=== PATIENT | male | born 1930 | race Caucasian/White ===

== ENCOUNTER 2017-10-12 20:49 | Observation (INO) | payer OTHER ==
[2017-10-12 20:59] VITALS: BMI 28.2
--- NOTE | 2017-10-12 23:24 | PDOC ---
History of Present Illness - General Chief Complaint: Nausea/Vomiting Stated Complaint: WEAKNESS Time Seen by Provider: 10/12/17 23:23 History Source: Patient Exam Limitations: Dementia - History of Present Illness Initial Comments: 10/13/17 01:49 Patient is an 86-year-old male with past medical history of hypertension, diabetes, dementia, overactive bladder, A. fib, presents to the emergency department today complaining of nausea and vomiting starting today. Patient has overall unsure as to why he is in the emergency department. He states that he was sent here for evaluation by his assisted living facility. He states that right now he feels nauseous. Denies fevers, chills, shortness of breath, chest pain, diarrhea and constipation. Past History - Travel Traveled outside of the country in the last 30 days: No Close contact w/someone who was outside of country & ill: No - Past Medical History Allergies/Adverse Reactions: Allergies Allergy/AdvReac Type Severity Reaction Status Date / Time No Known Allergies Allergy Verified 10/13/17 00:11 Home Medications: Ambulatory Orders Acetaminophen 325 mg PO PRN 10/12/17 Albuterol Sulfate Inhaler - [Ventolin Hfa Inhaler -] 2 inh PO Q6H 10/12/17 Atorvastatin Ca [Lipitor] 40 mg PO HS 10/12/17 Docusate Sodium 200 mg PO DAILY 10/12/17 Mag Hydrox/Aluminum Hyd/Simeth [Antacid Suspension] 355 ml PO DAILY 10/12/17 Metformin HCl 500 mg PO DAILY 10/12/17 Nitroglycerin [Nitrostat] 0.4 mg SL PRN 10/12/17 Polyethylene Glycol 3350 [Glycolax] 119 gm PO DAILY 10/12/17 Potassium Chloride [Klor-Con 10] 10 meq PO DAILY 10/12/17 Quetiapine Fumarate [Seroquel -] 25 mg PO HS 10/12/17 Aspirin 81 mg PO DAILY 10/13/17 Carvedilol [Coreg] 12.5 mg PO DAILY 10/13/17 Cholecalciferol (Vitamin D3) [Vitamin D3] 50,000 unit PO DAILY 10/13/17 Dabigatran Etexilate Mesylate [Pradaxa -] 150 mg PO BID 10/13/17 Isosorbide Dinitrate [Isordil -] 20 mg PO DAILY 10/13/17 Lisinopril 5 mg PO DAILY 10/13/17 Mirabegron [Myrbetriq] 50 mg PO DAILY 10/13/17 - Suicide/Smoking/Psychosocial Hx Smoking History: Unknown if ever smoked Have you smoked in the past 12 months: No Information on smoking cessation initiated: No Hx Alcohol Use: No Drug/Substance Use Hx: No Review of Systems - Review of Systems Able to Perform ROS?: Yes (limited d/t dementia) Comments:: 10/13/17 01:53 CONSTITUTIONAL: Absent: fever, chills, diaphoresis, generalized weakness, malaise, loss of appetite HEENT: Absent: rhinorrhea, nasal congestion, throat pain, throat swelling, difficulty swallowing, mouth swelling, ear pain, eye pain, visual Changes CARDIOVASCULAR: Absent: chest pain, loss of consciousness, palpitations, irregular heart rate, peripheral edema RESPIRATORY: Present: cough Absent: shortness of breath, dyspnea with exertion, orthopnea, wheezing, stridor, hemoptysis GASTROINTESTINAL: Present: abdominal pain, vomiting Absent: abdominal pain, abdominal distension, nausea, vomiting, diarrhea, constipation, melena, hematochezia GENITOURINARY: Absent: dysuria, frequency, urgency, hesitancy, hematuria, flank pain, genital pain MUSCULOSKELETAL: Absent: myalgia, arthralgia, joint swelling SKIN: Absent: rash, itching, pallor HEMATOLOGIC/IMMUNOLOGIC: Absent: easy bleeding, easy bruising, lymphadenopathy, frequent infections ENDOCRINE: Absent: unexplained weight gain, unexplained weight loss, heat intolerance, cold intolerance NEUROLOGIC: Absent: headache, focal weakness or paresthesias, dizziness, unsteady gait, seizure, mental status changes, bladder or bowel incontinence PSYCHIATRIC: Absent: anxiety, depression, suicidal or homicidal ideation, hallucinations. Is the patient limited Kinyarwanda proficient: No *Physical Exam - Vital Signs Last Vital Signs Temp Pulse Resp BP Pulse Ox 98.6 F 69 20 159/86 97 10/12/17 20:56 10/12/17 20:56 10/12/17 20:56 10/12/17 20:56 10/12/17 20:56 - Physical Exam Comments: 10/13/17 01:54 GENERAL: Well developed, well nourished. Awake and alert x2 unsure of date. No acute distress, mildly confused. HEENT: Normocephalic, atraumatic. PERRLA, EOMI. No conjunctival pallor. Sclera are non- icteric. Moist mucous membranes. Oropharynx is clear. NECK: Supple. Full ROM. No JVD. Carotid pulses 2+ and symmetric, without bruits. No thyromegaly. No lymphadenopathy. CARDIOVASCULAR: Regular rate and rhythm. No murmurs, rubs, or gallops. Distal pulses are 2+ and symmetric. PULMONARY: No evidence of respiratory distress. Lungs clear to auscultation bilaterally. No wheezing, rales or rhonchi. ABDOMINAL: Soft. Non-tender. Non-distended. No rebound or guarding. No organomegaly. Normoactive bowel sounds. MUSCULOSKELETAL Normal range of motion at all joints. No bony deformities or tenderness. No CVA tenderness. EXTREMITIES: No cyanosis. No clubbing. No edema. No calf tenderness. SKIN: Warm and dry. Normal capillary refill. No rashes. No jaundice. NEUROLOGICAL: Alert, awake, appropriate. Cranial nerves 2-12 intact. No deficits to light touch and temperature in face, upper extremities and lower extremities. No motor deficits in the in face, upper extremities and lower extremities. Normoreflexic in the upper and lower extremities. Normal speech. Toes are down- going bilaterally. Gait is normal without ataxia. PSYCHIATRIC: Cooperative. Good eye contact. Appropriate mood and affect. ED Treatment Course - LABORATORY CBC & Chemistry Diagram: 10/13/17 00:32 10/13/17 00:32 Medical Decision Making - Medical Decision Making 10/13/17 01:52 Patient is an 86-year-old male with past medical history of hypertension, diabetes, dementia, overactive bladder, A. fib, presents to the emergency department today complaining of nausea and vomiting starting today.Upon further investigation patient also has an ICD, and cardiac surgery at some point. Given the patient is uncertain as to why he is in the emergency department Will initiate a broad workup at this time. We'll rule out ACS, pneumonia, gastroenteritis, flu 1.CBC, CMP, PT/INR, lipase, troponin, UA 2.EKG, chest x-ray, influenza swab 3.Zofran, fluids 4.reevaluate 10/13/17 02:55 EKG shows NSR with a rate of 68 bpm QTC 455, left bundle branch block, left axis deviation no acute ST-T wave changes. No old EKGs available for comparison at this time. [facility] to see if they have an old EKG to compare to. First troponin is negative lab work is relatively unremarkable. 10/13/17 05:[address] [facility] They state that the patient was sent to the emergency department today for complaints of generalized weakness and burning sensation in his chest in addition to vomiting. They do not have an old EKG on file for the patient. At this time will place the patient in telemetry observation for rule out atypical chest pain /ACS. Spoke with Dr. Bruce who accepts the patient to telemetry obs. *DC/Admit/Observation/Transfer Diagnosis at time of Disposition: Atypical chest pain, LBBB (left bundle branch block) Vomiting Qualifiers: Vomiting type: unspecified Vomiting Intractability: non-intractable Nausea presence: with nausea Qualified Code(s): R11.2 - Nausea with vomiting, unspecified - Discharge Dispostion Condition at time of disposition: Stable Admit: Yes - Referrals - Patient Instructions - Post Discharge Activity
[2017-10-13] MEDS ORDERED: SODIUM CHLORIDE 1,000 ML IV STA (00:04)
[2017-10-13] MEDS ORDERED: ONDANSETRON 4 MG/2 ML VIAL IVPUSH ONE (00:04)
[2017-10-13] MEDS ORDERED: ONDANSETRON 4 MG/2 ML VIAL ONE (00:41)
[2017-10-13 00:42] LABS: BASO % 0.5 % (0-2.0); EOS % 5.2 % (0-4.5); HEMATOCRIT 38.2 % (35.4-49); LYMPH % 20.1 % (8-40); MCH 29.2 pg (25.7-33.7); MCHC 33.9 g/dl (32.0-35.9); MEAN CELL VOLUME 86.1 fl (80-96); MEAN PLT VOLUME 7.6 fl (7.5-11.1); MONO % 12.6 % (3.8-10.2); NEUT % 61.6 % (42.8-82.8); PLATELET COUNT 157 K/MM3 (134-434); RBC 4.44 M/mm3 (4.00-5.60); RDW 14.6 % (11.9-15.9); WHITE BLOOD COUNT 4.9 K/mm3 (4.0-10.0)
[2017-10-13 00:59] LABS: INR 1.25 (0.82-1.09); PROTHROMBIN TIME (PATIENT) 14.1 SEC (9.98-11.88)
[2017-10-13 01:17] LABS: ALBUMIN 3.6 g/dl (3.4-5.0); ALK PHOS 117 U/L (45-117); ANION GAP 10 (8-16); BILIRUBIN,TOTAL 0.5 mg/dL (0.2-1.0); BLOOD UREA NITROGEN 15 mg/dL (7-18); CALCIUM 9.1 mg/dL (8.5-10.1); CHLORIDE 101 mmol/L (98-107); CO2 26 mmol/L (21-32); CREATININE 0.8 mg/dL (0.7-1.3); GLUCOSE,RANDOM 161 mg/dL (74-106); SGOT/AST 20 U/L (15-37); SGPT/ALT 29 U/L (12-78); SODIUM 137 mmol/L (136-145); TOT PROT 7.2 g/dl (6.4-8.2)
--- NOTE | 2017-10-13 04:59 | PN ---
Teaching Attending Note Name of Resident: Aren Arguello ATTENDING PHYSICIAN STATEMENT I saw and evaluated the patient. I reviewed the resident's note and discussed the case with the resident. I agree with the resident's findings and plan as documented. SUBJECTIVE: 86 M With DM, HTN HLD, ? CABG who presents with nausea, vomiting and burning chest pain. Pt. unwilling to offer rmore history OBJECTIVE: Physical: VS: Vital Signs Period Temp Pulse Resp BP Sys/Higgins Pulse Ox Last 24 Hr 98.6 F 69 20 159/86 97 REFUSED Phyical Exam CBCD WBC 4.9 K/mm3 (4.0-10.0) 10/13/17 00:32 RBC 4.44 M/mm3 (4.00-5.60) 10/13/17 00:32 Hgb 13.0 GM/dL (11.7-16.9) 10/13/17 00:32 Hct 38.2 % (35.4-49) 10/13/17 00:32 MCV 86.1 fl (80-96) 10/13/17 00:32 MCHC 33.9 g/dl (32.0-35.9) 10/13/17 00:32 RDW 14.6 % (11.9-15.9) 10/13/17 00:32 Plt Count 157 K/MM3 (134-434) 10/13/17 00:32 MPV 7.6 fl (7.5-11.1) 10/13/17 00:32 CMP Sodium 137 mmol/L (136-145) 10/13/17 00:32 Potassium 4.0 mmol/L (3.5-5.1) 10/13/17 00:32 Chloride 101 mmol/L (98-107) 10/13/17 00:32 Carbon Dioxide 26 mmol/L (21-32) 10/13/17 00:32 Anion Gap 10 (8-16) 10/13/17 00:32 BUN 15 mg/dL (7-18) 10/13/17 00:32 Creatinine 0.8 mg/dL (0.7-1.3) 10/13/17 00:32 Creat Clearance w eGFR > 60 (>60) 10/13/17 00:32 Random Glucose 161 mg/dL (74-106) H 10/13/17 00:32 Calcium 9.1 mg/dL (8.5-10.1) 10/13/17 00:32 Total Bilirubin 0.5 mg/dL (0.2-1.0) 10/13/17 00:32 AST 20 U/L (15-37) 10/13/17 00:32 ALT 29 U/L (12-78) 10/13/17 00:32 Alkaline Phosphatase 117 U/L (45-117) 10/13/17 00:32 Total Protein 7.2 g/dl (6.4-8.2) 10/13/17 00:32 Albumin 3.6 g/dl (3.4-5.0) 10/13/17 00:32 CARDIAC ENZYMES Creatine Kinase 53 IU/L (39-308) 10/13/17 00:32 Troponin I < 0.02 ng/ml (0.00-0.05) 10/13/17 00:32 EKG- LBBB HEART6 ASSESSMENT AND PLAN: 86 M With DM, HTN HLD, ? CABG who presents with nausea, vomiting and burning chest pain 1.) Atypical Chest Pain - Trend Trop/EKG - C/W ASA, Statin and BB - Nitro/Morphine prn if chest pain reoccurs 2.) HTN - C?W Home meds 3.) HLD - C/W Statin 4.) ? Hx. oF Afib - C/W Pradexa - BB 5.) Dementia - Monitor QtC - C/W Seroquel 5.) Dvt Ppx - On Pradexa Place in Med- Tele
--- NOTE | 2017-10-13 05:50 | PN ---
Teaching Attending Note Name of Resident: Aren Arguello ATTENDING PHYSICIAN STATEMENT I saw and evaluated the patient. I reviewed the resident's note and discussed the case with the resident. I agree with the resident's findings and plan as documented. SUBJECTIVE: OBJECTIVE: ASSESSMENT AND PLAN:
--- NOTE | 2017-10-13 05:58 | HP ---
CHIEF COMPLAINT: nausea/vomiting PCP: unknown HISTORY OF PRESENT ILLNESS: Pt is an 86 y/o M with PMH HTN, DM, dementia, overactive bladder, A. fib who came to ED with complaint of nausea and vomiting. Pt uncooperative and unable/ unwilling to give history. History from record. Pt awake, alert, and in no distress. Unclear if oriented as pt is not cooperative. ER course was notable for: (1) labs unremarkable (2) CXR unremarkable (pending official read). EKG with wide complex, discordant T in precordium, with Q throughout precordium (likely due to PPM) (3) Recent Travel: denies PAST MEDICAL HISTORY: as above PAST SURGICAL HISTORY: Social History: Smoking: unknown Alcohol: unknown Drugs: unknown Family History: unknown Allergies No Known Allergies Allergy (Verified 10/13/17 00:11) HOME MEDICATIONS: Home Medications Medication Instructions Recorded Acetaminophen 325 mg PO PRN 10/12/17 Albuterol Sulfate Inhaler - 2 inh PO Q6H 10/12/17 [Ventolin Hfa Inhaler -] Atorvastatin Ca [Lipitor] 40 mg PO HS 10/12/17 Docusate Sodium 200 mg PO DAILY 10/12/17 Mag Hydrox/Aluminum Hyd/Simeth 355 ml PO DAILY 10/12/17 [Antacid Suspension] Metformin HCl 500 mg PO DAILY 10/12/17 Nitroglycerin [Nitrostat] 0.4 mg SL PRN 10/12/17 Polyethylene Glycol 3350 [Glycolax] 119 gm PO DAILY 10/12/17 Potassium Chloride [Klor-Con 10] 10 meq PO DAILY 10/12/17 Quetiapine Fumarate [Seroquel -] 25 mg PO HS 10/12/17 Aspirin 81 mg PO DAILY 10/13/17 Carvedilol [Coreg] 12.5 mg PO DAILY 10/13/17 Cholecalciferol (Vitamin D3) 50,000 unit PO DAILY 10/13/17 [Vitamin D3] Dabigatran Etexilate Mesylate 150 mg PO BID 10/13/17 [Pradaxa -] Isosorbide Dinitrate [Isordil -] 20 mg PO DAILY 10/13/17 Lisinopril 5 mg PO DAILY 10/13/17 Mirabegron [Myrbetriq] 50 mg PO DAILY 10/13/17 REVIEW OF SYSTEMS Unable to obtain PHYSICAL EXAMINATION Vital Signs - 24 hr 10/12/17 20:56 Temperature 98.6 F Pulse Rate 69 Respiratory 20 Rate Blood Pressure 159/86 O2 Sat by Pulse 97 Oximetry (%) Pt refusing exam. Laboratory Results - last 24 hr 10/13/17 10/13/17 10/13/17 00:32 00:32 00:32 WBC 4.9 RBC 4.44 Hgb 13.0 Hct 38.2 MCV 86.1 MCH 29.2 MCHC 33.9 RDW 14.6 Plt Count 157 MPV 7.6 Neutrophils % 61.6 Lymphocytes % 20.1 Monocytes % 12.6 H Eosinophils % 5.2 H Basophils % 0.5 PT with INR INR Sodium 137 Potassium 4.0 Chloride 101 Carbon Dioxide 26 Anion Gap 10 BUN 15 Creatinine 0.8 Creat Clearance w eGFR > 60 Random Glucose 161 H Calcium 9.1 Total Bilirubin 0.5 AST 20 ALT 29 Alkaline Phosphatase 117 Creatine Kinase Troponin I Total Protein 7.2 Albumin 3.6 Lipase 172 10/13/17 10/13/17 00:32 00:32 WBC RBC Hgb Hct MCV MCH MCHC RDW Plt Count MPV Neutrophils % Lymphocytes % Monocytes % Eosinophils % Basophils % PT with INR 14.10 H INR 1.25 H Sodium Potassium Chloride Carbon Dioxide Anion Gap BUN Creatinine Creat Clearance w eGFR Random Glucose Calcium Total Bilirubin AST ALT Alkaline Phosphatase Creatine Kinase 53 Troponin I < 0.02 Total Protein Albumin Lipase ASSESSMENT/PLAN: Pt is an 86 y/o M with PMH DM, HTN, overactive bladder, Afib with sternotomy scar and apical single lead pacemaker visible on CXR who presented with nausea and vomiting. Per record, pt felt ok during interview in EM. Was uncooperative for my H&P. Pt is being observed because of EKG revealing possible new LBBB. #r/o ACS -possible new LBBB on EKG. likely due to PPM. Repeat EKG in am -Trop neg. f/u repeat. -Pt did not complain of CP but had nausea/vomiting which could be anginal equivalent -Cardio consult (Dr. Edward) #DM -BGM -ISS #Dementia -1:1 obs as pt found dressing in street clothes wanting to leave ED -fall precautions #PPx -Hep Sub Q #Dispo -obs Aren Arguello MD PGY-1 IM Visit type - Emergency Visit Emergency Visit: Yes ED Registration Date: 10/13/17 Care time: The patient presented to the Emergency Department on the above date and was hospitalized for further evaluation of their emergent condition. - New Patient This patient is new to me today: Yes Date on this admission: 10/17/17 - Critical Care Critical Care patient: No
[2017-10-13] MEDS ORDERED: HEPARIN NA (PORCINE) 5,000 UNITS/ML 1ML VIAL SQ SCH (06:00)
[2017-10-13] MEDS ORDERED: MAG HYDROX/AL HYDROX/SIMETH 30 ML UNIT-DOSE CUP PO PRN (06:50)
[2017-10-13] MEDS ORDERED: INSULIN SLIDING SCALE (NOVOLOG) 1 VIAL SQ SCH (07:00)
[2017-10-13] MEDS ORDERED: metFORMIN HCL 500 MG TABLET (FP) PO SCH (07:00)
[2017-10-13] MEDS ORDERED: ISOSORBIDE MONONITRATE 30 MG TAB.SR.24H (FP) PO SCH (10:00)
[2017-10-13] MEDS ORDERED: ISOSORBIDE DINITRATE 20 MG TABLET (FP) PO SCH (10:00)
[2017-10-13] MEDS ORDERED: ASPIRIN 81 MG CHEWABLE TABLETS PO SCH (10:00)
[2017-10-13] MEDS ORDERED: DOCUSATE SODIUM 100 MG CAPSULE (FP) PO SCH (10:00)
[2017-10-13] MEDS ORDERED: CARVEDILOL 12.5 MG TABLET (FP) PO SCH (10:00)
[2017-10-13] MEDS ORDERED: LISINOPRIL 5 MG TABLET (FP) PO SCH (10:00)
[2017-10-13] MEDS ORDERED: PATIENT'S OWN MEDICATION (NON-FORMULARY) (Mirabegron [Myrbetriq] 50 MG) PO SCH (10:00)
[2017-10-13 10:32] LABS: BASO % 0.4 % (0-2.0); EOS % 3.7 % (0-4.5); HEMATOCRIT 37.5 % (35.4-49); HEMOGLOBIN 12.6 GM/dL (11.7-16.9); LYMPH % 13.4 % (8-40); MCH 28.9 pg (25.7-33.7); MCHC 33.7 g/dl (32.0-35.9); MEAN CELL VOLUME 85.8 fl (80-96); MEAN PLT VOLUME 7.2 fl (7.5-11.1); MONO % 9.7 % (3.8-10.2); NEUT % 72.8 % (42.8-82.8); PLATELET COUNT 140 K/MM3 (134-434); RBC 4.37 M/mm3 (4.00-5.60); RDW 14.6 % (11.9-15.9); WHITE BLOOD COUNT 4.9 K/mm3 (4.0-10.0)
--- NOTE | 2017-10-13 10:59 | EKG ---
Test Reason : Blood Pressure : / mmHG Vent. Rate : 068 BPM Atrial Rate : 068 BPM P-R Int : 210 ms QRS Dur : 140 ms QT Int : 428 ms P-R-T Axes : 000 -32 072 degrees QTc Int : 455 ms SINUS RHYTHM WITH 1ST DEGREE A-V BLOCK LEFT AXIS DEVIATION LEFT BUNDLE BRANCH BLOCK ABNORMAL ECG NO PREVIOUS ECGS AVAILABLE Confirmed by QASIM MACIAS MD ([id number]) on 10/13/2017 10:59:08 AM Referred By: Confirmed By:QASIM MACIAS MD
[2017-10-13 11:20] LABS: ALBUMIN 3.5 g/dl (3.4-5.0); ANION GAP 6 (8-16); BLOOD UREA NITROGEN 14 mg/dL (7-18); CALCIUM 8.4 mg/dL (8.5-10.1); CHLORIDE 103 mmol/L (98-107); CO2 28 mmol/L (21-32); CREATININE 0.9 mg/dL (0.7-1.3); GLUCOSE,RANDOM 163 mg/dL (74-106); POTASSIUM 4.6 mmol/L (3.5-5.1); SGOT/AST 16 U/L (15-37); SGPT/ALT 26 U/L (12-78); SODIUM 137 mmol/L (136-145)
[2017-10-13 11:25] LABS: ALK PHOS 113 U/L (45-117); BILIRUBIN,TOTAL 0.7 mg/dL (0.2-1.0); TOT PROT 6.5 g/dl (6.4-8.2)
--- NOTE | 2017-10-13 12:11 | PN ---
Physical Exam: SUBJECTIVE: 86 M With DM, HTN HLD, S/p CABG who presents with nausea, vomiting and burning chest pain. Pt. unwilling to offer rmore history Pt seen and examined at bed side. denies any chest pain, N/V/D/C. denies any abdominal pain. OBJECTIVE: Vital Signs Period Temp Pulse Resp BP Sys/Higgins Pulse Ox Last 24 Hr 98 F-98.6 F 69-90 18-24 135-159/75-86 97-98 GENERAL: The patient is awake, alert, and fully oriented, in no acute distress. HEAD: Normal with no signs of trauma. EYES: sclera anicteric, conjunctiva clear. ENT: moist mucous membranes. NECK: supple. LUNGS: Breath sounds equal, clear to auscultation bilaterally, no wheezes, no crackles, no accessory muscle use. HEART: Regular rate and rhythm, S1, S2 without murmur, rub or gallop. ABDOMEN: Soft, nontender, nondistended, normoactive bowel sounds, no guarding, no rebound, no hepatosplenomegaly, no masses. EXTREMITIES: 2+ pulses, warm, well-perfused, no edema. NEUROLOGICAL: no focal deficit. Normal speech, gait not observed. PSYCH: Normal mood, normal affect. SKIN: Warm, dry, Laboratory Results - last 24 hr 10/13/17 10/13/17 10/13/17 00:32 00:32 00:32 WBC 4.9 RBC 4.44 Hgb 13.0 Hct 38.2 MCV 86.1 MCH 29.2 MCHC 33.9 RDW 14.6 Plt Count 157 MPV 7.6 Neutrophils % 61.6 Lymphocytes % 20.1 Monocytes % 12.6 H Eosinophils % 5.2 H Basophils % 0.5 PT with INR INR Sodium 137 Potassium 4.0 Chloride 101 Carbon Dioxide 26 Anion Gap 10 BUN 15 Creatinine 0.8 Creat Clearance w eGFR > 60 Random Glucose 161 H Calcium 9.1 Total Bilirubin 0.5 AST 20 ALT 29 Alkaline Phosphatase 117 Creatine Kinase Troponin I Total Protein 7.2 Albumin 3.6 Lipase 172 10/13/17 10/13/17 10/13/17 00:32 00:32 10:00 WBC 4.9 RBC 4.37 Hgb 12.6 Hct 37.5 MCV 85.8 MCH 28.9 MCHC 33.7 RDW 14.6 Plt Count 140 MPV 7.2 L Neutrophils % 72.8 Lymphocytes % 13.4 D Monocytes % 9.7 Eosinophils % 3.7 Basophils % 0.4 PT with INR 14.10 H INR 1.25 H Sodium Potassium Chloride Carbon Dioxide Anion Gap BUN Creatinine Creat Clearance w eGFR Random Glucose Calcium Total Bilirubin AST ALT Alkaline Phosphatase Creatine Kinase 53 Troponin I < 0.02 Total Protein Albumin Lipase 10/13/17 10:00 WBC RBC Hgb Hct MCV MCH MCHC RDW Plt Count MPV Neutrophils % Lymphocytes % Monocytes % Eosinophils % Basophils % PT with INR INR Sodium 137 Potassium 4.6 Chloride 103 Carbon Dioxide 28 Anion Gap 6 L BUN 14 Creatinine 0.9 Creat Clearance w eGFR > 60 Random Glucose 163 H Calcium 8.4 L Total Bilirubin 0.7 D AST 16 ALT 26 Alkaline Phosphatase 113 Creatine Kinase Troponin I < 0.02 Total Protein 6.5 Albumin 3.5 Lipase Active Medications Generic Name Dose Route Start Last Admin Trade Name Freq PRN Reason Stop Dose Admin Al Hydroxide/Mg Hydroxide 30 ml 10/13/17 06:50 Mylanta Oral Suspension - PO DAILY PRN INDIGESTION Aspirin 81 mg 10/13/17 10:00 10/13/17 09:36 Asa - PO 81 mg DAILY FRANCINE Administration Atorvastatin Calcium 40 mg 10/13/17 22:00 Lipitor - PO HS [facility] Carvedilol 12.5 mg 10/13/17 10:00 10/13/17 09:36 Coreg - PO 12.5 mg DAILY FRANCINE Administration Docusate Sodium 200 mg 10/13/17 10:00 10/13/17 09:36 Colace - PO 200 mg DAILY FRANCINE Administration Ergocalciferol 50,000 unit 10/18/17 10:00 Drisdol - PO Q30D FRANCINE Insulin Aspart 1 vial 10/13/17 07:00 10/13/17 12:10 Novolog Vial Sliding Scale - SQ Not Given ACHS [facility] Protocol Isosorbide Mononitrate 30 mg 10/13/17 10:00 10/13/17 09:36 Imdur - PO 30 mg DAILY FRANCINE Administration Lisinopril 5 mg 10/13/17 10:00 10/13/17 09:36 Prinivil PO 5 mg DAILY FRANCINE Administration Metformin HCl 500 mg 10/13/17 07:00 10/13/17 09:35 Glucophage - PO 500 mg DAILY@0700 FRANCINE Administration Non-Formulary Medication 50 mg 10/13/17 10:00 Mirabegron [Myrbetriq] PO DAILY FRANCINE Quetiapine Fumarate 25 mg 10/13/17 22:00 Seroquel - PO HS FRANCINE CBC, BMP 10/13/17 10:00 10/13/17 10:00 ASSESSMENT/PLAN: 86 M With DM, HTN HLD, ? CABG who presents with nausea, vomiting and burning chest pain 1.) Atypical Chest Pain - Trend Trop/EKG - C/W ASA, Statin and BB - Nitro/Morphine prn if chest pain reoccurs 2.) HTN - C/W Home meds 3.) HLD - C/W Statin 4.) Hx. oF Afib - C/W Pradexa - BB 5.) Dementia - Monitor QtC - C/W Seroquel 5.) Dvt Ppx - On Pradexa Place in Med- Tele Visit type - Emergency Visit Emergency Visit: Yes ED Registration Date: 10/13/17 Care time: The patient presented to the Emergency Department on the above date and was hospitalized for further evaluation of their emergent condition. - New Patient This patient is new to me today: Yes Date on this admission: 10/16/17 - Critical Care Critical Care patient: No - Discharge Referral Referred to [facility] Med P.C.: No
--- NOTE | 2017-10-13 12:30 | CON.CARD ---
Consult Consult Specialty:: cardiology - History of Present Illness Chief Complaint: Afib. Abnormal ECG History of Present Illness: 86 yo M with known Afib, single lead PPM, DM, HTN. He is admitted with nausea and vomiting. ECG showing Afib with LBBB. Labs are unremarkable. He has a prior history of heart operation. There is no dyspnea, denies chest pain and he seems comfortable. - History Source History Provided By: Patient, Medical Record Limitations to Obtaining History: Dementia - Past Medical History Cardio/Vascular: Yes: AFIB - Past Surgical History Past Surgical History: Yes: Bypass - Alcohol/Substance Use Hx Alcohol Use: No - Smoking History Smoking history: Unknown if ever smoked Have you smoked in the past 12 months: No Home Medications - Allergies Allergies/Adverse Reactions: Allergies Allergy/AdvReac Type Severity Reaction Status Date / Time No Known Allergies Allergy Verified 10/13/17 00:11 - Home Medications Home Medications: Ambulatory Orders Acetaminophen 325 mg PO PRN 10/12/17 Albuterol Sulfate Inhaler - [Ventolin HFA Inhaler -] 2 inh PO Q6H 10/12/17 Atorvastatin Ca [Lipitor] 40 mg PO HS 10/12/17 Docusate Sodium 200 mg PO DAILY 10/12/17 Mag Hydrox/Aluminum Hyd/Simeth [Antacid Suspension] 355 ml PO DAILY 10/12/17 Metformin HCl 500 mg PO DAILY 10/12/17 Nitroglycerin [Nitrostat] 0.4 mg SL PRN 10/12/17 Polyethylene Glycol 3350 [Glycolax] 119 gm PO DAILY 10/12/17 Potassium Chloride [Klor-Con 10] 10 meq PO DAILY 10/12/17 Quetiapine Fumarate [Seroquel -] 25 mg PO HS 10/12/17 Aspirin 81 mg PO DAILY 10/13/17 Carvedilol [Coreg] 12.5 mg PO DAILY 10/13/17 Cholecalciferol (Vitamin D3) [Vitamin D3] 50,000 unit PO DAILY 10/13/17 Dabigatran Etexilate Mesylate [Pradaxa -] 150 mg PO BID 10/13/17 Isosorbide Dinitrate [Isordil -] 20 mg PO DAILY 10/13/17 Lisinopril 5 mg PO DAILY 10/13/17 Mirabegron [Myrbetriq] 50 mg PO DAILY 10/13/17 Review of Systems Unable to obtain ROS, reason: Dementia Vital Signs: Vital Signs Temperature 98 F 10/13/17 10:00 Pulse Rate 83 10/13/17 10:00 Respiratory Rate 24 10/13/17 10:00 Blood Pressure 135/76 10/13/17 10:00 O2 Sat by Pulse Oximetry (%) 98 10/13/17 05:49 Constitutional: Yes: Well Nourished, No Distress, Calm Eyes: Yes: Conjunctiva Clear, EOM Intact HENT: Yes: Atraumatic, Normocephalic Neck: Yes: Supple, Trachea Midline Respiratory: Yes: Regular, CTA Bilaterally Gastrointestinal: Yes: Normal Bowel Sounds, Soft Cardiovascular: Yes: Regular Rate and Rhythm JVD: No Carotid Bruit: No Heart Sounds: Yes: S1, S2 Murmur: No: Systolic Murmur, Diastolic Murmur Extremities: Yes: WNL Edema: No - Other Data Labs, Other Data: CBC, BMP 10/13/17 10:00 10/13/17 10:00 INR, PTT INR 1.25 (0.82-1.09) H 10/13/17 00:32 Troponin, BNP 10/13/17 10/13/17 00:32 10:00 Troponin I < 0.02 < 0.02 Troponin, BNP 10/13/17 10/13/17 00:32 10:00 Troponin I < 0.02 < 0.02 Afib LBBB Imaging - Results Chest X-ray: Report Reviewed Problem List - Problems (1) LBBB (left bundle branch block) Code(s): I44.7 - LEFT BUNDLE-BRANCH BLOCK, UNSPECIFIED Assessment/Plan History of heart disease with single lead PPM and Afib admitted with vomiting. ECG with LBBB telemetry shows intermittent demand pacing. No signs of heart failure or ischemia No further in-patient testing is required. Will see as needed
--- NOTE | 2017-10-13 14:17 | DS ---
Physical Exam: SUBJECTIVE: Patient seen and examined at bedside. chest pain and nausea has resolved. denies any fever, chills,abdominal pain or urinary symptoms brandt nd cleared by timekeeper supervisor to DC to SNF he came from. OBJECTIVE: Vital Signs Period Temp Pulse Resp BP Sys/Higgins Pulse Ox Last 24 Hr 98 F-98.6 F 69-90 18-24 135-159/75-86 97-98 PHYSICAL EXAM GENERAL: The patient is awake, alert, oriented, in no acute distress. HEAD: Normal with no signs of trauma. EYES: sclera anicteric, conjunctiva clear. ENT: moist mucous membranes. NECK: supple. LUNGS: Breath sounds equal, clear to auscultation bilaterally, no wheezes, no crackles, no accessory muscle use. HEART: Regular rate and rhythm, S1, S2 without murmur, rub or gallop.med sternal scar ABDOMEN: Soft, nontender, nondistended, normoactive bowel sounds, no guarding, no rebound, no hepatosplenomegaly, no masses. EXTREMITIES: 2+ pulses, warm, well-perfused, no edema. left leg scar NEUROLOGICAL: Cranial nerves II through XII grossly intact. Normal speech, gait not observed. PSYCH: Normal mood, normal affect. SKIN: Warm, dry, normal turgor, Home meds Acetaminophen 325 mg PO PRN 10/12/17 Albuterol Sulfate Inhaler - [Ventolin HFA Inhaler -] 2 inh PO Q6H 10/12/17 Atorvastatin Ca [Lipitor] 40 mg PO HS 10/12/17 Docusate Sodium 200 mg PO DAILY 10/12/17 Mag Hydrox/Aluminum Hyd/Simeth [Antacid Suspension] 355 ml PO DAILY 10/12/17 Metformin HCl 500 mg PO DAILY 10/12/17 Nitroglycerin [Nitrostat] 0.4 mg SL PRN 10/12/17 Polyethylene Glycol 3350 [Glycolax] 119 gm PO DAILY 10/12/17 Potassium Chloride [Klor-Con 10] 10 meq PO DAILY 10/12/17 Quetiapine Fumarate [Seroquel -] 25 mg PO HS 10/12/17 Aspirin 81 mg PO DAILY 10/13/17 Carvedilol [Coreg] 12.5 mg PO DAILY 10/13/17 Cholecalciferol (Vitamin D3) [Vitamin D3] 50,000 unit PO DAILY 10/13/17 Dabigatran Etexilate Mesylate [Pradaxa -] 150 mg PO BID 10/13/17 Isosorbide Dinitrate [Isordil -] 20 mg PO DAILY 10/13/17 Lisinopril 5 mg PO DAILY 10/13/17 Mirabegron [Myrbetriq] 50 mg PO DAILY 10/13/17 LABS Laboratory Results - last 24 hr 10/13/17 10/13/17 10/13/17 00:32 00:32 00:32 WBC 4.9 RBC 4.44 Hgb 13.0 Hct 38.2 MCV 86.1 MCH 29.2 MCHC 33.9 RDW 14.6 Plt Count 157 MPV 7.6 Neutrophils % 61.6 Lymphocytes % 20.1 Monocytes % 12.6 H Eosinophils % 5.2 H Basophils % 0.5 PT with INR INR Sodium 137 Potassium 4.0 Chloride 101 Carbon Dioxide 26 Anion Gap 10 BUN 15 Creatinine 0.8 Creat Clearance w eGFR > 60 POC Glucometer Random Glucose 161 H Calcium 9.1 Total Bilirubin 0.5 AST 20 ALT 29 Alkaline Phosphatase 117 Creatine Kinase Troponin I Total Protein 7.2 Albumin 3.6 Lipase 172 10/13/17 10/13/17 10/13/17 00:32 00:32 10:00 WBC 4.9 RBC 4.37 Hgb 12.6 Hct 37.5 MCV 85.8 MCH 28.9 MCHC 33.7 RDW 14.6 Plt Count 140 MPV 7.2 L Neutrophils % 72.8 Lymphocytes % 13.4 D Monocytes % 9.7 Eosinophils % 3.7 Basophils % 0.4 PT with INR 14.10 H INR 1.25 H Sodium Potassium Chloride Carbon Dioxide Anion Gap BUN Creatinine Creat Clearance w eGFR POC Glucometer Random Glucose Calcium Total Bilirubin AST ALT Alkaline Phosphatase Creatine Kinase 53 Troponin I < 0.02 Total Protein Albumin Lipase 10/13/17 10/13/17 10:00 12:08 WBC RBC Hgb Hct MCV MCH MCHC RDW Plt Count MPV Neutrophils % Lymphocytes % Monocytes % Eosinophils % Basophils % PT with INR INR Sodium 137 Potassium 4.6 Chloride 103 Carbon Dioxide 28 Anion Gap 6 L BUN 14 Creatinine 0.9 Creat Clearance w eGFR > 60 POC Glucometer 133 Random Glucose 163 H Calcium 8.4 L Total Bilirubin 0.7 D AST 16 ALT 26 Alkaline Phosphatase 113 Creatine Kinase Troponin I < 0.02 Total Protein 6.5 Albumin 3.5 Lipase CBC, BMP 10/13/17 10:00 10/13/17 10:00 CXR 10/13/2017 Lung clear, pacemaker in place EKG: Sinus rhythm with 1 st degree AV block.left axis deviation HOSPITAL COURSE: Date of Admission:10/13/17 Date of Discharge: 10/13/17 is an 86 M With DM, HTN HLD, CABG who presents with nausea, vomiting and burning chest pain was admitted to [facility] for atypical chest pain, trop was negative x3 , EKG with LBBB , sinus rhythm and left axis deviation, with intermittent demand pacing..continue ASA, BB, statin. for HTN we resume his home meds , for HLD continue home statin, he has a h.o AFIB will continue on pradexa. he is on Seroquel for dementia resume home dose. pt was seen by cardiology who recommend no further workup as inpatient and cleared him to go to SNF he came from [facility]. Minutes to complete discharge: 40 Discharge Summary Reason For Visit: ATYPICAL CHEST PAIN/LEFT BUNDLE BRANCH Current Active Problems DM (diabetes mellitus) (Chronic) Dementia (Chronic) LBBB (left bundle branch block) (Chronic) Condition: Stable - Instructions Diet, Activity, Other Instructions: You were admitted to the hospital for acute chest pain, cardiac work up has been negative and you were seen by a timekeeper supervisor in the hopsital and you are cleared to go home and continue to follow up with your own timekeeper supervisor outside. you will be discharged to [facility] where you came from Please follow up with your primary care physician within one week Please follow up with your timekeeper supervisor within one week Please resume all your home meds as prior to this admission If you develop chest pain , fever, chills, sweating call 911 or come back to ED [facility]. Disposition: [facility] - Home Medications Comprehensive Discharge Medication List: Ambulatory Orders Acetaminophen 325 mg PO PRN 10/12/17 Albuterol Sulfate Inhaler - [Ventolin HFA Inhaler -] 2 inh PO Q6H 10/12/17 Atorvastatin Ca [Lipitor] 40 mg PO HS 10/12/17 Docusate Sodium 200 mg PO DAILY 10/12/17 Mag Hydrox/Aluminum Hyd/Simeth [Antacid Suspension] 355 ml PO DAILY 10/12/17 Metformin HCl 500 mg PO DAILY 10/12/17 Nitroglycerin [Nitrostat] 0.4 mg SL PRN 10/12/17 Polyethylene Glycol 3350 [Glycolax] 119 gm PO DAILY 10/12/17 Potassium Chloride [Klor-Con 10] 10 meq PO DAILY 10/12/17 Quetiapine Fumarate [Seroquel -] 25 mg PO HS 10/12/17 Aspirin 81 mg PO DAILY 10/13/17 Carvedilol [Coreg] 12.5 mg PO DAILY 10/13/17 Cholecalciferol (Vitamin D3) [Vitamin D3] 50,000 unit PO DAILY 10/13/17 Dabigatran Etexilate Mesylate [Pradaxa -] 150 mg PO BID 10/13/17 Isosorbide Dinitrate [Isordil -] 20 mg PO DAILY 10/13/17 Lisinopril 5 mg PO DAILY 10/13/17 Mirabegron [Myrbetriq] 50 mg PO DAILY 10/13/17 This patient is new to me today: Yes Date on this admission: 10/16/17 Emergency Visit: Yes ED Registration Date: 10/13/17 Care time: The patient presented to the Emergency Department on the above date and was hospitalized for further evaluation of their emergent condition. Critical Care patient: No - Discharge Referral Referred to [facility] Med P.C.: No
[2017-10-13 15:03] VITALS: BP 143/79; PULSE 68; TEMP 98.5
--- NOTE | 2017-10-13 17:48 | PN ---
Teaching Attending Note Name of Resident: John Elena ATTENDING PHYSICIAN STATEMENT I saw and evaluated the patient. I reviewed the resident's note and discussed the case with the resident. I agree with the resident's findings and plan as documented. SUBJECTIVE: Patient is comfrotable with no acute distress, no further chest pain, no nausea or vomiting. OBJECTIVE: Vital Signs Temperature 98.5 F 10/13/17 14:00 Pulse Rate 68 10/13/17 14:00 Respiratory Rate 20 10/13/17 14:00 Blood Pressure 143/79 10/13/17 14:00 O2 Sat by Pulse Oximetry (%) 98 10/13/17 11:00 CBCD WBC 4.9 K/mm3 (4.0-10.0) 10/13/17 10:00 RBC 4.37 M/mm3 (4.00-5.60) 10/13/17 10:00 Hgb 12.6 GM/dL (11.7-16.9) 10/13/17 10:00 Hct 37.5 % (35.4-49) 10/13/17 10:00 MCV 85.8 fl (80-96) 10/13/17 10:00 MCHC 33.7 g/dl (32.0-35.9) 10/13/17 10:00 RDW 14.6 % (11.9-15.9) 10/13/17 10:00 Plt Count 140 K/MM3 (134-434) 10/13/17 10:00 MPV 7.2 fl (7.5-11.1) L 10/13/17 10:00 CMP Sodium 137 mmol/L (136-145) 10/13/17 10:00 Potassium 4.6 mmol/L (3.5-5.1) 10/13/17 10:00 Chloride 103 mmol/L (98-107) 10/13/17 10:00 Carbon Dioxide 28 mmol/L (21-32) 10/13/17 10:00 Anion Gap 6 (8-16) L 10/13/17 10:00 BUN 14 mg/dL (7-18) 10/13/17 10:00 Creatinine 0.9 mg/dL (0.7-1.3) 10/13/17 10:00 Creat Clearance w eGFR > 60 (>60) 10/13/17 10:00 Random Glucose 163 mg/dL (74-106) H 10/13/17 10:00 Calcium 8.4 mg/dL (8.5-10.1) L 10/13/17 10:00 Total Bilirubin 0.7 mg/dL (0.2-1.0) D 10/13/17 10:00 AST 16 U/L (15-37) 10/13/17 10:00 ALT 26 U/L (12-78) 10/13/17 10:00 Alkaline Phosphatase 113 U/L (45-117) 10/13/17 10:00 Total Protein 6.5 g/dl (6.4-8.2) 10/13/17 10:00 Albumin 3.5 g/dl (3.4-5.0) 10/13/17 10:00 CARDIAC ENZYMES Creatine Kinase 53 IU/L (39-308) 10/13/17 00:32 Troponin I < 0.02 ng/ml (0.00-0.05) 10/13/17 10:00 Current Medications Generic Name Dose Route Start Last Admin Trade Name Freq PRN Reason Stop Dose Admin Al Hydroxide/Mg Hydroxide 30 ml 10/13/17 06:50 Mylanta Oral Suspension - PO DAILY PRN INDIGESTION Aspirin 81 mg 10/13/17 10:00 10/13/17 09:36 Asa - PO 81 mg DAILY [facility] Administration Atorvastatin Calcium 40 mg 10/13/17 22:00 Lipitor - PO HS [facility] Carvedilol 12.5 mg 10/13/17 10:00 10/13/17 09:36 Coreg - PO 12.5 mg DAILY FRANCINE Administration Docusate Sodium 200 mg 10/13/17 10:00 10/13/17 09:36 Colace - PO 200 mg DAILY FRANCINE Administration Ergocalciferol 50,000 unit 10/18/17 10:00 Drisdol - PO Q30D [facility] Insulin Aspart 1 vial 10/13/17 07:00 10/13/17 12:10 Novolog Vial Sliding Scale - SQ Not Given ACHS [facility] Protocol Isosorbide Mononitrate 30 mg 10/13/17 10:00 10/13/17 09:36 Imdur - PO 30 mg DAILY FRANCINE Administration Lisinopril 5 mg 10/13/17 10:00 10/13/17 09:36 Prinivil PO 5 mg DAILY FRANCINE Administration Metformin HCl 500 mg 10/13/17 07:00 10/13/17 09:35 Glucophage - PO 500 mg DAILY@0700 [facility] Administration Non-Formulary Medication 50 mg 10/13/17 10:00 Mirabegron [Myrbetriq] PO DAILY [facility] Quetiapine Fumarate 25 mg 10/13/17 22:00 Seroquel - PO HS [facility] Home Medications Medication Instructions Recorded Acetaminophen 325 mg PO PRN 10/12/17 Albuterol Sulfate Inhaler - 2 inh PO Q6H 10/12/17 [Ventolin HFA Inhaler -] Atorvastatin Ca [Lipitor] 40 mg PO HS 10/12/17 Docusate Sodium 200 mg PO DAILY 10/12/17 Mag Hydrox/Aluminum Hyd/Simeth 355 ml PO DAILY 10/12/17 [Antacid Suspension] Metformin HCl 500 mg PO DAILY 10/12/17 Nitroglycerin [Nitrostat] 0.4 mg SL PRN 10/12/17 Polyethylene Glycol 3350 [Glycolax] 119 gm PO DAILY 10/12/17 Potassium Chloride [Klor-Con 10] 10 meq PO DAILY 10/12/17 Quetiapine Fumarate [Seroquel -] 25 mg PO HS 10/12/17 Aspirin 81 mg PO DAILY 10/13/17 Carvedilol [Coreg] 12.5 mg PO DAILY 10/13/17 Cholecalciferol (Vitamin D3) 50,000 unit PO DAILY 10/13/17 [Vitamin D3] Dabigatran Etexilate Mesylate 150 mg PO BID 10/13/17 [Pradaxa -] Isosorbide Dinitrate [Isordil -] 20 mg PO DAILY 10/13/17 Lisinopril 5 mg PO DAILY 10/13/17 Mirabegron [Myrbetriq] 50 mg PO DAILY 10/13/17 PE: comfortable with NAD Chest: CTAbl Heart: S1s2 positive abdomen: soft, NT, positive for BS ext: positive for pulses ASSESSMENT AND PLAN: 86 M With DM, HTN HLD, ? CABG who presents with nausea, vomiting and burning chest pain # Atypical Chest Pain, troponins negative, Mi IS ruled out, seen by trap puller , no further testing is needed. # HTN continue Home meds # HLD continue Statin # Hx. oF Afib continue Pradaxa , continue BB # Dementia continue home meds will discharge the patient back to rehab.
[2017-10-13] MEDS ORDERED: ATORVASTATIN CA 40 MG TABLET (FP) PO SCH (22:00)
[2017-10-13] MEDS ORDERED: QUEtiapine FUMARATE 25 MG TABLET (FP) PO SCH (22:00)
[2017-10-18] MEDS ORDERED: ERGOCALCIFEROL (VITAMIN D2) 50,000 UNIT CAPSULE (FP) PO SCH (10:00)
== END 2017-10-13 18:08 ==
LOC: JER 20:49 → JERBED 10-13 05:09 → UNDOADMOB 10-13 05:13 → J4W 10-13 07:07
PROVIDERS: ADMIT Internal Medicine; ATTEND Internal Medicine
PROC: 3E033GC Introduction of Other Therapeutic Substance into Peripheral Vein, Percutaneous Approach (ICD-10-PCS; principal; 2017-10-13)
PROC: 3E0337Z Introduction of Electrolytic and Water Balance Substance into Peripheral Vein, Percutaneous Approach (ICD-10-PCS; 2017-10-13)
DX: R07.89 Other chest pain (principal); I44.7 Left bundle-branch block, unspecified; R11.2 Nausea with vomiting, unspecified; I10 Essential (primary) hypertension; E78.5 Hyperlipidemia, unspecified; E11.9 Type 2 diabetes mellitus without complications; F03.90 Unspecified dementia, unspecified severity, without behavioral disturbance, psychotic disturbance, mood disturbance, and anxiety; I48.91 Unspecified atrial fibrillation; N32.81 Overactive bladder; Z79.82 Long term (current) use of aspirin; Z79.84 Long term (current) use of oral hypoglycemic drugs; Z95.0 Presence of cardiac pacemaker
CPT/HCPCS: 36415; 71046-TC-FY; 80053; 82550; 82962; 83690; 84484; 85025; 85610; 87804; 93005; 93010; 96361; 96374; 99285-25; G0378

== ENCOUNTER 2017-10-22 18:26 | Emergency (ER) | payer OTHER ==
[2017-10-22 18:50] VITALS: BMI 28.3
--- NOTE | 2017-10-22 19:03 | PDOC ---
History of Present Illness - General Chief Complaint: Cold Symptoms Stated Complaint: FLU SYMPTOM Time Seen by Provider: 10/22/17 18:50 - History of Present Illness Initial Comments: Mr Arnett is an 86yo M with an extensive cardiac hx of CAD, CABG, Afib, PPM, also dementia who presented from [facility]. Patient is a very poor historian, most of the history of was taken from EMS. According to NH, patient was complaining of chest pain, body aches, cough productive with greenish sputum. Vitals were stable en route. Patient is unclear about his symptoms and is unclear about the origin. Pt was admitted before due to nausea and abnormal EKG findings, he was seen by cardiology, no echo was done at that time. PMD - Dr Sharon Bui ([phone]) Past History - Past Medical History Allergies/Adverse Reactions: Allergies Allergy/AdvReac Type Severity Reaction Status Date / Time No Known Allergies Allergy Verified 10/22/17 18:30 Home Medications: Ambulatory Orders Acetaminophen 650 mg PO Q6H PRN 10/22/17 Albuterol Sulfate Inhaler - [Ventolin Hfa Inhaler -] 2 inh PO QID PRN 10/22/17 Aspirin 81 mg PO DAILY 10/22/17 Atorvastatin Ca [Lipitor] 40 mg PO HS 10/22/17 Carvedilol 12.5 mg PO BID 10/22/17 Cholecalciferol (Vitamin D3) [Vitamin D3 -] 50,000 unit PO DAILY 10/22/17 Dabigatran Etexilate Mesylate [Pradaxa -] 150 mg PO BID 10/22/17 Docusate Sodium 100 mg PO HS 10/22/17 Isosorbide Mononitrate [Imdur -] 30 mg PO DAILY 10/22/17 Lisinopril 5 mg PO DAILY 10/22/17 Mag Hydrox/Aluminum Hyd/Simeth [Rulox Suspension] 355 ml PO TID 10/22/17 Metformin HCl 500 mg PO DAILY 10/22/17 Mirabegron [Myrbetriq] 50 mg PO DAILY 10/22/17 Nitroglycerin [Nitrostat] 0.4 mg SL PRN PRN 10/22/17 Polyethylene Glycol 3350 [Glycolax] 119 gm PO DAILY 10/22/17 Potassium Chloride [Klor-Con M10] 10 meq PO DAILY 10/22/17 Quetiapine Fumarate [Seroquel -] 25 mg PO HS 10/22/17 Cardiac Disorders: Yes (afib) COPD: No Dementia: Yes Diabetes: Yes Disorders: Yes (overactive bladder) HTN: Yes Psychiatric Problems: Yes (anxiety.) Other medical history: vitamin d deficiency. - Surgical History Cardiac Surgery: Yes (pacemaker) - Suicide/Smoking/Psychosocial Hx Smoking History: Never smoked Have you smoked in the past 12 months: No Hx Alcohol Use: No Drug/Substance Use Hx: No Substance Use Type: None Review of Systems - Review of Systems Able to Perform ROS?: No (Demented) *Physical Exam - Vital Signs Last Vital Signs Temp Pulse Resp BP Pulse Ox 98.6 F 70 18 131/79 96 10/22/17 18:37 10/22/17 18:37 10/22/17 18:37 10/22/17 18:37 10/22/17 18:37 - Physical Exam Comments: GEN: Awake, alert, only oriented to person HEENT: PERRLA, EOMi, appears euvolemic CV: S1, S2, irregularly irregular rhythm with 2/6 systolic murmur LUNG: bibasilar crackles with expiratory wheezes ABD: Soft, NT, ND MSK: +2 pitting edema bilaterally NEURO: CN 2-12 intact ED Treatment Course - LABORATORY CBC & Chemistry Diagram: 10/22/17 18:52 10/22/17 18:52 - RADIOLOGY Radiology Studies Ordered: Category Date Time Status CHEST X-RAY PORTABLE* [RAD] Stat Radiology 10/22/17 18:49 Ordered Medical Decision Making - Medical Decision Making 86yo M with an extensive cardiac history and dementia who presented from his NH with supposed chest pain, productive cough and body aches. Patient is very unclear about his complaints. I suspect this is a CHF exacerbation. He is not on diuretics and does not have an echocardiogram in the system. DDx include ACS, CHF, Pneumonia, Viral URI, Asthma. -- CBC, CMP -- Cardiac Profile, BNP -- CXR 10/22/17 19:35 EKG shows irregularly irregular rhythm with LBBB (present before) and J points in V1, V2, and V3 (present before). NO new ST or T wave changes. Labs show no leukocytosis. CXR to ak shows increased congestion and more fluid in CVA. Will give Lasix 40mg IVP x1 or equivalent PO 10/22/17 20:[address] [facility], spoke to nursing power reactor supervisor, they are able to have patient see the doctor tomorrow morning, and get cardiology appointment and echocardiogram. Since patient is not in respiratory distress, i am comfortable sending patient home. 10/22/17 21:05 Patient continues to refuse Lasix PO. Unable to give IVP *DC/Admit/Observation/Transfer Diagnosis at time of Disposition: Congestive heart disease Qualifiers: Congestive heart failure type: unspecified Congestive heart failure chronicity : acute Qualified Code(s): I50.9 - Heart failure, unspecified - Discharge Dispostion Disposition: [facility] F[facility]ILITY Condition at time of disposition: Improved Admit: No - Referrals - Patient Instructions Printed Discharge Instructions: DI for Heart Failure Additional Instructions: You were seen in the Emergency room because you were coughing. We did your bloodwork and looked at your chest x-ray. We believe you have congestive heart failure. You are not on any diuretics. We tried to prescribe you Furosemide, but you refused. Because you are not in acute respiratory distress, and you are talking comfortably, not coughing, we are comfortable sending you back to the group home. We called the shelter and spoke to the nursing power reactor supervisor. You will absolutely need to see your physician tomorrow and have a cardiology appointment. You will need an echocardiogram and likely be prescribed diuretics. If you have severe shortness of breath and hypoxia, please return to the Emergency room. - Post Discharge Activity
[2017-10-22 19:19] LABS: HEMATOCRIT 37.4 % (35.4-49); HEMOGLOBIN 12.9 GM/dL (11.7-16.9); MCH 29.4 pg (25.7-33.7); MCHC 34.3 g/dl (32.0-35.9); MEAN CELL VOLUME 85.6 fl (80-96); MEAN PLT VOLUME 7.2 fl (7.5-11.1); PLATELET COUNT 149 K/MM3 (134-434); RBC 4.37 M/mm3 (4.00-5.60); RDW 14.5 % (11.9-15.9); WHITE BLOOD COUNT 5.6 K/mm3 (4.0-10.0)
[2017-10-22 19:45] LABS: PLATELET ESTIMATE ADEQUATE
[2017-10-22 19:49] LABS: ALBUMIN 3.7 g/dl (3.4-5.0); ANION GAP 7 (8-16); BILIRUBIN,TOTAL 0.9 mg/dL (0.2-1.0); BLOOD UREA NITROGEN 14 mg/dL (7-18); CALCIUM 8.2 mg/dL (8.5-10.1); CHLORIDE 100 mmol/L (98-107); CO2 26 mmol/L (21-32); CREATININE 0.9 mg/dL (0.7-1.3); GLUCOSE,RANDOM 165 mg/dL (74-106); POTASSIUM 4.4 mmol/L (3.5-5.1); SGOT/AST 14 U/L (15-37); SGPT/ALT 26 U/L (12-78); SODIUM 133 mmol/L (136-145); TOT PROT 7.1 g/dl (6.4-8.2)
[2017-10-22 19:51] LABS: ALK PHOS 125 U/L (45-117); N-TERMINAL BNP 639.61 pg/ml (5-450)
[2017-10-22] MEDS ORDERED: FUROSEMIDE 40 MG/4 ML INJECTABLE VIAL IVPUSH ONE ×2 (19:58→20:34)
[2017-10-22 20:21] LABS: INR 1.12 (0.82-1.09); PROTHROMBIN TIME (PATIENT) 12.7 SEC (9.98-11.88)
--- NOTE | 2017-10-22 20:44 | PDOC ---
Attending Attestation - Resident Resident Name: Jayshree Dunlapaudrey - ED Attending Attestation I have performed the following: I have examined & evaluated the patient, The case was reviewed & discussed with the resident, I agree w/resident's findings & plan, Exceptions are as noted - HPI HPI: 10/22/17 20:40 86-year-old male from [facility] with cough worsening over the last 1-2 days, no fever. Recent admission for abnormal EKG, had cardiac evaluation with plans for outpatient echocardiogram. Patient has dementia, limited history area - Physicial Exam PE: 10/22/17 20:42 Vital signs within normal limits Well-appearing, bibasilar crackles with wheezing, clears in the upper airways. No tachypnea, no respiratory distress, no accessory muscle use Abdomen benign - Medical Decision Making 10/22/17 20:42 Patient seen and evaluated with the resident. I agree with the overall evaluation, assessment, and management with the following summary of visit: 86-year-old [facility] from [facility] with cough, likely secondary to volume overload. Labs are within normal limits, no fever or leukocytosis, normal creatinine, minimally elevated BNP. Chest x-ray with some early congestion, no focal infiltrate. Discussed with intermediate, they are able to obtain cardiac evaluation and echocardiogram. Will give iv lasix in ED, d/c to cards f/u. Seen with hospitalist also, who agrees with plan. Heart Score/ECG Review #1 Compared to previous ECG there are: No significant change
[2017-10-22] MEDS ORDERED: FUROSEMIDE 40 MG TABLET (FP) PO ONE (20:52)
[2017-10-22] MEDS ORDERED: FUROSEMIDE 40 MG TABLET (FP) ONE (20:54)
[2017-10-22 21:09] VITALS: BP 154/71; PULSE 75; TEMP 98.2
--- NOTE | 2017-10-23 08:40 | EKG ---
Test Reason : Blood Pressure : / mmHG Vent. Rate : 082 BPM Atrial Rate : 082 BPM P-R Int : 000 ms QRS Dur : 130 ms QT Int : 410 ms P-R-T Axes : 000 014 073 degrees QTc Int : 479 ms SINUS RHYTHM WITH SINUS ARRHYTHMIA WITH 1ST DEGREE A-V BLOCK NON-SPECIFIC INTRA-VENTRICULAR CONDUCTION BLOCK CANNOT RULE OUT ANTEROSEPTAL INFARCT , AGE UNDETERMINED ABNORMAL ECG WHEN COMPARED WITH ECG OF 13-OCT-2017 00:19, NO SIGNIFICANT CHANGE WAS FOUND Confirmed by ROCKY DAN, ORQUIDEA ([id number]) on 10/23/2017 8:40:13 AM Referred By: Confirmed By:ORQUIDEA HIDALGO MD
== END 2017-10-22 22:43 ==
LOC: JER 18:26
DX: I50.9 Heart failure, unspecified (principal); I25.10 Atherosclerotic heart disease of native coronary artery without angina pectoris; I10 Essential (primary) hypertension; Z95.0 Presence of cardiac pacemaker; I48.91 Unspecified atrial fibrillation; Z79.01 Long term (current) use of anticoagulants; E11.9 Type 2 diabetes mellitus without complications; Z79.84 Long term (current) use of oral hypoglycemic drugs; F41.9 Anxiety disorder, unspecified; E55.9 Vitamin D deficiency, unspecified
CPT/HCPCS: 36415; 71045-TC; 80053; 82550; 83735; 83880; 84484; 85025; 85610; 93005; 93010; 99282-25

== ENCOUNTER 2017-10-23 07:34 | Observation (INO) | payer OTHER ==
--- NOTE | 2017-10-23 07:50 | PDOC ---
History of Present Illness - General Chief Complaint: Respiratory Stated Complaint: DIFFICULT TO BREATH Time Seen by Provider: 10/23/17 07:47 - History of Present Illness Initial Comments: 86 year old male with PMH of CAD, CABG, Afib, single lead pacemaker, and dementia BIBEMS from [facility] for subjective SOB, wheezing, and weakness. Patient's dementia limits the exam and history taking but he is pleasant and compliant with commands. He was seen at our facility yesterday and at the time was complaining of chest pain, body aches, and cough productive with greenish sputum. He was discharged following one dose of Lasix IV 20 and one dose PO 80 (CXR and BNP corroborated a congestive pathology) and subsequent improvement of respiratory function. [facility] conversation with [facility], she was concerned today for his overall weakness and wheezing with shortness of breath on her exam. The physician did not come in time for an evaluation.He admits to occasional constipation. He denies fevers, chills, nausea vomiting, diarrhea, chest pain, or other sick symptoms. 10/23/17 07:49 Past History - Past Medical History Allergies/Adverse Reactions: Allergies Allergy/AdvReac Type Severity Reaction Status Date / Time No Known Allergies Allergy Verified 10/23/17 07:48 Home Medications: Ambulatory Orders Acetaminophen 650 mg PO Q6H PRN 10/22/17 Albuterol Sulfate Inhaler - [Ventolin Hfa Inhaler -] 2 inh PO QID PRN 10/22/17 Aspirin 81 mg PO DAILY 10/22/17 Atorvastatin Ca [Lipitor] 40 mg PO HS 10/22/17 Carvedilol 12.5 mg PO BID 10/22/17 Cholecalciferol (Vitamin D3) [Vitamin D3 -] 50,000 unit PO MONTHLY 10/22/17 Dabigatran Etexilate Mesylate [Pradaxa -] 150 mg PO BID 10/22/17 Docusate Sodium 100 mg PO HS 10/22/17 Isosorbide Mononitrate [Imdur -] 30 mg PO DAILY 10/22/17 Lisinopril 5 mg PO DAILY 10/22/17 Metformin HCl 500 mg PO DAILY 10/22/17 Mirabegron [Myrbetriq] 50 mg PO DAILY 10/22/17 Nitroglycerin [Nitrostat] 0.4 mg SL PRN PRN 10/22/17 Polyethylene Glycol 3350 [Glycolax] 1 scoop PO DAILY 10/22/17 Potassium Chloride [Klor-Con M10] 10 meq PO DAILY 10/22/17 Quetiapine Fumarate [Seroquel -] 12.5 mg PO HS 10/22/17 Cardiac Disorders: Yes (afib) COPD: No Dementia: Yes Diabetes: Yes Disorders: Yes (overactive bladder) HTN: Yes Hypercholesterolemia: Yes Psychiatric Problems: Yes (anxiety,alzheimer's) - Surgical History Cardiac Surgery: Yes (pacemaker) - Suicide/Smoking/Psychosocial Hx Smoking History: Never smoked Have you smoked in the past 12 months: No Information on smoking cessation initiated: No Hx Alcohol Use: No Drug/Substance Use Hx: No Substance Use Type: None Review of Systems - Review of Systems Constitutional: Yes: Weakness. No: Chills, Diaphoresis, Fever HEENTM: No: Blurred Vision Respiratory: Yes: Cough, Productive cough Cardiac (ROS): No: Chest Pain, Lightheadedness, Palpitations ABD/GI: No: Diarrhea, Nausea, Vomiting : No: Dysuria, Discharge Musculoskeletal: No: Back Pain, Joint Pain Integumentary: Yes: Dryness, Lesions. No: Bruising Neurological: Yes: Weakness. No: Headache, Numbness, Paresthesia *Physical Exam - Vital Signs Last Vital Signs Temp Pulse Resp BP Pulse Ox 99.6 F 79 19 151/80 98 10/23/17 07:44 10/23/17 07:44 10/23/17 07:44 10/23/17 07:44 10/23/17 07:44 - Physical Exam General Appearance: Yes: Nourished, Appropriately Dressed. No: Apparent Distress HEENT: positive: EOMI, VIC, Normal ENT Inspection, Normal Voice Neck: positive: Trachea midline, Normal Thyroid, Supple. negative: Tender, Rigid Respiratory/Chest: negative: Chest Tender, Lungs Clear (Rhonchi in bilateral lung bases), Normal Breath Sounds, Respiratory Distress, Accessory Muscle Use Cardiovascular: positive: Regular Rhythm, Regular Rate, Edema (Bilateral trace pitting edema) Gastrointestinal/Abdominal: positive: Normal Bowel Sounds, Flat, Soft. negative : Tender Musculoskeletal: positive: Normal Inspection. negative: Muscle Spasm Extremity: positive: Normal Capillary Refill, Normal Range of Motion. negative : Normal Inspection (Seems generally weak), Tender Integumentary: positive: Normal Color Neurologic: positive: Alert, Normal Mood/Affect, Normal Response. negative: Fully Oriented (AOX1) ED Treatment Course - LABORATORY CBC & Chemistry Diagram: 10/23/17 07:57 10/23/17 07:57 Medical Decision Making - Medical Decision Making 86 year old male with multiple cardiac risk factors and recent presentation for SOB that improved with lasix on previou admission presenting with SOB and bilateral lower lung field wheezing. Differential includes acute cardiac event , CHF, or pna. Unlikely PE, pnuemothorax, or dissection because of stable vitals and lack of chest pain. This is most concerning for CHF given previous cardiac history along with bilateral wheezing or rhonchi, although, bilateral infiltrates is not impossible, it is improbable. EKG demonstrated old anteroseptal st wave changes/ early repol but no pacing spikes. 10/23/17 08:27 Still demonstrating wheezes with subjective SOB (intermittently admitting to this because of his dementia). More lieky CHF with labs demonstrating increasing BNP. Given one dose of Lasix IV 40 and will admit patient for further cardiac workup with echo. Hospitalist were microblogged. 10/23/17 10:[address] De La Cruz and the patient will be admitted tele obs under Dr. Murillo with further cardiac workup and possible echo. 10/23/17 10:49 *DC/Admit/Observation/Transfer Diagnosis at time of Disposition: CHF (congestive heart failure) Qualifiers: Congestive heart failure type: unspecified Congestive heart failure chronicity : acute Qualified Code(s): I50.9 - Heart failure, unspecified - Discharge Dispostion Admit: Yes - Referrals Referrals: Sharon Bui MD [Primary Care Provider] - - Patient Instructions - Post Discharge Activity
[2017-10-23 08:28] LABS: BASO % 0.5 % (0-2.0); EOS % 2.7 % (0-4.5); HEMATOCRIT 40.4 % (35.4-49); HEMOGLOBIN 13.8 GM/dL (11.7-16.9); LYMPH % 13.3 % (8-40); MCHC 34.1 g/dl (32.0-35.9); MEAN CELL VOLUME 85.2 fl (80-96); MEAN PLT VOLUME 7.5 fl (7.5-11.1); MONO % 19.2 % (3.8-10.2); NEUT % 64.3 % (42.8-82.8); PLATELET COUNT 147 K/MM3 (134-434); RBC 4.74 M/mm3 (4.00-5.60); RDW 14.6 % (11.9-15.9); WHITE BLOOD COUNT 4.9 K/mm3 (4.0-10.0)
[2017-10-23] MEDS ORDERED: ALBUTEROL SO4 2.5/IPRATROPIUM 0.5 INH SOL 3 ML VIAL.NEB. NEB ONE (08:33)
[2017-10-23] MEDS ORDERED: methylPREDNISolone NA SUCC 125 MG/2 ML VIAL IVPB ONE (08:33)
[2017-10-23] MEDS ORDERED: methylPREDNISolone NA SUCC 125 MG/2 ML VIAL ONE (08:36)
[2017-10-23 08:53] LABS: ALBUMIN 3.8 g/dl (3.4-5.0); ANION GAP 8 (8-16); BLOOD UREA NITROGEN 11 mg/dL (7-18); CALCIUM 8.6 mg/dL (8.5-10.1); CHLORIDE 101 mmol/L (98-107); CO2 27 mmol/L (21-32); CREATININE 0.8 mg/dL (0.7-1.3); GLUCOSE,RANDOM 143 mg/dL (74-106); PHOSPHOROUS 2.9 mg/dL (2.5-4.9); POTASSIUM 4.1 mmol/L (3.5-5.1); SGOT/AST 16 U/L (15-37); SGPT/ALT 27 U/L (12-78); SODIUM 136 mmol/L (136-145)
[2017-10-23 08:57] LABS: ALK PHOS 135 U/L (45-117); BILIRUBIN,TOTAL 1.1 mg/dL (0.2-1.0); N-TERMINAL BNP 872.85 pg/ml (5-450); TOT PROT 7.4 g/dl (6.4-8.2)
--- NOTE | 2017-10-23 09:02 | PDOC ---
Attending Attestation - Resident Resident Name: Juliano Blank - ED Attending Attestation I have performed the following: I have examined & evaluated the patient, The case was reviewed & discussed with the resident, I agree w/resident's findings & plan, Exceptions are as noted - HPI HPI: 10/23/17 09:02 86 M with h/o CAD, CABG, Afib, PPM, and dementia [place] with cough and SOB. Pt is unable to recall why he was sent to the hospital. However, per NH staff, pt had an episode of SOB and wheezing this morning. Pt endorses some intermittent chest pain but denies any currently. He also endorses dry cough but cannot remember how long he has had it. Denies F/C. - Physicial Exam PE: 10/23/17 09:03 "GENERAL: Awake, alert, and fully oriented, in no acute distress HEAD: No signs of trauma EYES: PERRLA, EOMI, sclera anicteric, conjunctiva clear ENT: Auricles normal inspection, hearing grossly normal, nares patent, oropharynx clear without exudates. Moist mucosa NECK: Nontender, no stepoffs, Normal ROM, supple, no lymphadenopathy, JVD, or masses LUNGS: bilateral expiratory wheezes with mild rhonchi HEART: Regular rate and rhythm, normal S1 and S2, no murmurs, rubs or gallops ABDOMEN: Soft, nontender, normoactive bowel sounds. No guarding, no rebound. No masses EXTREMITIES: +1 BLE edema, No clubbing or cyanosis. No cords, erythema, or tenderness NEUROLOGICAL: Cranial nerves II through XII intact. 5/5 strength and sensation in all extremities, Normal speech, normal gait SKIN: Warm, Dry, normal turgor, no rashes or lesions noted. - Medical Decision Making 10/23/17 09:06 86 M with cough, SOB, intermittent chest pain. Pt with wheezing on exam with rhonchi, concerning for asthma/COPD exacerbation. However, pt with no h/o reactive airway disease, so his lung exam may reflect cardiac wheeze. Pt also with mild pitting edema of lower extremities, suggestive of CHF. Also consider infectious process like PNA/URI. - Labs, trop, BNP - CXR - trial of Nebs, steroids - Lasix 40mg IV Pt admitted to hospitalist.
[2017-10-23] MEDS ORDERED: ASPIRIN 81 MG CHEWABLE TABLETS PO SCH (10:00)
[2017-10-23] MEDS ORDERED: FUROSEMIDE 40 MG/4 ML INJECTABLE VIAL IVPUSH ONE ×2 (10:02→16:43)
[2017-10-23] MEDS ORDERED: FUROSEMIDE 40 MG/4 ML INJECTABLE VIAL ONE (10:38)
[2017-10-23] MEDS ORDERED: ALBUTEROL SO4 0.083% IH SOL 2.5 MG/3 ML VIAL.NEB. NEB PRN ×2 (12:05→18:29)
[2017-10-23] MEDS ORDERED: ACETAMINOPHEN 325 MG TABLET (FP) PO PRN ×2 (12:10→18:29)
[2017-10-23] MEDS ORDERED: NITROGLYCERIN SUBLINGUAL 1/150 0.4 MG TAB SL PRN ×2 (12:10→18:29)
[2017-10-23] MEDS ORDERED: ISOSORBIDE MONONITRATE 30 MG TAB.SR.24H (FP) PO SCH (12:15)
[2017-10-23] MEDS ORDERED: LISINOPRIL 5 MG TABLET (FP) PO SCH (12:15)
[2017-10-23] MEDS ORDERED: ISOSORBIDE MONONITRATE 60 MG TAB.SR.24H (FP) PO ONE (12:21)
--- NOTE | 2017-10-23 12:21 | HP ---
CHIEF COMPLAINT: subjective sob PCP: Dr Sharon Bui ([phone]) HISTORY OF PRESENT ILLNESS: This is an 86yo M with PMH of CAD, CABG, single lead pace maker, Afib, PPM and dementia, who presented from [facility] due to subjective sob. He was in ED yesterday due to Flu like symptoms, including chest pain, body aches, cough productive with greenish sputum. In ED he was treated for slight volume overload with IV lasix 40 and dcd, however presents today to to unimproved sob. On presentation patient is afebrile and hemodynamically stable, NAD, satting 96% on RA with resp rate 18. Patient is a poor historian and information was obtained from [place] records. He denies pain, n/v, f/c. ER course was notable for: (1) labs (2) cxr: unremarkable (3) medrol 125, nebs, lasix 40 IV Recent Travel: none PAST MEDICAL HISTORY: as above PAST SURGICAL HISTORY: as above Social History: [facility] resident Smoking: unknown Alcohol: unknown Drugs: unknown Family History: unknown Allergies No Known Allergies Allergy (Verified 10/23/17 07:48) HOME MEDICATIONS: Home Medications Medication Instructions Recorded Acetaminophen 650 mg PO Q6H PRN 10/22/17 Albuterol Sulfate Inhaler - 2 inh PO QID PRN 10/22/17 [Ventolin Hfa Inhaler -] Aspirin 81 mg PO DAILY 10/22/17 Atorvastatin Ca [Lipitor] 40 mg PO HS 10/22/17 Carvedilol 12.5 mg PO BID 10/22/17 Cholecalciferol (Vitamin D3) 50,000 unit PO MONTHLY 10/22/17 [Vitamin D3 -] Dabigatran Etexilate Mesylate 150 mg PO BID 10/22/17 [Pradaxa -] Docusate Sodium 100 mg PO HS 10/22/17 Isosorbide Mononitrate [Imdur -] 30 mg PO DAILY 10/22/17 Lisinopril 5 mg PO DAILY 10/22/17 Metformin HCl 500 mg PO DAILY 10/22/17 Mirabegron [Myrbetriq] 50 mg PO DAILY 10/22/17 Nitroglycerin [Nitrostat] 0.4 mg SL PRN PRN 10/22/17 Polyethylene Glycol 3350 [Glycolax] 1 scoop PO DAILY 10/22/17 Potassium Chloride [Klor-Con M10] 10 meq PO DAILY 10/22/17 Quetiapine Fumarate [Seroquel -] 12.5 mg PO HS 10/22/17 REVIEW OF SYSTEMS unable to obtain PHYSICAL EXAMINATION Vital Signs - 24 hr 10/23/17 10/23/17 07:44 08:54 Temperature 99.6 F Pulse Rate 79 Respiratory 19 Rate Blood Pressure 151/80 O2 Sat by Pulse 98 98 Oximetry (%) GENERAL: Awake, not oriented, in no acute distress. HEAD: Normal with no signs of trauma. EYES: Pupils equal, round and reactive to light, extraocular movements intact, sclera anicteric, conjunctiva clear. No lid lag. EARS, NOSE, THROAT: Moist mucous membranes. NECK: supple without JVD, no hepatojugular reflex LUNGS: diffuse expiratory wheezes b/l, no ronchi HEART: Regular rate and rhythm, normal S1 and S2 ABDOMEN: Soft, nontender, not distended, normoactive bowel sounds, no guarding, no rebound, no masses. MUSCULOSKELETAL: No CVA tenderness. UPPER EXTREMITIES: 2+ pulses, warm, well-perfused. No cyanosis. No clubbing. No peripheral edema. LOWER EXTREMITIES: 1+ pulses, warm, well-perfused. No calf tenderness. 1+ peripheral edema at ankles b/l. NEUROLOGICAL: Cranial nerves II-XII grossly intact. PSYCHIATRIC: Appropriate mood and affect. SKIN: Warm, dry Laboratory Results - last 24 hr 10/23/17 10/23/17 07:57 07:57 WBC 4.9 RBC 4.74 Hgb 13.8 Hct 40.4 MCV 85.2 MCH 29.0 MCHC 34.1 RDW 14.6 Plt Count 147 MPV 7.5 Neutrophils % 64.3 Lymphocytes % 13.3 Monocytes % 19.2 H D Eosinophils % 2.7 Basophils % 0.5 Sodium 136 Potassium 4.1 Chloride 101 Carbon Dioxide 27 Anion Gap 8 BUN 11 D Creatinine 0.8 Creat Clearance w eGFR > 60 Random Glucose 143 H Calcium 8.6 Phosphorus 2.9 Magnesium 2.0 Total Bilirubin 1.1 H D AST 16 ALT 27 Alkaline Phosphatase 135 H Creatine Kinase 73 Troponin I 0.02 B-Natriuretic Peptide 872.85 H Total Protein 7.4 Albumin 3.8 ASSESSMENT/PLAN: This is an 86yo M with PMH of CAD, CABG, single lead pace maker, Afib, PPM and dementia, who presented from [facility] due to subjective sob. Shortness of breath -adequate O2 sat, not in respiratory distress on exam -Elevated bnp 800 despite getting 40 IV lasix yesterday, r/o CHF -given another 40 IV lasix today -cardiac monitoring, TTE -flu swab CAD -resume coreg 12.5 bid, lisisnopril 5 d, imdur 30 d -ASA A fib -resume pradaxa NIDDM -ISS, BGM ACHS HLD -resume lipitor Dementia -seroquel FEN no ivf monitor k, mag, phos na restricted soft diet Pradaxa, diet Dispo: obs tele Problem List - Problem (1) HTN (hypertension) Code(s): I10 - ESSENTIAL (PRIMARY) HYPERTENSION (2) CAD (coronary artery disease) Code(s): I25.10 - ATHSCL HEART DISEASE OF [place] CORONARY ARTERY W/O ANG PCTRS (3) Afib Code(s): I48.91 - UNSPECIFIED ATRIAL FIBRILLATION (4) Congestive heart disease Code(s): I50.9 - HEART FAILURE, UNSPECIFIED Qualifiers: Congestive heart failure type: unspecified Congestive heart failure chronicity: acute Qualified Code(s): I50.9 - Heart failure, unspecified (5) DM (diabetes mellitus) Code(s): E11.9 - TYPE 2 DIABETES MELLITUS WITHOUT COMPLICATIONS (6) Dementia Code(s): F03.90 - UNSPECIFIED DEMENTIA WITHOUT BEHAVIORAL DISTURBANCE Visit type - Emergency Visit Emergency Visit: Yes ED Registration Date: 10/23/17 Care time: The patient presented to the Emergency Department on the above date and was hospitalized for further evaluation of their emergent condition. - New Patient This patient is new to me today: Yes Date on this admission: 10/23/17 - Critical Care Critical Care patient: No
--- NOTE | 2017-10-23 16:27 | PN ---
Teaching Attending Note Name of Resident: Mimi De La Cruz ATTENDING PHYSICIAN STATEMENT I saw and evaluated the patient. I reviewed the resident's note and discussed the case with the resident. I agree with the resident's findings and plan as documented. HPI per chart SUBJECTIVE:86yo M with PMH CAD, HTN, afib on pradaxa, dyslipidemia, s/p PPM was sent to the ER after noted to be tachypnic at the SNF. he was seenin the ER yesterday and noted to have CP, body aches and cough with green sputum. Attempted to give lasix in the ER yesterday however pt refused. Today he was treated in the ER with lasix 40mg IV x1 and medrol 125mcg. currently pt has no complaints and asking why he is in the hospital. deneis CP, SOB, fever, chills, cough OBJECTIVE: Last Vital Signs Temp Pulse Resp BP Pulse Ox 97.9 F 82 17 141/72 96 10/23/17 15:22 10/23/17 15:22 10/23/17 15:22 10/23/17 15:22 10/23/17 16:27 General NAD, A&O x0 CV S1 S2 RRR no murmur/rub/gallop midling scar+PPM, no chest wall tenderness Lungs CTA B/L no wheezing/rales/rhonchi Abdomen soft NT/ND obese Extremities 1+ pitting edema B/L LE ASSESSMENT AND PLAN: 86yo M with PMH CAD, HTN, afib on pradaxa, dyslipidemia, s/p PPM was sent to the ER after noted to be tachypnic at the [facility] 1. SOB- possible volume overload. suspect CHF with cardiac hx and PPM of unknown placement. responded well to lasix and medrol. CXR is now clear however continues to have pedal edema. will give additonal Lasix 40mg IVP x1. check echo in the AM. 2. afib- currently paced. cont coreg and pradaxa 3. CAD- on asa, imdur, acei, statin 4. HTN- above goal. giving lasix. will monitor for now. titrate medications as needed 5. Urinary incontinence- mybertriq 6. DVT ppx- EAM
[2017-10-23] MEDS ORDERED: INSULIN SLIDING SCALE (NOVOLOG) 1 VIAL SQ SCH (16:30)
[2017-10-23 16:48] VITALS: BMI 26.1
[2017-10-23] MEDS: CARVEDILOL 12.5 MG TABLET (FP) PO SCH (21:01)
[2017-10-23] MEDS: INSULIN SLIDING SCALE (NOVOLOG) 1 VIAL SQ SCH (21:09)
[2017-10-23] MEDS ORDERED: DABIGATRAN ETEXILATE MESYLATE 150 MG CAPSULE PO SCH (22:00)
[2017-10-23] MEDS ORDERED: CARVEDILOL 12.5 MG TABLET (FP) PO SCH (22:00)
[2017-10-23] MEDS ORDERED: QUEtiapine FUMARATE 25 MG TABLET (FP) PO SCH ×2 (22:00)
[2017-10-23] MEDS ORDERED: ATORVASTATIN CA 40 MG TABLET (FP) PO SCH ×2 (22:00)
[2017-10-23] MEDS ORDERED: DOCUSATE SODIUM 100 MG CAPSULE (FP) PO SCH ×2 (22:00)
[2017-10-23] MEDS: DABIGATRAN ETEXILATE MESYLATE 150 MG CAPSULE PO SCH (22:14)
[2017-10-24] MEDS: INSULIN SLIDING SCALE (NOVOLOG) 1 VIAL SQ SCH ×2 (06:24→11:15)
[2017-10-24 08:45] LABS: ANION GAP 11 (8-16); BLOOD UREA NITROGEN 30 mg/dL (7-18); CALCIUM 8.5 mg/dL (8.5-10.1); CHLORIDE 100 mmol/L (98-107); CO2 26 mmol/L (21-32); GLUCOSE,RANDOM 175 mg/dL (74-106); MAGNESIUM 2.1 mg/dL (1.8-2.4); POTASSIUM 3.4 mmol/L (3.5-5.1); SODIUM 137 mmol/L (136-145)
[2017-10-24 08:46] LABS: CREATININE 1.1 mg/dL (0.7-1.3)
[2017-10-24] MEDS ORDERED: ASPIRIN 81 MG CHEWABLE TABLETS PO SCH (10:00)
[2017-10-24] MEDS ORDERED: LISINOPRIL 5 MG TABLET (FP) PO SCH (10:00)
[2017-10-24] MEDS ORDERED: POLYETHYLENE GLYCOL 3350 119 GM BTL PO SCH ×2 (10:00)
[2017-10-24] MEDS ORDERED: ISOSORBIDE MONONITRATE 30 MG TAB.SR.24H (FP) PO SCH (10:00)
[2017-10-24] MEDS: DABIGATRAN ETEXILATE MESYLATE 150 MG CAPSULE PO SCH (11:07)
[2017-10-24] MEDS: CARVEDILOL 12.5 MG TABLET (FP) PO SCH (11:07)
--- NOTE | 2017-10-24 12:24 | PN ---
Teaching Attending Note Name of Resident: Mary Rios ATTENDING PHYSICIAN STATEMENT I saw and evaluated the patient. I reviewed the resident's note and discussed the case with the resident. I agree with the resident's findings and plan as documented. SUBJECTIVE:asymptomatic. denies Cp, SOB, fever, chills, cough, N/V/C/D OBJECTIVE: Last Vital Signs Temp Pulse Resp BP Pulse Ox 97.5 F L 74 18 116/56 96 10/24/17 10:00 10/24/17 10:00 10/24/17 10:00 10/24/17 10:00 10/24/17 05:00 General NAD, A&O x0 CV S1 S2 RRR no murmur/rub/gallop midling scar+PPM, no chest wall tenderness Lungs CTA B/L no wheezing/rales/rhonchi Abdomen soft NT/ND obese Extremities no pitting edema ASSESSMENT AND PLAN: 86yo M with PMH CAD, HTN, afib on pradaxa, dyslipidemia, s/p PPM was sent to the ER after noted to be tachypnic at the SNF 1. Tachypnea- possible volume overload. suspect CHF with cardiac hx and PPM of unknown placement. responded well to lasix and medrol. CXR is now clear and physical exam does not show any signs of volume overload. will hold lasix for now. f/u echo. if show signs of CHF will consider starting on oral lasix on discharge. 2. Hyokalemia- Kcl po 3. afib- currently paced. cont coreg and pradaxa 4. CAD- on asa, imdur, acei, statin 5. HTN-improved. cont home management 6. Urinary incontinence- mybertriq 7. DVT ppx- EAM 8. d/c home planning pending echo report.
[2017-10-24] MEDS ORDERED: POTASSIUM CHLORIDE ORAL LIQUID 20 MEQ/15 ML PO ONE (13:00)
[2017-10-24 15:23] VITALS: BP 115/40; PULSE 81; TEMP 97.9
--- NOTE | 2017-10-24 17:01 | DS ---
Physical Exam: SUBJECTIVE: Patient seen and examined. Pt is comfortable, denies pain. Asymptomatic. Pt denies chest pain, sob, fever, chills. OBJECTIVE: Vital Signs Period Temp Pulse Resp BP Sys/Higgins Pulse Ox Last 24 Hr 97.4 F-99.2 F 74-92 18-20 92-126/40-62 95-96 PHYSICAL EXAM GENERAL: The patient is awake, alert, and fully oriented, in no acute distress. LUNGS: Breath sounds equal, clear to auscultation bilaterally, no wheezes, no crackles, no accessory muscle use. HEART: Regular rate and rhythm, S1, S2 without murmur, rub or gallop. ABDOMEN: Soft, nontender, nondistended, no guarding. EXTREMITIES: Warm, well-perfused, no edema. SKIN: Warm, dry, normal turgor, no rashes or lesions noted. LABS Laboratory Results - last 24 hr 10/23/17 10/23/17 10/24/17 17:15 21:08 05:31 Sodium Potassium Chloride Carbon Dioxide Anion Gap BUN Creatinine POC Glucometer 234 264 164 Random Glucose Calcium Magnesium 10/24/17 10/24/17 07:55 11:10 Sodium 137 Potassium 3.4 L Chloride 100 Carbon Dioxide 26 Anion Gap 11 BUN 30 H D Creatinine 1.1 D POC Glucometer 270 Random Glucose 175 H D Calcium 8.5 Magnesium 2.1 HOSPITAL COURSE: Date of Admission:10/23/17 Date of Discharge: 10/24/17 86M with PMH of CAD, CABG, htn, hld, afib on Pradaxa, s/p single lead PPM, presented from SNF for tachypnea. Responded well to Lasix, pt discharged on Lasix. 10/23/17 CXR -> no acute pathology. No pneumonia. 10/24/17 CXR -> no acute pathology. 10/25/17 Echo -> LVEF 55-60%. Mild mitral regurg, mild-moderate tricuspid regurg , mild pulmonary htn, trace pulmonary valve regurg. Pt walked 20 ft with PT. Pt stable for discharge back to SNF. Minutes to complete discharge: 35 Discharge Summary Reason For Visit: CONGESTIVE HEART FAILURE Current Active Problems Congestive heart disease (Acute) Afib (Chronic) CAD (coronary artery disease) (Chronic) HTN (hypertension) (Chronic) Condition: Improved - Instructions Diet, Activity, Other Instructions: You were treated for increased rate of breathing and found to have a weak heart. You have a new medication of Lasix 20mg once daily. Please continue taking your other home medications as prescribed. Continue to eat a low sodium diet. Resume physical activity as tolerated. Follow-ups: - Schedule an appointment with your PCP within 1 week, You should have your kidney function and electrolytes periodically monitored while on this new medication. Please return to the hospital immediately if you experience persistent or increased fast breathing rate, difficulty breathing, chest pain, or for any medical emergency. Referrals: Sharon Bui MD [Primary Care Provider] - 1 Week Disposition: [facility] - Home Medications Comprehensive Discharge Medication List: Ambulatory Orders Acetaminophen 650 mg PO Q6H PRN 10/22/17 Albuterol Sulfate Inhaler - [Ventolin HFA Inhaler -] 2 inh PO QID PRN 10/22/17 Aspirin 81 mg PO DAILY 10/22/17 Carvedilol 12.5 mg PO BID 10/22/17 Cholecalciferol (Vitamin D3) [Vitamin D -] 50,000 unit PO MONTHLY 10/22/17 Dabigatran Etexilate Mesylate [Pradaxa -] 150 mg PO BID 10/22/17 Isosorbide Mononitrate [Imdur -] 30 mg PO DAILY 10/22/17 Lisinopril 5 mg PO DAILY 10/22/17 Metformin HCl 500 mg PO DAILY 10/22/17 Mirabegron [Myrbetriq] 50 mg PO DAILY 10/22/17 Nitroglycerin [Nitrostat] 0.4 mg SL PRN PRN 10/22/17 Polyethylene Glycol 3350 [Glycolax] 1 scoop PO DAILY 10/22/17 Potassium Chloride [Klor-Con M10] 10 meq PO DAILY 10/22/17 Quetiapine Fumarate [Seroquel -] 12.5 mg PO HS 10/22/17 Atorvastatin Ca [Lipitor] 40 mg PO HS 10/23/17 Docusate Sodium [Colace -] 200 mg PO HS 10/23/17 Mag Hydrox/Aluminum Hyd/Simeth [Rulox Suspension] 10 ml PO TID 10/23/17 Mag Hydrox/Aluminum Hyd/Simeth [Rulox Suspension] 30 ml PO TIDCM 10/23/17 Furosemide [Lasix -] 20 mg PO DAILY #30 tablet 10/24/17 This patient is new to me today: Yes Date on this admission: 10/24/17 Emergency Visit: Yes ED Registration Date: 10/23/17 Care time: The patient presented to the Emergency Department on the above date and was hospitalized for further evaluation of their emergent condition. Critical Care patient: No - Discharge Referral Referred to [facility] Med P.C.: No
--- NOTE | 2017-10-24 23:17 | EKG ---
Test Reason : Blood Pressure : / mmHG Vent. Rate : 073 BPM Atrial Rate : 073 BPM P-R Int : 000 ms QRS Dur : 144 ms QT Int : 438 ms P-R-T Axes : 266 -30 115 degrees QTc Int : 482 ms UNDETERMINED RHYTHM , POSSIBLE ECTOPIC ATRIAL RHYTHM LEFT AXIS DEVIATION LEFT BUNDLE BRANCH BLOCK ABNORMAL ECG WHEN COMPARED WITH ECG OF 23-OCT-2017 08:23, ECTOPIC ATRIAL RHYTHM IS NOTED Confirmed by SONAL DAN, ALVINA ([id number]) on 10/24/2017 11:16:54 PM Referred By: Confirmed By:ALVINA PRUITT MD
--- NOTE | 2017-10-24 23:31 | EKG ---
Test Reason : Blood Pressure : / mmHG Vent. Rate : 076 BPM Atrial Rate : 078 BPM P-R Int : 000 ms QRS Dur : 136 ms QT Int : 408 ms P-R-T Axes : 000 041 118 degrees QTc Int : 459 ms atrial-paced complexes LEFT BUNDLE BRANCH BLOCK ABNORMAL ECG WHEN COMPARED WITH ECG OF 23-OCT-2017 07:49, LIKELY NO SIGNIFICANT CHANGES Confirmed by ALVINA PRUITT MD ([id number]) on 10/24/2017 11:31:26 PM Referred By: Confirmed By:ALVINA PRUITT MD
--- NOTE | 2017-10-24 23:32 | EKG ---
Test Reason : Blood Pressure : / mmHG Vent. Rate : 074 BPM Atrial Rate : 076 BPM P-R Int : 000 ms QRS Dur : 134 ms QT Int : 414 ms P-R-T Axes : 000 033 082 degrees QTc Int : 459 ms WIDE QRS RHYTHM WITH OCCASIONAL ventricular-paced complexes NON-SPECIFIC INTRA-VENTRICULAR CONDUCTION BLOCK NONSPECIFIC T WAVE ABNORMALITY ABNORMAL ECG WHEN COMPARED WITH ECG OF 22-OCT-2017 18:39, ELECTRONIC VENTRICULAR PACEMAKER HAS REPLACED SINUS RHYTHM Confirmed by ALVINA PRUITT MD ([id number]) on 10/24/2017 11:32:02 PM Referred By: Confirmed By:ALVINA PRUITT MD
== END 2017-10-24 17:58 ==
LOC: JER 07:34 → JERBED 11:54 → J8W 16:20 → J4W 21:20
PROVIDERS: ADMIT Internal Medicine; ATTEND Internal Medicine
PROC: 3E0333Z Introduction of Anti-inflammatory into Peripheral Vein, Percutaneous Approach (ICD-10-PCS; principal; 2017-10-23)
PROC: 3E033GC Introduction of Other Therapeutic Substance into Peripheral Vein, Percutaneous Approach (ICD-10-PCS; 2017-10-23)
PROC: 3E013VG Introduction of Insulin into Subcutaneous Tissue, Percutaneous Approach (ICD-10-PCS; 2017-10-23)
PROC: 3E0F7GC Introduction of Other Therapeutic Substance into Respiratory Tract, Via Natural or Artificial Opening (ICD-10-PCS; 2017-10-23)
DX: I50.9 Heart failure, unspecified (principal); R06.82 Tachypnea, not elsewhere classified; I10 Essential (primary) hypertension; I25.10 Atherosclerotic heart disease of native coronary artery without angina pectoris; I48.91 Unspecified atrial fibrillation; G30.9 Alzheimer's disease, unspecified; F02.80 Dementia in other diseases classified elsewhere, unspecified severity, without behavioral disturbance, psychotic disturbance, mood disturbance, and anxiety; E11.9 Type 2 diabetes mellitus without complications; E78.5 Hyperlipidemia, unspecified; E87.6 Hypokalemia; F41.9 Anxiety disorder, unspecified; R60.0 Localized edema; R32 Unspecified urinary incontinence; Z95.0 Presence of cardiac pacemaker; Z95.1 Presence of aortocoronary bypass graft; Z79.01 Long term (current) use of anticoagulants; Z79.82 Long term (current) use of aspirin; Z79.84 Long term (current) use of oral hypoglycemic drugs
CPT/HCPCS: 36415; 71045-TC; 71046-TC-FY; 80048; 80053; 82550; 82962; 83735; 83880; 84100; 84484; 85025; 93005; 93010; 93306-TC; 94640; 96372; 96374; 96375; 96376; 97116-GP; 97161-GP; 99285-25; G0378

== ENCOUNTER 2017-11-03 16:32 | Inpatient (IN) | payer OTHER ==
--- NOTE | 2017-11-03 18:24 | PDOC ---
History of Present Illness - General Chief Complaint: Respiratory Stated Complaint: SOB Time Seen by Provider: 11/03/17 18:00 - History of Present Illness Initial Comments: 11/03/17 18:24 Mr. Arnett is an 87 yo male w/ pmh of CAD, afib, CABG, pacemaker, and dementia BIBA from [facility] for evaluation of 2 week history of wet cough productive of yellow/green sputum. Patient currently unable to provide other history. Allergies: NKDA Past History - Past Medical History Allergies/Adverse Reactions: Allergies Allergy/AdvReac Type Severity Reaction Status Date / Time No Known Allergies Allergy Verified 11/03/17 16:55 Home Medications: Ambulatory Orders Acetaminophen 650 mg PO Q6H PRN 10/22/17 Albuterol Sulfate Inhaler - [Ventolin HFA Inhaler -] 2 inh PO QID PRN 10/22/17 Aspirin 81 mg PO DAILY 10/22/17 Carvedilol 12.5 mg PO BID 10/22/17 Cholecalciferol (Vitamin D3) [Vitamin D -] 50,000 unit PO MONTHLY 10/22/17 Dabigatran Etexilate Mesylate [Pradaxa -] 150 mg PO BID 10/22/17 Isosorbide Mononitrate [Imdur -] 30 mg PO DAILY 10/22/17 Lisinopril 5 mg PO DAILY 10/22/17 Metformin HCl 500 mg PO DAILY 10/22/17 Mirabegron [Myrbetriq] 50 mg PO DAILY 10/22/17 Nitroglycerin [Nitrostat] 0.4 mg SL PRN PRN 10/22/17 Polyethylene Glycol 3350 [Glycolax] 1 scoop PO DAILY 10/22/17 Potassium Chloride [Klor-Con M10] 10 meq PO DAILY 10/22/17 Quetiapine Fumarate [Seroquel -] 12.5 mg PO HS 10/22/17 Atorvastatin Ca [Lipitor] 40 mg PO HS 10/23/17 Docusate Sodium [Colace -] 200 mg PO HS 10/23/17 Mag Hydrox/Aluminum Hyd/Simeth [Rulox Suspension] 10 ml PO TID 10/23/17 Furosemide [Lasix -] 20 mg PO DAILY #30 tablet 10/24/17 Cardiac Disorders: Yes (afib) COPD: No Dementia: Yes Diabetes: Yes Disorders: Yes (overactive bladder) HTN: Yes Hypercholesterolemia: Yes Psychiatric Problems: Yes (ANXIETY) - Surgical History Cardiac Surgery: Yes (pacemaker) - Suicide/Smoking/Psychosocial Hx Smoking History: Never smoked Have you smoked in the past 12 months: No Hx Alcohol Use: No Drug/Substance Use Hx: No Substance Use Type: None Review of Systems - Review of Systems Comments:: 11/03/17 18:27 Unable to obtain. *Physical Exam - Vital Signs Last Vital Signs Temp Pulse Resp BP Pulse Ox 100.7 F H 16 L 20 145/76 97 11/03/17 16:35 11/03/17 16:35 11/03/17 16:35 11/03/17 16:35 11/03/17 16:35 - Physical Exam Comments: 11/03/17 18:27 GENERAL: Awake, alert, and oriented to self, in no acute distress HEAD: No signs of trauma, normocephalic, atraumatic EYES: PERRLA, EOMI, sclera anicteric, conjunctiva clear ENT: Auricles normal inspection, hearing grossly normal, nares patent, oropharynx clear without exudates. Moist mucosa NECK: Normal ROM, supple, no lymphadenopathy, JVD, or masses LUNGS: No distress, speaks full sentences, clear to auscultation bilaterally HEART: Regular rate and rhythm, normal S1 and S2, no murmurs, rubs or gallops, peripheral pulses normal and equal bilaterally. ABDOMEN: +Appears distended but soft, nontender, normoactive bowel sounds. No guarding, no rebound. No masses EXTREMITIES: Normal inspection, Normal range of motion, no edema. No clubbing or cyanosis. NEUROLOGICAL: Cranial nerves II through XII grossly intact. Normal speech, normal gait, no focal sensorimotor deficits SKIN: Warm, Dry, normal turgor, no rashes or lesions noted. ED Treatment Course - LABORATORY CBC & Chemistry Diagram: 11/04/17 07:30 11/04/17 07:30 Medical Decision Making - Medical Decision Making 11/03/17 18:29 Mr. Arnett is an 87 yo male w/ pmh as described who [facility] history of cough productive of yellow/green sputum. Oral temp noted to be 100.7 > sepsis workup started. 11/03/17 18:58 Patient signed off to Dr. Dwyer for further care. *DC/Admit/Observation/Transfer Diagnosis at time of Disposition: Fever, unspecified Pneumonia Qualifiers: Pneumonia type: due to unspecified organism Laterality: unspecified laterality Lung location: unspecified part of lung Qualified Code(s): J18.9 - Pneumonia, unspecified organism - Discharge Dispostion Condition at time of disposition: Stable - Referrals - Patient Instructions - Post Discharge Activity
[2017-11-03 18:50] LABS: VENOUS PC02 50.2 mmHg (38-52); VENOUS PH 7.36 (7.32-7.42); VENOUS PO2 36.4 mmHg (28-48)
[2017-11-03 18:52] LABS: BASO % 0.3 % (0-2.0); EOS % 1.1 % (0-4.5); HEMOGLOBIN 12.8 GM/dL (11.7-16.9); LYMPH % 8.4 % (8-40); MCH 29.2 pg (25.7-33.7); MCHC 33.8 g/dl (32.0-35.9); MEAN CELL VOLUME 86.5 fl (80-96); MEAN PLT VOLUME 7.7 fl (7.5-11.1); MONO % 12.6 % (3.8-10.2); NEUT % 77.6 % (42.8-82.8); PLATELET COUNT 201 K/MM3 (134-434); RBC 4.39 M/mm3 (4.00-5.60); RDW 14.6 % (11.9-15.9); WHITE BLOOD COUNT 10.1 K/mm3 (4.0-10.0)
[2017-11-03 18:56] LABS: URINE APPEARANCE CLEAR; URINE BILIRUBIN NEGATIVE (NEGATIVE); URINE BLOOD 1+ (NEGATIVE); URINE COLOR YELLOW; URINE GLUCOSE (UA) 2+ (NEGATIVE); URINE KETONE NEGATIVE (NEGATIVE); URINE LEUK ESTERASE NEGATIVE (NEGATIVE); URINE NITRITE NEGATIVE (NEGATIVE); URINE PROTEIN NEGATIVE (NEGATIVE)
[2017-11-03 19:03] LABS: EPI CELLS RARE /HPF (FEW); URINE MUCUS RARE
[2017-11-03 19:08] LABS: INR 1.27 (0.82-1.09); PROTHROMBIN TIME (PATIENT) 14.3 SEC (9.98-11.88)
[2017-11-03 19:11] LABS: ACTIVATED PTT 51.9 SECONDS (26.9-34.4)
--- NOTE | 2017-11-03 19:13 | PDOC ---
Attending Attestation - Resident Resident Name: Kirill Salmeron - ED Attending Attestation I have performed the following: I have examined & evaluated the patient, The case was reviewed & discussed with the resident, I agree w/resident's findings & plan, Exceptions are as noted - HPI HPI: 11/03/17 19:12 87 M with h/o CAD, afib, CABG, pacemaker, CHF, and dementia, presenting from NH for productive cough, worsening over the past day. Pt was recently admitted to hospital for CHF. Per NH report pt has had worsening cough and SOB. Pt is unable to contribute additional history himself. - Physicial Exam PE: 11/03/17 19:12 "GENERAL: Awake, alert, and fully oriented, in no acute distress HEAD: No signs of trauma EYES: PERRLA, EOMI, sclera anicteric, conjunctiva clear ENT: Auricles normal inspection, hearing grossly normal, nares patent, oropharynx clear without exudates. Moist mucosa NECK: Nontender, no stepoffs, Normal ROM, supple, no lymphadenopathy, JVD, or masses LUNGS: bilateral rhonchi HEART: Regular rate and rhythm, normal S1 and S2, no murmurs, rubs or gallops ABDOMEN: Soft, nontender, normoactive bowel sounds. No guarding, no rebound. No masses EXTREMITIES: Normal range of motion, no edema. No clubbing or cyanosis. No cords, erythema, or tenderness NEUROLOGICAL: Cranial nerves II through XII intact. 5/5 strength and sensation in all extremities, Normal speech, normal gait, normal cerebellar function SKIN: Warm, Dry, normal turgor, no rashes or lesions noted. " - Medical Decision Making 11/03/17 19:13 87 M with cough and SOB, found to be febrile to 100.7 in ED. Concerning for PNA vs URI/influenza. - Labs, cultures - CXR - Abx 11/03/17 21:03 CXR clear Will tx for clinical PNA given fever and productive cough.
[2017-11-03 19:21] LABS: ALBUMIN 3.3 g/dl (3.4-5.0); ANION GAP 7 (8-16); BLOOD UREA NITROGEN 14 mg/dL (7-18); CALCIUM 8.6 mg/dL (8.5-10.1); CHLORIDE 100 mmol/L (98-107); CO2 27 mmol/L (21-32); CREATININE 0.9 mg/dL (0.7-1.3); GLUCOSE,RANDOM 156 mg/dL (74-106); SGPT/ALT 55 U/L (12-78); SODIUM 134 mmol/L (136-145); TOT PROT 7.4 g/dl (6.4-8.2)
[2017-11-03 19:24] LABS: ALK PHOS 190 U/L (45-117)
[2017-11-03 19:26] LABS: POTASSIUM 4.9 mmol/L (3.5-5.1); SGOT/AST 46 U/L (15-37)
[2017-11-03] MEDS ORDERED: IBUPROFEN 600 MG TABLET (FP) PO ONE ×2 (19:41→19:52)
[2017-11-03] MEDS ORDERED: VANCOMYCIN 1,250 MG in DEXTROSE 5%-WATER - 250 ML IVPB ONE (20:08)
[2017-11-03] MEDS ORDERED: PIPERACILLIN/TAZOB 3.375 GM 50 ML IVPB ONE (20:08)
--- NOTE | 2017-11-03 20:12 | PDOC ---
*Physical Exam - Vital Signs Last Vital Signs Temp Pulse Resp BP Pulse Ox 100.7 F H 84 20 145/76 97 11/03/17 16:35 11/03/17 16:35 11/03/17 16:35 11/03/17 16:35 11/03/17 16:35 - Physical Exam Comments: 11/03/17 21:50 General Appearance: Nourished. No Apparent Distress HEENT: No Pharyngeal Erythema, Tonsillar Exudate, Tonsillar Erythema Neck: No Cervical Lymphadenopathy Respiratory/Chest: Lungs Clear, Normal Breath Sounds. No Crackles, Rales, Rhonchi, Wheezing Cardiovascular: Regular Rhythm, Regular Rate. No Murmur, Gallops, Rubs Gastrointestinal/Abdominal: Normal Bowel Sounds, Soft. No Guarding, Rebound, Tenderness Musculoskeletal: No CVA Tenderness Extremity: Normal Capillary Refill Integumentary: Normal Color, Dry, Warm Neurologic: Alert, Normal Mood/Affect, Normal Response, ED Treatment Course - LABORATORY CBC & Chemistry Diagram: 11/03/17 18:20 11/03/17 18:20 - ADDITIONAL ORDERS Additional order review: Laboratory Results 11/03/17 11/03/17 11/03/17 18:20 18:20 18:20 PT with INR INR PTT (Actin FS) VBG pH POC VBG pCO2 POC VBG pO2 Mixed VBG HCO3 Sodium 134 L Potassium 4.9 D Chloride 100 Carbon Dioxide 27 Anion Gap 7 L BUN 14 D Creatinine 0.9 Creat Clearance w eGFR > 60 Random Glucose 156 H Lactic Acid 1.8 Calcium 8.6 Total Bilirubin 1.0 AST 46 H D ALT 55 D Alkaline Phosphatase 190 H D Creatine Kinase 65 Troponin I < 0.02 Total Protein 7.4 Albumin 3.3 L Urine Color Urine Appearance Urine pH Ur Specific [place] Urine Protein Urine Glucose (UA) Urine Ketones Urine Blood Urine Nitrite Urine Bilirubin Urine Urobilinogen Ur Leukocyte Esterase Urine WBC (Auto) Urine RBC (Auto) Ur Epithelial Cells Urine Mucus Blood Type A POSITIVE Antibody Screen Negative 11/03/17 11/03/17 11/03/17 18:20 18:20 18:20 PT with INR 14.30 H INR 1.27 H PTT (Actin FS) 51.9 H VBG pH 7.36 POC VBG pCO2 50.2 POC VBG pO2 36.4 Mixed VBG HCO3 27.4 H Sodium Potassium Chloride Carbon Dioxide Anion Gap BUN Creatinine Creat Clearance w eGFR Random Glucose Lactic Acid Calcium Total Bilirubin AST ALT Alkaline Phosphatase Creatine Kinase Troponin I Total Protein Albumin Urine Color Yellow Urine Appearance Clear Urine pH 5.0 Ur Specific [place] 1.019 Urine Protein Negative Urine Glucose (UA) 2+ H Urine Ketones Negative Urine Blood 1+ H Urine Nitrite Negative Urine Bilirubin Negative Urine Urobilinogen 2.0 Ur Leukocyte Esterase Negative Urine WBC (Auto) 1 Urine RBC (Auto) 1 Ur Epithelial Cells Rare Urine Mucus Rare Blood Type Antibody Screen 11/03/17 18:20 RBC 4.39 MCV 86.5 MCHC 33.8 RDW 14.6 MPV 7.7 Neutrophils % 77.6 D Lymphocytes % 8.4 D Monocytes % 12.6 H Eosinophils % 1.1 Basophils % 0.3 - Medications Given in the ED: ED Medications Discontinued Medications Generic Name Dose Route Start Last Admin Trade Name Freq PRN Reason Stop Dose Admin Ibuprofen 600 mg 11/03/17 19:41 11/03/17 19:54 Motrin - PO 11/03/17 19:42 600 mg ONCE ONE Administration Progress Note - Progress Note Progress Note: The patient is an 87 year old male who presented for a 2 week history of productive cough with a fever of 100.7. Patient is pending lab results and will be a likely admission. Medical Decision Making - Medical Decision Making 11/03/17 21:51 CBC demonstrates a wbc elevation to 10.1. CMP, troponin, ua are unremarkable. Chest plain film does not demonstrate any focal infiltrates as preliminarily read by ER physician. Given the patient's temperature and productive cough, we will treat the patient as a clinical pneumonia and believe he requires admission for further management of his symptoms. We discussed the case with the hospitalist team who accepted the patient for admission. *DC/Admit/Observation/Transfer Diagnosis at time of Disposition: Fever, unspecified Pneumonia Qualifiers: Pneumonia type: due to unspecified organism Laterality: unspecified laterality Lung location: unspecified part of lung Qualified Code(s): J18.9 - Pneumonia, unspecified organism - Discharge Dispostion Condition at time of disposition: Stable Admit: Yes - Referrals - Patient Instructions - Post Discharge Activity
--- NOTE | 2017-11-03 22:37 | PN ---
Teaching Attending Note Name of Resident: Donavon Lara ATTENDING PHYSICIAN STATEMENT I saw and evaluated the patient. I reviewed the resident's note and discussed the case with the resident. I agree with the resident's findings and plan as documented. SUBJECTIVE: OBJECTIVE: Vital Signs Period Temp Pulse Resp BP Sys/Higgins Pulse Ox Last 24 Hr 100.7 F 84 20 145/76 97 Laboratory Tests 11/03/17 11/03/17 11/03/17 18:20 18:20 18:20 WBC 10.1 H D RBC 4.39 Hgb 12.8 Hct 38.0 MCV 86.5 MCH 29.2 MCHC 33.8 RDW 14.6 Plt Count 201 D MPV 7.7 Neutrophils % 77.6 D Lymphocytes % 8.4 D Monocytes % 12.6 H Eosinophils % 1.1 Basophils % 0.3 PT with INR 14.30 H INR 1.27 H PTT (Actin FS) 51.9 H VBG pH POC VBG pCO2 POC VBG pO2 Mixed VBG HCO3 Sodium Potassium Chloride Carbon Dioxide Anion Gap BUN Creatinine Creat Clearance w eGFR Random Glucose Lactic Acid Calcium Total Bilirubin AST ALT Alkaline Phosphatase Creatine Kinase Troponin I Total Protein Albumin Urine Color Yellow Urine Appearance Clear Urine pH 5.0 Ur Specific [place] 1.019 Urine Protein Negative Urine Glucose (UA) 2+ H Urine Ketones Negative Urine Blood 1+ H Urine Nitrite Negative Urine Bilirubin Negative Urine Urobilinogen 2.0 Ur Leukocyte Esterase Negative Urine WBC (Auto) 1 Urine RBC (Auto) 1 Ur Epithelial Cells Rare Urine Mucus Rare Blood Type Antibody Screen 11/03/17 11/03/17 11/03/17 18:20 18:20 18:20 WBC RBC Hgb Hct MCV MCH MCHC RDW Plt Count MPV Neutrophils % Lymphocytes % Monocytes % Eosinophils % Basophils % PT with INR INR PTT (Actin FS) VBG pH 7.36 POC VBG pCO2 50.2 POC VBG pO2 36.4 Mixed VBG HCO3 27.4 H Sodium 134 L Potassium 4.9 D Chloride 100 Carbon Dioxide 27 Anion Gap 7 L BUN 14 D Creatinine 0.9 Creat Clearance w eGFR > 60 Random Glucose 156 H Lactic Acid 1.8 Calcium 8.6 Total Bilirubin 1.0 AST 46 H D ALT 55 D Alkaline Phosphatase 190 H D Creatine Kinase 65 Troponin I < 0.02 Total Protein 7.4 Albumin 3.3 L Urine Color Urine Appearance Urine pH Ur Specific [place] Urine Protein Urine Glucose (UA) Urine Ketones Urine Blood Urine Nitrite Urine Bilirubin Urine Urobilinogen Ur Leukocyte Esterase Urine WBC (Auto) Urine RBC (Auto) Ur Epithelial Cells Urine Mucus Blood Type Antibody Screen 11/03/17 18:20 WBC RBC Hgb Hct MCV MCH MCHC RDW Plt Count MPV Neutrophils % Lymphocytes % Monocytes % Eosinophils % Basophils % PT with INR INR PTT (Actin FS) VBG pH POC VBG pCO2 POC VBG pO2 Mixed VBG HCO3 Sodium Potassium Chloride Carbon Dioxide Anion Gap BUN Creatinine Creat Clearance w eGFR Random Glucose Lactic Acid Calcium Total Bilirubin AST ALT Alkaline Phosphatase Creatine Kinase Troponin I Total Protein Albumin Urine Color Urine Appearance Urine pH Ur Specific [place] Urine Protein Urine Glucose (UA) Urine Ketones Urine Blood Urine Nitrite Urine Bilirubin Urine Urobilinogen Ur Leukocyte Esterase Urine WBC (Auto) Urine RBC (Auto) Ur Epithelial Cells Urine Mucus Blood Type A POSITIVE Antibody Screen Negative Home Medications Medication Instructions Recorded Acetaminophen 650 mg PO Q6H PRN 10/22/17 Albuterol Sulfate Inhaler - 2 inh PO QID PRN 10/22/17 [Ventolin HFA Inhaler -] Aspirin 81 mg PO DAILY 10/22/17 Carvedilol 12.5 mg PO BID 10/22/17 Cholecalciferol (Vitamin D3) 50,000 unit PO MONTHLY 10/22/17 [Vitamin D -] Dabigatran Etexilate Mesylate 150 mg PO BID 10/22/17 [Pradaxa -] Isosorbide Mononitrate [Imdur -] 30 mg PO DAILY 10/22/17 Lisinopril 5 mg PO DAILY 10/22/17 Metformin HCl 500 mg PO DAILY 10/22/17 Mirabegron [Myrbetriq] 50 mg PO DAILY 10/22/17 Nitroglycerin [Nitrostat] 0.4 mg SL PRN PRN 10/22/17 Polyethylene Glycol 3350 [Glycolax] 1 scoop PO DAILY 10/22/17 Potassium Chloride [Klor-Con M10] 10 meq PO DAILY 10/22/17 Quetiapine Fumarate [Seroquel -] 12.5 mg PO HS 10/22/17 Atorvastatin Ca [Lipitor] 40 mg PO HS 10/23/17 Docusate Sodium [Colace -] 200 mg PO HS 10/23/17 Mag Hydrox/Aluminum Hyd/Simeth 10 ml PO TID 10/23/17 [Rulox Suspension] Furosemide [Lasix -] 20 mg PO DAILY #30 tablet 10/24/17 ASSESSMENT AND PLAN:
[2017-11-03] MEDS ORDERED: ACETAMINOPHEN 325 MG TABLET (FP) PO PRN (23:06)
--- NOTE | 2017-11-04 00:04 | HP ---
CHIEF COMPLAINT: sent from [facility] PCP: Sharon Bui MD HISTORY OF PRESENT ILLNESS: 87 y/o M w/PMH of CAD, afib, cabg, dementia presents to ER from [facility] facility for evaluation of persistent cough with sputum production. Pt is AAOx1 (to self only) and history may not be completely reliable. As per pt, for 1 month pt has had body aches and cough that has not improved or worsened. He also states he has phlegm that is gold in color but he says he has had that for a long time and did not notice any change in color of phlegm or amount and denies any blood in phlegm. He also feels like he cannot walk as far as he used to and has some dyspnea with exertion over the last 2 months. He also feels like he "feels hot" today but denies any fevers or feeling hot in the past before this. Denies CP, LITTLE, abd pain, change in bowel or urinary habits, blood in stool, nausea, vomiting, new LE swelling. ER course was notable for: (1) ibuprofen, vanc, zosyn (2) cxr (3) Recent Travel: denies PAST MEDICAL HISTORY:CAD, afib, cabg, dementia PAST SURGICAL HISTORY: unknown Social History: Smoking:denies ever smoking Alcohol:denies Drugs: denies Family History: unknown Allergies No Known Allergies Allergy (Verified 11/03/17 16:55) HOME MEDICATIONS: Home Medications Medication Instructions Recorded Acetaminophen 650 mg PO Q6H PRN 10/22/17 Albuterol Sulfate Inhaler - 2 inh PO QID PRN 10/22/17 [Ventolin HFA Inhaler -] Aspirin 81 mg PO DAILY 10/22/17 Carvedilol 12.5 mg PO BID 10/22/17 Cholecalciferol (Vitamin D3) 50,000 unit PO MONTHLY 10/22/17 [Vitamin D -] Dabigatran Etexilate Mesylate 150 mg PO BID 10/22/17 [Pradaxa -] Isosorbide Mononitrate [Imdur -] 30 mg PO DAILY 10/22/17 Lisinopril 5 mg PO DAILY 10/22/17 Metformin HCl 500 mg PO DAILY 10/22/17 Mirabegron [Myrbetriq] 50 mg PO DAILY 10/22/17 Nitroglycerin [Nitrostat] 0.4 mg SL PRN PRN 10/22/17 Polyethylene Glycol 3350 [Glycolax] 1 scoop PO DAILY 10/22/17 Potassium Chloride [Klor-Con M10] 10 meq PO DAILY 10/22/17 Quetiapine Fumarate [Seroquel -] 12.5 mg PO HS 10/22/17 Atorvastatin Ca [Lipitor] 40 mg PO HS 10/23/17 Docusate Sodium [Colace -] 200 mg PO HS 10/23/17 Mag Hydrox/Aluminum Hyd/Simeth 10 ml PO TID 10/23/17 [Rulox Suspension] Furosemide [Lasix -] 20 mg PO DAILY #30 tablet 10/24/17 REVIEW OF SYSTEMS CONSTITUTIONAL: +fever, body aches Absent: chills CARDIOVASCULAR: Absent: chest pain, peripheral edema RESPIRATORY: +cough, nguyen Absent: hemoptysis GASTROINTESTINAL: Absent: abdominal pain,nausea, vomiting, diarrhea, constipation, hematochezia GENITOURINARY: Absent: dysuria, frequency MUSCULOSKELETAL: +body aches NEUROLOGIC: Absent: headache PHYSICAL EXAMINATION Vital Signs - 24 hr 11/03/17 16:35 Temperature 100.7 F H Pulse Rate 84 Respiratory 20 Rate Blood Pressure 145/76 O2 Sat by Pulse 97 Oximetry (%) GENERAL: Awake, alert, and oriented to self only. In no acute distress. EYES: sclera anicteric, conjunctiva clear. EARS, NOSE, THROAT: Rheum around both eyes. NECK: Normal range of motion, supple LUNGS: Mild crackles at bases. No accessory muscle use. HEART: Irregularly irregular, normal S1 and S2 ABDOMEN: Soft, obese, nontender, not distended, normoactive bowel sounds LOWER EXTREMITIES: warm, well-perfused. 2+ pitting edema in LLE, 1+ pitting edema in RLE. NEUROLOGICAL: Dementia. Normal speech. Gait not observed. PSYCHIATRIC: Cooperative. Good eye contact. Appropriate mood and affect. SKIN: Warm, dry Laboratory Results - last 24 hr 11/03/17 11/03/17 11/03/17 18:20 18:20 18:20 WBC 10.1 H D RBC 4.39 Hgb 12.8 Hct 38.0 MCV 86.5 MCH 29.2 MCHC 33.8 RDW 14.6 Plt Count 201 D MPV 7.7 Neutrophils % 77.6 D Lymphocytes % 8.4 D Monocytes % 12.6 H Eosinophils % 1.1 Basophils % 0.3 PT with INR 14.30 H INR 1.27 H PTT (Actin FS) 51.9 H VBG pH POC VBG pCO2 POC VBG pO2 Mixed VBG HCO3 Sodium Potassium Chloride Carbon Dioxide Anion Gap BUN Creatinine Creat Clearance w eGFR Random Glucose Lactic Acid Calcium Total Bilirubin AST ALT Alkaline Phosphatase Creatine Kinase Troponin I Total Protein Albumin Urine Color Yellow Urine Appearance Clear Urine pH 5.0 Ur Specific [place] 1.019 Urine Protein Negative Urine Glucose (UA) 2+ H Urine Ketones Negative Urine Blood 1+ H Urine Nitrite Negative Urine Bilirubin Negative Urine Urobilinogen 2.0 Ur Leukocyte Esterase Negative Urine WBC (Auto) 1 Urine RBC (Auto) 1 Ur Epithelial Cells Rare Urine Mucus Rare Blood Type Antibody Screen 11/03/17 11/03/17 11/03/17 18:20 18:20 18:20 WBC RBC Hgb Hct MCV MCH MCHC RDW Plt Count MPV Neutrophils % Lymphocytes % Monocytes % Eosinophils % Basophils % PT with INR INR PTT (Actin FS) VBG pH 7.36 POC VBG pCO2 50.2 POC VBG pO2 36.4 Mixed VBG HCO3 27.4 H Sodium 134 L Potassium 4.9 D Chloride 100 Carbon Dioxide 27 Anion Gap 7 L BUN 14 D Creatinine 0.9 Creat Clearance w eGFR > 60 Random Glucose 156 H Lactic Acid 1.8 Calcium 8.6 Total Bilirubin 1.0 AST 46 H D ALT 55 D Alkaline Phosphatase 190 H D Creatine Kinase 65 Troponin I < 0.02 Total Protein 7.4 Albumin 3.3 L Urine Color Urine Appearance Urine pH Ur Specific [place] Urine Protein Urine Glucose (UA) Urine Ketones Urine Blood Urine Nitrite Urine Bilirubin Urine Urobilinogen Ur Leukocyte Esterase Urine WBC (Auto) Urine RBC (Auto) Ur Epithelial Cells Urine Mucus Blood Type Antibody Screen 11/03/17 18:20 WBC RBC Hgb Hct MCV MCH MCHC RDW Plt Count MPV Neutrophils % Lymphocytes % Monocytes % Eosinophils % Basophils % PT with INR INR PTT (Actin FS) VBG pH POC VBG pCO2 POC VBG pO2 Mixed VBG HCO3 Sodium Potassium Chloride Carbon Dioxide Anion Gap BUN Creatinine Creat Clearance w eGFR Random Glucose Lactic Acid Calcium Total Bilirubin AST ALT Alkaline Phosphatase Creatine Kinase Troponin I Total Protein Albumin Urine Color Urine Appearance Urine pH Ur Specific [place] Urine Protein Urine Glucose (UA) Urine Ketones Urine Blood Urine Nitrite Urine Bilirubin Urine Urobilinogen Ur Leukocyte Esterase Urine WBC (Auto) Urine RBC (Auto) Ur Epithelial Cells Urine Mucus Blood Type A POSITIVE Antibody Screen Negative Imaging: CXR: as per my read: no acute pathology, pacemaker noted. Active Medications Acetaminophen (Tylenol -) 650 mg PO Q6H PRN PRN Reason: FEVER Aspirin (Asa -) 81 mg PO DAILY [facility] Atorvastatin Calcium (Lipitor -) 40 mg PO HS [facility] Carvedilol (Coreg -) 12.5 mg PO BID [facility] Last Admin: 11/04/17 00:37 Dose: 12.5 mg Dabigatran (Pradaxa -) 150 mg PO BID [facility] Last Admin: 11/04/17 00:37 Dose: 150 mg Docusate Sodium (Colace -) 200 mg PO HS [facility] Furosemide (Lasix -) 20 mg PO DAILY [facility] Azithromycin 500 mg/ Dextrose 250 mls @ 250 mls/hr IVPB DAILY [facility] CEFTRIAXONE 1 G/50 ML PREMIX (Ceftriaxone 1 Gm-D5w Bag) 50 mls @ 100 mls/hr IVPB DAILY [facility] Isosorbide Mononitrate (Imdur -) 30 mg PO DAILY [facility] Lisinopril (Prinivil) 5 mg PO DAILY [facility] Non-Formulary Medication (Mirabegron [Myrbetriq]) 50 mg PO DAILY [facility] Polyethylene Glycol (Miralax (For Daily Use) -) 17 gm PO DAILY [facility] Quetiapine Fumarate (Seroquel -) 12.5 mg PO HS [facility] Last Admin: 11/04/17 00:37 Dose: 12.5 mg ASSESSMENT/PLAN: 87 y/o M w/PMH of CAD, afib, cabg, dementia presents to ER from [facility] for evaluation of persistent cough with sputum production. Found to have fever here. -Fever secondary to pna vs viral etiology -pt with cough w/yellow sputum, fever, mild leukocytosis - will treat for CAP (recent admission to hospital was brief, here for obs) -ceftriaxone 1g iv qd, azithromycin 500 mg iv qd -tylenol for fevers -f/u cxr in AM -A-fib -c/w pradaxa 150 mg po bid, coreg 12.5 mg po bid -CAD -c/w asa 81, atorvastatin 40 mg po qhs -HTN -c/w coreg 12.5 mg po bid, lasix 20 mg po qd, lisinopril 5 mg po qd -Urinary incontinence -c/w myrbetriq 50 mg po qd -DVT ppx -on pradaxa -FEN -no fluids for now -monitor electrolytes -low sodium diet -Dispo: admit to m/s Visit type - Emergency Visit Emergency Visit: Yes ED Registration Date: 11/03/17 Care time: The patient presented to the Emergency Department on the above date and was hospitalized for further evaluation of their emergent condition. - New Patient This patient is new to me today: Yes Date on this admission: 11/04/17 - Critical Care Critical Care patient: No Hospitalist Screening - Colonoscopy Questionnaire Colonoscopy Questionnaire: Colonoscopy Questionnaire - Patient: 50 - 75 years old and never had a screening colonoscopy: Unknown History of colon or rectal polyps, or CA: Unknown History of IBD, Crohn's disease or UC: Unknown History of abdominal radiation therapy as a child: Unknown - Relative: 1 with colon or rectal CA, or polyps at age 60 or younger: Unknown Colon or rectal CA diagnosed at age 45 or younger: Unknown Multiple relatives with colon or rectal CA: Unknown - Outcome: Screening Result: Negative Screen
[2017-11-04] MEDS ORDERED: PIPERACILLIN/TAZOB 3.375 GM 3.375 GM/50 ML BAG IVPB ONE (00:30)
[2017-11-04] MEDS ORDERED: VANCOMYCIN 1 GRAM (PRE-DOCKED) 1,000 MG/250 ML BAG IVPB ONE (00:30)
[2017-11-04] MEDS: QUEtiapine FUMARATE 25 MG TABLET (FP) PO SCH ×2 (00:37→22:05)
[2017-11-04] MEDS: CARVEDILOL 12.5 MG TABLET (FP) PO SCH ×3 (00:37→22:05)
[2017-11-04] MEDS: DABIGATRAN ETEXILATE MESYLATE 150 MG CAPSULE PO SCH ×3 (00:37→22:05)
[2017-11-04 03:23] VITALS: BMI 25.0
--- NOTE | 2017-11-04 07:29 | MSN ---
Progress Note (short form) - Note Progress Note: Subjective: 87yo M w/ hx of CHF, HTN, CAD w/ LBBB, afib, dementia, DM presented from [facility] due to cough productive for yellow sputum. Patient was here on 10/24 for SOB, given lasix and improved. Patient was seen and examined this morning. Per nursing, patient has been sleeping all night. Patient is a deep sleeper and difficult to wake. Patient responded "yes" and "no" to questioning but refuses to wake up. Patient still has cough productive for yellow sputum yesterday, nonproductive this morning. According to the custodial patient was given cough syrup, has some wheezing, around flu contacts, has not been treated with tamiflu. Patient denies SOB, chest pain, abdominal pain. Objective: Last Vital Signs Temp Pulse Resp BP Pulse Ox 97.5 F L 72 20 98/59 98 11/04/17 03:14 11/04/17 03:14 11/04/17 03:14 11/04/17 03:14 11/04/17 03:29 Intake & Output 11/01/17 11/02/17 11/03/17 11/04/17 23:59 23:59 23:59 23:59 Weight 180 lb 160 lb General: Patient is an elderly man, in no acute distress, resting comfortably, some coughing when awaken. HEENT: PERRL, thick yellow mucus on eyes b/l. conjunctival injection noted. no lymphadenopathy noted. oropharnx clear with no exudates. Heart: distant heart sound, irregular rate. Lungs: coarse breath sounds anteriorly, no wheezing, crackles or rhonci appreciated. Abdomen: normoactive bowel sounds x4, soft, nontender to palpation. Extremities: pulses 2+ b/l on UE and LE. 1+ edema b/l. CBC, BMP 11/03/17 18:20 11/03/17 18:20 CBC, BMP 11/04/17 07:30 11/04/17 07:30 Abnormal Lab Results 11/03/17 11/03/17 11/03/17 18:20 18:20 18:20 WBC 10.1 H D Monocytes % 12.6 H PT with INR 14.30 H INR 1.27 H PTT (Actin FS) 51.9 H Mixed VBG HCO3 Sodium Anion Gap Random Glucose AST Alkaline Phosphatase Albumin Urine Glucose (UA) 2+ H Urine Blood 1+ H 11/03/17 11/03/17 18:20 18:20 WBC Monocytes % PT with INR INR PTT (Actin FS) Mixed VBG HCO3 27.4 H Sodium 134 L Anion Gap 7 L Random Glucose 156 H AST 46 H D Alkaline Phosphatase 190 H D Albumin 3.3 L Urine Glucose (UA) Urine Blood Home Medications Medication Instructions Recorded Acetaminophen 650 mg PO Q6H PRN 10/22/17 Albuterol Sulfate Inhaler - 2 inh PO QID PRN 10/22/17 [Ventolin HFA Inhaler -] Aspirin 81 mg PO DAILY 10/22/17 Carvedilol 12.5 mg PO BID 10/22/17 Cholecalciferol (Vitamin D3) 50,000 unit PO MONTHLY 10/22/17 [Vitamin D -] Dabigatran Etexilate Mesylate 150 mg PO BID 10/22/17 [Pradaxa -] Isosorbide Mononitrate [Imdur -] 30 mg PO DAILY 10/22/17 Lisinopril 5 mg PO DAILY 10/22/17 Metformin HCl 500 mg PO DAILY 10/22/17 Mirabegron [Myrbetriq] 50 mg PO DAILY 10/22/17 Nitroglycerin [Nitrostat] 0.4 mg SL PRN PRN 10/22/17 Polyethylene Glycol 3350 [Glycolax] 1 scoop PO DAILY 10/22/17 Potassium Chloride [Klor-Con M10] 10 meq PO DAILY 10/22/17 Quetiapine Fumarate [Seroquel -] 12.5 mg PO HS 10/22/17 Atorvastatin Ca [Lipitor] 40 mg PO HS 10/23/17 Docusate Sodium [Colace -] 200 mg PO HS 10/23/17 Mag Hydrox/Aluminum Hyd/Simeth 10 ml PO TID 10/23/17 [Rulox Suspension] Furosemide [Lasix -] 20 mg PO DAILY #30 tablet 10/24/17 Assessment/ Plan: 87yo M who presented with productive cough and subjective fever likely secondary to CAP. # conjunctivitis b/l - ofloxacin 2 drops per eye q4h x 5 days. -- day 1 # cough secondary to CAP? flu? post nasal drip? - was also present on last admission. CXR clear. chest CT? - azithromycin 500, ceftriaxone day 1 - [facility] reports flu around facility. # hx of afib - rate controlled - patient has pacemaker. - Carvedilol (Coreg -) 12.5 mg PO BID [facility] - Dabigatran (Pradaxa -) 150 mg PO BID [facility] # CAD with pace maker - continue home meds - Aspirin (Asa -) 81 mg PO DAILY [facility] - Isosorbide Mononitrate (Imdur -) 30 mg PO DAILY [facility] - Lisinopril (Prinivil) 5 mg PO DAILY [facility] - Atorvastatin Calcium (Lipitor -) 40 mg PO HS FRANCINE # CHF - continue home meds - lasix 20mg po daily # overactive bladder - continue home meds - Mirabegron [Myrbetriq] 50 mg PO DAILY [facility] F: po E: wnl N: diabetic diet, low sodium po
[2017-11-04 07:53] LABS: BASO % 0.4 % (0-2.0); EOS % 2.4 % (0-4.5); HEMATOCRIT 35.3 % (35.4-49); HEMOGLOBIN 12.2 GM/dL (11.7-16.9); LYMPH % 8.4 % (8-40); MCH 29.3 pg (25.7-33.7); MCHC 34.5 g/dl (32.0-35.9); MEAN PLT VOLUME 7.5 fl (7.5-11.1); MONO % 12.7 % (3.8-10.2); NEUT % 76.1 % (42.8-82.8); PLATELET COUNT 179 K/MM3 (134-434); RBC 4.16 M/mm3 (4.00-5.60); RDW 14.4 % (11.9-15.9)
[2017-11-04 08:41] LABS: ALBUMIN 2.9 g/dl (3.4-5.0); ANION GAP 11 (8-16); BILIRUBIN,TOTAL 1.1 mg/dL (0.2-1.0); BLOOD UREA NITROGEN 13 mg/dL (7-18); CALCIUM 8.8 mg/dL (8.5-10.1); CHLORIDE 99 mmol/L (98-107); CO2 26 mmol/L (21-32); CREATININE 0.8 mg/dL (0.7-1.3); GLUCOSE,RANDOM 155 mg/dL (74-106); POTASSIUM 3.9 mmol/L (3.5-5.1); SGOT/AST 24 U/L (15-37); SGPT/ALT 44 U/L (12-78); SODIUM 136 mmol/L (136-145); TOT PROT 6.5 g/dl (6.4-8.2)
[2017-11-04 08:42] LABS: ALK PHOS 159 U/L (45-117)
[2017-11-04] MEDS ORDERED: PATIENT'S OWN MEDICATION (NON-FORMULARY) (Mirabegron [Myrbetriq] 50 MG) PO SCH (10:00)
[2017-11-04] MEDS ORDERED: PT OWN MED DRAWER 7, Y5N ONE (10:10)
[2017-11-04] MEDS: AZITHROMYCIN IVPB 500 MG in DEXTROSE 5%-WATER - 250 ML IVPB SCH (10:17)
[2017-11-04] MEDS: POLYETHYLENE GLYCOL 3350 119 GM BTL PO SCH (10:18)
[2017-11-04] MEDS: FUROSEMIDE 20 MG TABLET (FP) PO SCH (10:18)
[2017-11-04] MEDS: CEFTRIAXONE 1 G/50 ML PREMIX 50 ML IVPB SCH (10:18)
[2017-11-04] MEDS: ASPIRIN 81 MG CHEWABLE TABLETS PO SCH (10:18)
[2017-11-04] MEDS: LISINOPRIL 5 MG TABLET (FP) PO SCH (10:18)
[2017-11-04] MEDS: ISOSORBIDE MONONITRATE 30 MG TAB.SR.24H (FP) PO SCH (10:18)
--- NOTE | 2017-11-04 13:14 | PN ---
Teaching Attending Note Name of Resident: Mary Rios ATTENDING PHYSICIAN STATEMENT I saw and evaluated the patient. I reviewed the resident's note and discussed the case with the resident. I agree with the resident's findings and plan as documented. SUBJECTIVE:c/o persistent cough. states it is dry. unable to clarify if this has been worsening or improving. denies CP, fever, chills, myalgias, N/V/C/D. unknown if he has had sick contacts at the skilled nursing or flu OBJECTIVE: Last Vital Signs Temp Pulse Resp BP Pulse Ox 97.7 F 78 18 110/57 95 11/04/17 08:06 11/04/17 08:06 11/04/17 08:06 11/04/17 08:06 11/04/17 09:00 General NAD HEENT B/L purulent yellow drainage, injected conjunctiva B/L CV S1 S2 irregular Lungs CTA B/L no wheezing/rales/rhonchi ASSESSMENT AND PLAN: 86yo M with PMH CAD, HTN, afib on pradaxa, dyslipidemia, s/p PPM was sent to the ER after noted to be tachypnic at the SNF 1. Cough- persistent cough. 3rd Hospital visit this month for this symptom. has been treated with lasix. multiple CXR have been clear with possible congestion but today is clear. will obtain CT chest to further evaluate cause of cough. will start flonase for possible post nasal drip. Tm 100.7 with mild leukcoytosis. on Ceftriaxone/Azithro day 2 of abx (received vanco/zsoyn in the ER). check flu if available. 2. B/L conjunctivitis- start oflaxacin ggt 2 drops Q6H for 5 days. 3. afib- currently paced. cont coreg and pradaxa 4. CAD- on asa, imdur, acei, statin 5. HTN-controlled. 6. Urinary incontinence- mybertriq 7. DM- cont iss, BGM 8. DVT ppx- EAM
--- NOTE | 2017-11-04 14:24 | PN ---
Physical Exam: SUBJECTIVE: Patient seen and examined. C/o persistent cough productive of yellow sputum. Pt denies myalgia, chest pain, dyspnea, abdominal pain, fever, chills. OBJECTIVE: Vital Signs Period Temp Pulse Resp BP Sys/Higgins Pulse Ox Last 24 Hr 97.4 F-100.7 F 72-84 18-20 98-145/57-76 95-98 GENERAL: AAOx2, in NAD. EYES: PERRL, extraocular movements intact, +jonathan injected conjunctiva, +jonathan purulent yellow discharge. LUNGS: Breath sounds equal, clear to auscultation bilaterally, no wheezes, no crackles, no accessory muscle use. HEART: irregularly irregular, +S1/S2, no murmur appreciated. ABDOMEN: Soft, nontender, nondistended, no guarding. EXTREMITIES: Warm, well-perfused, 1+ pitting jonathan edema. PSYCH: Normal mood, normal affect. SKIN: Warm, dry, normal turgor, no rashes or lesions noted Laboratory Results - last 24 hr 11/03/17 11/03/17 11/03/17 18:20 18:20 18:20 WBC 10.1 H D RBC 4.39 Hgb 12.8 Hct 38.0 MCV 86.5 MCH 29.2 MCHC 33.8 RDW 14.6 Plt Count 201 D MPV 7.7 Neutrophils % 77.6 D Lymphocytes % 8.4 D Monocytes % 12.6 H Eosinophils % 1.1 Basophils % 0.3 PT with INR 14.30 H INR 1.27 H PTT (Actin FS) 51.9 H VBG pH POC VBG pCO2 POC VBG pO2 Mixed VBG HCO3 Sodium Potassium Chloride Carbon Dioxide Anion Gap BUN Creatinine Creat Clearance w eGFR Random Glucose Lactic Acid Calcium Total Bilirubin AST ALT Alkaline Phosphatase Creatine Kinase Troponin I Total Protein Albumin Urine Color Yellow Urine Appearance Clear Urine pH 5.0 Ur Specific [place] 1.019 Urine Protein Negative Urine Glucose (UA) 2+ H Urine Ketones Negative Urine Blood 1+ H Urine Nitrite Negative Urine Bilirubin Negative Urine Urobilinogen 2.0 Ur Leukocyte Esterase Negative Urine WBC (Auto) 1 Urine RBC (Auto) 1 Ur Epithelial Cells Rare Urine Mucus Rare Blood Type Antibody Screen 11/03/17 11/03/17 11/03/17 18:20 18:20 18:20 WBC RBC Hgb Hct MCV MCH MCHC RDW Plt Count MPV Neutrophils % Lymphocytes % Monocytes % Eosinophils % Basophils % PT with INR INR PTT (Actin FS) VBG pH 7.36 POC VBG pCO2 50.2 POC VBG pO2 36.4 Mixed VBG HCO3 27.4 H Sodium 134 L Potassium 4.9 D Chloride 100 Carbon Dioxide 27 Anion Gap 7 L BUN 14 D Creatinine 0.9 Creat Clearance w eGFR > 60 Random Glucose 156 H Lactic Acid 1.8 Calcium 8.6 Total Bilirubin 1.0 AST 46 H D ALT 55 D Alkaline Phosphatase 190 H D Creatine Kinase 65 Troponin I < 0.02 Total Protein 7.4 Albumin 3.3 L Urine Color Urine Appearance Urine pH Ur Specific [place] Urine Protein Urine Glucose (UA) Urine Ketones Urine Blood Urine Nitrite Urine Bilirubin Urine Urobilinogen Ur Leukocyte Esterase Urine WBC (Auto) Urine RBC (Auto) Ur Epithelial Cells Urine Mucus Blood Type Antibody Screen 11/03/17 11/04/17 11/04/17 18:20 01:05 07:30 WBC 8.0 RBC 4.16 Hgb 12.2 Hct 35.3 L MCV 85.0 MCH 29.3 MCHC 34.5 RDW 14.4 Plt Count 179 MPV 7.5 Neutrophils % 76.1 Lymphocytes % 8.4 Monocytes % 12.7 H Eosinophils % 2.4 D Basophils % 0.4 PT with INR INR PTT (Actin FS) VBG pH POC VBG pCO2 POC VBG pO2 Mixed VBG HCO3 Sodium Potassium Chloride Carbon Dioxide Anion Gap BUN Creatinine Creat Clearance w eGFR Random Glucose Lactic Acid 1.1 Calcium Total Bilirubin AST ALT Alkaline Phosphatase Creatine Kinase Troponin I Total Protein Albumin Urine Color Urine Appearance Urine pH Ur Specific [place] Urine Protein Urine Glucose (UA) Urine Ketones Urine Blood Urine Nitrite Urine Bilirubin Urine Urobilinogen Ur Leukocyte Esterase Urine WBC (Auto) Urine RBC (Auto) Ur Epithelial Cells Urine Mucus Blood Type A POSITIVE Antibody Screen Negative 11/04/17 07:30 WBC RBC Hgb Hct MCV MCH MCHC RDW Plt Count MPV Neutrophils % Lymphocytes % Monocytes % Eosinophils % Basophils % PT with INR INR PTT (Actin FS) VBG pH POC VBG pCO2 POC VBG pO2 Mixed VBG HCO3 Sodium 136 Potassium 3.9 D Chloride 99 Carbon Dioxide 26 Anion Gap 11 BUN 13 Creatinine 0.8 Creat Clearance w eGFR > 60 Random Glucose 155 H Lactic Acid Calcium 8.8 Total Bilirubin 1.1 H AST 24 D ALT 44 Alkaline Phosphatase 159 H Creatine Kinase Troponin I Total Protein 6.5 Albumin 2.9 L Urine Color Urine Appearance Urine pH Ur Specific [place] Urine Protein Urine Glucose (UA) Urine Ketones Urine Blood Urine Nitrite Urine Bilirubin Urine Urobilinogen Ur Leukocyte Esterase Urine WBC (Auto) Urine RBC (Auto) Ur Epithelial Cells Urine Mucus Blood Type Antibody Screen Active Medications Generic Name Dose Route Start Last Admin Trade Name Freq PRN Reason Stop Dose Admin Acetaminophen 650 mg 11/03/17 23:06 Tylenol - PO Q6H PRN FEVER Aspirin 81 mg 11/04/17 10:00 11/04/17 10:18 Asa - PO 81 mg DAILY [facility] Administration Atorvastatin Calcium 40 mg 11/04/17 22:00 Lipitor - PO HS [facility] Carvedilol 12.5 mg 11/03/17 23:15 11/04/17 10:18 Coreg - PO 12.5 mg BID FR[facility]INE Administration Dabigatran 150 mg 11/03/17 23:15 11/04/17 10:17 Pradaxa - PO 150 mg BID FRANCINE Administration Docusate Sodium 200 mg 11/04/17 22:00 Colace - PO HS [facility] Fluticasone Propionate 2 spray 11/04/17 13:45 Flonase - NS DAILY [facility] Furosemide 20 mg 11/04/17 10:00 11/04/17 10:18 Lasix - PO 20 mg DAILY [facility] Administration Azithromycin 500 mg/ Dextrose 250 mls @ 250 mls/hr 11/04/17 10:00 11/04/17 10 :17 IVPB 250 mls/hr DAILY [facility] Administration CEFTRIAXONE 1 G/50 ML PREMIX 50 mls @ 100 mls/hr 11/04/17 10:00 11/04/17 10: 18 Ceftriaxone 1 Gm-D5w Bag IVPB 100 mls/hr DAILY [facility] Administration Isosorbide Mononitrate 30 mg 11/04/17 10:00 11/04/17 10:18 Imdur - PO 30 mg DAILY [facility] Administration Lisinopril 5 mg 11/04/17 10:00 11/04/17 10:18 Prinivil PO 5 mg DAILY [facility] Administration Non-Formulary Medication 50 mg 11/04/17 10:00 Mirabegron [Myrbetriq] PO DAILY [facility] Ofloxacin 2 drop 11/04/17 14:00 Ocuflox 0.3% Eye Drops - OU Q4HWA [facility] Polyethylene Glycol 17 gm 11/04/17 10:00 11/04/17 10:18 Miralax (For Daily Use) - PO 17 gm DAILY [facility] Administration Quetiapine Fumarate 12.5 mg 11/03/17 23:08 11/04/17 00:37 Seroquel - PO 12.5 mg HS [facility] Administration IMAGIN11/03/17 CXR -> no acute pathology 11/04/17 CXR -> no acute pathology ASSESSMENT/PLAN: 87M with PMH of CAD, htn, afib, DM, dementia, presents from [facility] with persistent cough productive of yellow sputum, admitted to observation for fever. # persistent cough - Influenza A&B (-) on 10/13/17. [facility] staff reported that influenza has been going around at the facility. - f/u Chest CT - start Flonase for possible post nasal drip - Day 1 of IV Ceftriaxone and IV Azithromycin # jonathan conjunctivitis - Ofloxacin eye drops started - 2 drops per eye q4hr x 5 days # afib - currently paced, so rate controlled - continue home meds of Coreg and Pradaxa # CAD - continue home meds of ASA, Imdur, Lisinopril, and Lipitor # urinary incontinence - continue home med of Myrbetriq # DM - BGMs - Novolog SSI # FEN - Fluids: po - Electrolytes: wnl, continue to monitor - Nutrition: diabetic, low sodium diet # Prophylaxis - DVT ppx with early ambulation and Pradaxa - deconditioning ppx with PT Visit type - Emergency Visit Emergency Visit: Yes ED Registration Date: 11/03/17 Care time: The patient presented to the Emergency Department on the above date and was hospitalized for further evaluation of their emergent condition. - New Patient This patient is new to me today: Yes Date on this admission: 11/04/17 - Critical Care Critical Care patient: No
[2017-11-04] MEDS: INSULIN SLIDING SCALE (NOVOLOG) 1 VIAL SQ SCH ×2 (17:02→22:13)
[2017-11-04] MEDS: OFLOXACIN 0.3% OPHTHALMIC SOLUTION 5 ML BOTTLE OU SCH ×3 (17:43→22:06)
[2017-11-04] MEDS: FLUTICASONE PROP 0.05% 16 GM NASAL SPRAY NS SCH (17:44)
[2017-11-04] MEDS: ATORVASTATIN CA 40 MG TABLET (FP) PO SCH (22:05)
[2017-11-04] MEDS: DOCUSATE SODIUM 100 MG CAPSULE (FP) PO SCH (22:05)
[2017-11-05] MEDS: INSULIN SLIDING SCALE (NOVOLOG) 1 VIAL SQ SCH ×4 (06:10→22:09)
[2017-11-05] MEDS: OFLOXACIN 0.3% OPHTHALMIC SOLUTION 5 ML BOTTLE OU SCH ×5 (06:10→21:58)
--- NOTE | 2017-11-05 10:07 | PN ---
Progress Note (short form) - Note Progress Note: c/o cough now productive of yellow sputum. was coughing throughout the night. denies CP, SOB, fever, chills, N/V/C/D Current Medications Generic Name Dose Route Start Last Admin Trade Name Freq PRN Reason Stop Dose Admin Acetaminophen 650 mg 11/03/17 23:06 Tylenol - PO Q6H PRN FEVER Aspirin 81 mg 11/04/17 10:00 11/04/17 10:18 Asa - PO 81 mg DAILY [facility] Administration Atorvastatin Calcium 40 mg 11/04/17 22:00 11/04/17 22:05 Lipitor - PO 40 mg HS [facility] Administration Carvedilol 12.5 mg 11/03/17 23:15 11/04/17 22:05 Coreg - PO 12.5 mg BID [facility] Administration Dabigatran 150 mg 11/03/17 23:15 11/04/17 22:05 Pradaxa - PO 150 mg BID [facility] Administration Docusate Sodium 200 mg 11/04/17 22:00 11/04/17 22:05 Colace - PO 200 mg HS [facility] Administration Fluticasone Propionate 2 spray 11/04/17 13:45 11/04/17 17:44 Flonase - NS 2 sprays DAILY [facility] Administration Furosemide 20 mg 11/04/17 10:00 11/04/17 10:18 Lasix - PO 20 mg DAILY [facility] Administration Azithromycin 500 mg/ Dextrose 250 mls @ 250 mls/hr 11/04/17 10:00 11/04/17 10 :17 IVPB 250 mls/hr DAILY [facility] Administration CEFTRIAXONE 1 G/50 ML PREMIX 50 mls @ 100 mls/hr 11/04/17 10:00 11/04/17 10: 18 Ceftriaxone 1 Gm-D5w Bag IVPB 100 mls/hr DAILY [facility] Administration Insulin Aspart 1 vial 11/04/17 16:30 11/05/17 06:10 Novolog Vial Sliding Scale - SQ 2 unit ACHS FRANCINE Administration Protocol Isosorbide Mononitrate 30 mg 11/04/17 10:00 11/04/17 10:18 Imdur - PO 30 mg DAILY [facility] Administration Lisinopril 5 mg 11/04/17 10:00 11/04/17 10:18 Prinivil PO 5 mg DAILY [facility] Administration Non-Formulary Medication 50 mg 11/04/17 10:00 Mirabegron [Myrbetriq] PO DAILY [facility] Ofloxacin 2 drop 11/04/17 14:00 11/05/17 06:10 Ocuflox 0.3% Eye Drops - OU 2 drop Q4HWA [facility] Administration Polyethylene Glycol 17 gm 11/04/17 10:00 11/04/17 10:18 Miralax (For Daily Use) - PO 17 gm DAILY [facility] Administration Quetiapine Fumarate 12.5 mg 11/03/17 23:08 11/04/17 22:05 Seroquel - PO 12.5 mg HS [facility] Administration Last Vital Signs Temp Pulse Resp BP Pulse Ox 98.9 F 62 20 100/54 95 11/05/17 09:27 11/05/17 09:27 11/05/17 09:27 11/05/17 09:27 11/04/17 09:00 General NAD HEENT R eye injected conjunctiva. L eye clear, no purulent drainage CV S1 S2 irregular Lungs CTA B/L no wheezing/rales/rhonchi ABdomen soft nT/ND Extremities no pedal edema Microbiology 11/03/17 18:20 Blood Culture - Preliminary Blood - Peripheral Venous NO GROWTH OBTAINED AFTER 24 HOURS, INCUBATION TO CONTINUE FOR 4 DAYS. 11/03/17 18:20 Blood Culture - Preliminary Blood - Peripheral Venous NO GROWTH OBTAINED AFTER 24 HOURS, INCUBATION TO CONTINUE FOR 4 DAYS. ASSESSMENT AND PLAN: 86yo M with PMH CAD, HTN, afib on pradaxa, dyslipidemia, s/p PPM was sent to the ER after noted to be tachypnic at the SNF 1. Cough- persistent cough. 3rd Hospital visit this month for this symptom. has been treated with lasix. was refusing CT yesterday. now is agreeable. will obtain one today to better image lungs. afebrile. on Ceftriaxone/azithromycin day 3. start chest PT. cont flonase and nebs prn. saturating well on RA. flu swab not available. low suspicion for flu. 2. B/L conjunctivitis- on oflaxacin ggt 2 drops Q6H D2 of 5 days. 3. afib- currently paced. cont coreg and pradaxa 4. CAD- on asa, imdur, acei, statin 5. HTN-controlled. 6. Urinary incontinence- mybertriq 7. DM- cont iss, BGM 8. DVT ppx- EAM Visit type - Emergency Visit Emergency Visit: Yes ED Registration Date: 11/03/17 Care time: The patient presented to the Emergency Department on the above date and was hospitalized for further evaluation of their emergent condition. - New Patient This patient is new to me today: No - Critical Care Critical Care patient: No - Discharge Referral Referred to [facility] No
[2017-11-05] MEDS ORDERED: PT OWN MED DRAWER 7, Y5N ONE ×4 (10:28→21:56)
[2017-11-05] MEDS: CEFTRIAXONE 1 G/50 ML PREMIX 50 ML IVPB SCH (10:44)
[2017-11-05] MEDS: DABIGATRAN ETEXILATE MESYLATE 150 MG CAPSULE PO SCH ×3 (10:51→21:57)
[2017-11-05] MEDS: AZITHROMYCIN IVPB 500 MG in DEXTROSE 5%-WATER - 250 ML IVPB SCH (11:10)
[2017-11-05] MEDS: FLUTICASONE PROP 0.05% 16 GM NASAL SPRAY NS SCH (14:39)
[2017-11-05] MEDS: ASPIRIN 81 MG CHEWABLE TABLETS PO SCH (14:40)
[2017-11-05] MEDS: LISINOPRIL 5 MG TABLET (FP) PO SCH (14:40)
[2017-11-05] MEDS: FUROSEMIDE 20 MG TABLET (FP) PO SCH (14:41)
[2017-11-05] MEDS: ISOSORBIDE MONONITRATE 30 MG TAB.SR.24H (FP) PO SCH (14:41)
[2017-11-05] MEDS: POLYETHYLENE GLYCOL 3350 119 GM BTL PO SCH (14:41)
[2017-11-05] MEDS: CARVEDILOL 12.5 MG TABLET (FP) PO SCH ×2 (14:41→21:58)
[2017-11-05] MEDS: DOCUSATE SODIUM 100 MG CAPSULE (FP) PO SCH (21:57)
[2017-11-05] MEDS: ATORVASTATIN CA 40 MG TABLET (FP) PO SCH (21:57)
[2017-11-05] MEDS: QUEtiapine FUMARATE 25 MG TABLET (FP) PO SCH (21:58)
[2017-11-06] MEDS: OFLOXACIN 0.3% OPHTHALMIC SOLUTION 5 ML BOTTLE OU SCH ×5 (06:08→21:50)
[2017-11-06] MEDS: INSULIN SLIDING SCALE (NOVOLOG) 1 VIAL SQ SCH ×4 (06:08→21:49)
[2017-11-06] MEDS ORDERED: PT OWN MED DRAWER 7, Y5N ONE ×2 (06:12→11:37)
[2017-11-06] MEDS: CARVEDILOL 12.5 MG TABLET (FP) PO SCH ×2 (11:40→21:40)
[2017-11-06] MEDS: ASPIRIN 81 MG CHEWABLE TABLETS PO SCH (11:41)
[2017-11-06] MEDS: FUROSEMIDE 20 MG TABLET (FP) PO SCH (11:41)
[2017-11-06] MEDS: ISOSORBIDE MONONITRATE 30 MG TAB.SR.24H (FP) PO SCH (11:41)
[2017-11-06] MEDS: DABIGATRAN ETEXILATE MESYLATE 150 MG CAPSULE PO SCH ×2 (11:41→21:40)
[2017-11-06] MEDS: AZITHROMYCIN IVPB 500 MG in DEXTROSE 5%-WATER - 250 ML IVPB SCH (11:41)
[2017-11-06] MEDS: LISINOPRIL 5 MG TABLET (FP) PO SCH (11:41)
[2017-11-06] MEDS: CEFTRIAXONE 1 G/50 ML PREMIX 50 ML IVPB SCH (11:41)
[2017-11-06] MEDS: POLYETHYLENE GLYCOL 3350 119 GM BTL PO SCH (11:42)
[2017-11-06] MEDS: FLUTICASONE PROP 0.05% 16 GM NASAL SPRAY NS SCH (11:42)
--- NOTE | 2017-11-06 11:52 | PN ---
Teaching Attending Note Name of Resident: Manfred Wesley ATTENDING PHYSICIAN STATEMENT I saw and evaluated the patient. I reviewed the resident's note and discussed the case with the resident. I agree with the resident's findings and plan as documented. SUBJECTIVE:continues to have cough but less sputum production. denies CP, fever , chills, N/V/C/D OBJECTIVE: Last Vital Signs Temp Pulse Resp BP Pulse Ox 98.3 F 74 18 117/63 94 L 11/06/17 08:03 11/06/17 08:03 11/06/17 08:03 11/06/17 08:03 11/05/17 17:00 General NAD HEENT conjunctiva clear Lungs CTA B/L no wheezing/rales/rhonchi ASSESSMENT AND PLAN: 86yo M with PMH CAD, HTN, afib on pradaxa, dyslipidemia, s/p PPM was sent to the ER after noted to be tachypnic at the SNF 1. Cough- persistent cough. 3rd Hospital visit this month for this symptom. finally agreed to CT chest which is clear of any nodules/infiltrate/fluid. will have him complete empiric coverage for PNA. on Ceftriaxone/azithromycin day 4. will complete 5 day course. on flonase for possible post-nasal drip for 2 weeks. 2. B/L conjunctivitis-improved. on oflaxacin ggt 2 drops Q6H D3 of 5 days. 3. afib- currently paced. cont coreg and pradaxa 4. CAD- on asa, imdur, acei, statin 5. HTN-controlled. 6. Urinary incontinence- mybertriq 7. DM- cont iss, BGM 8. DVT ppx- EAM 9. d/c to assisted living. should follow up [facility] PMD this week to evaluate for resolution of symptoms and possible further workup
--- NOTE | 2017-11-06 12:55 | DS ---
Physical Exam: SUBJECTIVE: Patient seen and examined at bedside. No new complaints. No overnight events. Feels much better overall. Ready to go home. Denies CP,LITTLE, SOB , abdominal pain, n/v. OBJECTIVE: Vital Signs Period Temp Pulse Resp BP Sys/Higgins Pulse Ox Last 24 Hr 97.9 F-99.0 F 71-84 18-20 106-138/50-68 94 PHYSICAL EXAM GENERAL: Awake and alert. ENT: moist mucous membranes. NECK: supple, no jvd LUNGS: CTAB, No wheezing or rales. HEART:irregularly irregular. ABDOMEN: Soft,NT/ND, NL BS EXTREMITIES: 2+ pulses, warm, well-perfused, no edema. LABS Laboratory Results - last 24 hr 11/05/17 11/05/17 11/06/17 16:37 22:02 06:08 POC Glucometer 134 147 133 11/06/17 11:48 POC Glucometer 192 HOSPITAL COURSE: 86yo M with PMH CAD, HTN, afib on pradaxa, dyslipidemia, s/p PPM was sent to the ER after noted to be tachypnic at the SNF. Complained of cough that has persisted for several months. He was started on empiric abx coverage for PNA consisting of Ceftriaxone and Azithromycin. He will complete of 5 day course of antibiotics. CT chest was ordered to further evaluated for lung pathology but patient refused on several attempts. He was also started on Flonase daily for possible post nasal drip as the cause of chronic cough. He was noted to have bilateral conjunctivitis stated on oflaxacin ggt. This has improved an will continue for 3 more days. In terms of his pre-existing conditions, his afib was rate controlled with coreg gill AC continued with predaxa. In terms of diabetes he was given diabetic diet and coverage with ISS. He has been instructed to resume all home medications as previously prescribed. Patient is stable at time of discharge. He will need to follow up with primary doctor in one week and he should also have CT chest if cough persist. Date of Admission:11/05/17 Date of Discharge: 11/06/17 Minutes to complete discharge: 56 Discharge Summary Reason For Visit: FEVER UNSPEC/PNEUMONIA Current Active Problems Fever, unspecified (Acute) Pneumonia (Acute) Condition: Stable - Instructions Diet, Activity, Other Instructions: You have been treated for acute upper respiratory infection. You have been started on a new medications -Flonase nasal spray to be used daily by 2 spays in nostrils. -Azithromycin 500mg and Keflex 500mg by mouth for one more day. -Ciprofloxacin eye drops - 2 drops in each eye while awake every 4 hours for 3 more days. -resume all other home medications as you have been previously instructed. You can continue with diabetic diet. Increase activity as tolerated. Follow up with your primary doctor in one week. If you symptoms worsen or you develop fever, chills, body aches, nausea or vomiting please return to ED immediately. Disposition: HALF-WAY FACILITY - Home Medications Comprehensive Discharge Medication List: Ambulatory Orders Acetaminophen 650 mg PO Q6H PRN 10/22/17 Albuterol Sulfate Inhaler - [Ventolin HFA Inhaler -] 2 inh PO QID PRN 10/22/17 Aspirin 81 mg PO DAILY 10/22/17 Carvedilol 12.5 mg PO BID 10/22/17 Cholecalciferol (Vitamin D3) [Vitamin D -] 50,000 unit PO MONTHLY 10/22/17 Dabigatran Etexilate Mesylate [Pradaxa -] 150 mg PO BID 10/22/17 Isosorbide Mononitrate [Imdur -] 30 mg PO DAILY 10/22/17 Lisinopril 5 mg PO DAILY 10/22/17 Metformin HCl 500 mg PO DAILY 10/22/17 Mirabegron [Myrbetriq] 50 mg PO DAILY 10/22/17 Nitroglycerin [Nitrostat] 0.4 mg SL PRN PRN 10/22/17 Polyethylene Glycol 3350 [Glycolax] 1 scoop PO DAILY 10/22/17 Potassium Chloride [Klor-Con M10] 10 meq PO DAILY 10/22/17 Quetiapine Fumarate [Seroquel -] 12.5 mg PO HS 10/22/17 Atorvastatin Ca [Lipitor] 40 mg PO HS 10/23/17 Docusate Sodium [Colace -] 200 mg PO HS 10/23/17 Mag Hydrox/Aluminum Hyd/Simeth [Rulox Suspension] 10 ml PO TID 10/23/17 Furosemide [Lasix -] 20 mg PO DAILY #30 tablet 10/24/17 Azithromycin 500 mg PO DAILY #1 tablet 11/06/17 Fluticasone Prop 0.05% Nasal [Flonase -] 2 spray NS DAILY spray 11/06/17 This patient is new to me today: Yes Date on this admission: 11/06/17 Emergency Visit: Yes ED Registration Date: 11/05/17 Care time: The patient presented to the Emergency Department on the above date and was hospitalized for further evaluation of their emergent condition. Critical Care patient: No - Discharge Referral Referred to [facility] No
[2017-11-06] MEDS: DOCUSATE SODIUM 100 MG CAPSULE (FP) PO SCH (21:40)
[2017-11-06] MEDS: ATORVASTATIN CA 40 MG TABLET (FP) PO SCH (21:40)
[2017-11-06] MEDS: QUEtiapine FUMARATE 25 MG TABLET (FP) PO SCH (21:41)
[2017-11-06] MEDS ORDERED: INSULIN (NOVOLOG) ASPART 100 UNITS/ML 10ML VIAL ONE (21:48)
[2017-11-07] MEDS: OFLOXACIN 0.3% OPHTHALMIC SOLUTION 5 ML BOTTLE OU SCH ×5 (06:19→21:03)
[2017-11-07] MEDS ORDERED: PT OWN MED DRAWER 7, Y5N ONE ×4 (06:19→21:00)
[2017-11-07] MEDS: INSULIN SLIDING SCALE (NOVOLOG) 1 VIAL SQ SCH ×4 (06:20→21:02)
[2017-11-07] MEDS: LISINOPRIL 5 MG TABLET (FP) PO SCH (09:17)
[2017-11-07] MEDS: ASPIRIN 81 MG CHEWABLE TABLETS PO SCH (09:17)
[2017-11-07] MEDS: FUROSEMIDE 20 MG TABLET (FP) PO SCH (09:17)
[2017-11-07] MEDS: ISOSORBIDE MONONITRATE 30 MG TAB.SR.24H (FP) PO SCH (09:17)
[2017-11-07] MEDS: CARVEDILOL 12.5 MG TABLET (FP) PO SCH ×2 (09:17→21:02)
[2017-11-07] MEDS: DABIGATRAN ETEXILATE MESYLATE 150 MG CAPSULE PO SCH ×2 (09:17→21:01)
[2017-11-07] MEDS: POLYETHYLENE GLYCOL 3350 119 GM BTL PO SCH (09:18)
[2017-11-07] MEDS: FLUTICASONE PROP 0.05% 16 GM NASAL SPRAY NS SCH (09:18)
[2017-11-07] MEDS: CEFTRIAXONE 1 G/50 ML PREMIX 50 ML IVPB SCH (10:00)
[2017-11-07] MEDS ORDERED: INSULIN (NOVOLOG) ASPART 100 UNITS/ML 10ML VIAL ONE ×3 (11:19→21:01)
[2017-11-07] MEDS: AZITHROMYCIN IVPB 500 MG in DEXTROSE 5%-WATER - 250 ML IVPB SCH (11:21)
--- NOTE | 2017-11-07 14:49 | PN ---
Teaching Attending Note Name of Resident: Mary Rios ATTENDING PHYSICIAN STATEMENT I saw and evaluated the patient. I reviewed the resident's note and discussed the case with the resident. I agree with the resident's findings and plan as documented. SUBJECTIVE:continues to have cough but no longer productive. denies Cp, SOB, fever, chills, n/V/c/D OBJECTIVE: Last Vital Signs Temp Pulse Resp BP Pulse Ox 98.4 F 80 20 114/63 95 11/07/17 06:02 11/07/17 06:02 11/07/17 06:02 11/07/17 06:02 11/07/17 06:52 General NAD HEENT conjunctiva clear Lungs CTA B/L no wheezing/rales/rhonchi ASSESSMENT AND PLAN: 86yo M with PMH CAD, HTN, afib on pradaxa, dyslipidemia, s/p PPM was sent to the ER after noted to be tachypnic at the SNF 1. Cough- persistent cough. CT chest negative. complete empiric coverage for PNA. on Ceftriaxone/azithromycin day 4. will complete 5 day course. on flonase for possible post-nasal drip for 2 weeks. 2. B/L conjunctivitis-improved. on oflaxacin ggt 2 drops Q6H D4 of 5 days. 3. afib- currently paced. cont coreg and pradaxa 4. CAD- on asa, imdur, acei, statin 5. HTN-controlled. 6. Urinary incontinence- mybertriq 7. DM- cont iss, BGM 8. DVT ppx- EAM 9. [facility] facility. was able to walk 50 ft. facility requesting NIKKIE to be completed prior to placement at assisted living. TELMA to be sent today
--- NOTE | 2017-11-07 17:03 | PN ---
Physical Exam: SUBJECTIVE: Patient seen and examined. Pt reports cough persists, but is no longer productive. Pt denies chest pain, dyspnea, abdominal pain, fever, chills. OBJECTIVE: Vital Signs Period Temp Pulse Resp BP Sys/Higgins Pulse Ox Last 24 Hr 97.5 F-98.4 F 77-86 20-20 114-160/63-87 95-95 GENERAL: AAOx1 to self, in NAD. EYES: conjunctiva clear, no discharge. LUNGS: Breath sounds equal, clear to auscultation bilaterally, no wheezes, no crackles, no accessory muscle use. HEART: irregularly irregular, +S1/S2, no murmur appreciated. ABDOMEN: Soft, nontender, nondistended, no guarding. EXTREMITIES: Warm, well-perfused, no edema. PSYCH: Normal mood, normal affect. SKIN: Warm, dry, normal turgor, no rashes or lesions noted Laboratory Results - last 24 hr 11/06/17 11/07/17 11/07/17 21:47 06:08 11:09 POC Glucometer 164 161 241 Active Medications Generic Name Dose Route Start Last Admin Trade Name Freq PRN Reason Stop Dose Admin Acetaminophen 650 mg 11/03/17 23:06 Tylenol - PO Q6H PRN FEVER Aspirin 81 mg 11/04/17 10:00 11/07/17 09:17 Asa - PO 81 mg DAILY [facility] Administration Atorvastatin Calcium 40 mg 11/04/17 22:00 11/06/17 21:40 Lipitor - PO 40 mg HS [facility]INE Administration Carvedilol 12.5 mg 11/03/17 23:15 11/07/17 09:17 Coreg - PO 12.5 mg BID FR[facility]INE Administration Dabigatran 150 mg 11/03/17 23:15 11/07/17 09:17 Pradaxa - PO 150 mg BID FRANCINE Administration Docusate Sodium 200 mg 11/04/17 22:00 11/06/17 21:40 Colace - PO 200 mg HS FRANCINE Administration Fluticasone Propionate 2 spray 11/04/17 13:45 11/07/17 09:18 Flonase - NS 2 sprays DAILY [facility] Administration Furosemide 20 mg 11/04/17 10:00 11/07/17 09:17 Lasix - PO 20 mg DAILY [facility]INE Administration Azithromycin 500 mg/ Dextrose 250 mls @ 250 mls/hr 11/04/17 10:00 11/07/17 11 :21 IVPB 250 mls/hr DAILY [facility] Administration CEFTRIAXONE 1 G/50 ML PREMIX 50 mls @ 100 mls/hr 11/04/17 10:00 11/07/17 10: 00 Ceftriaxone 1 Gm-D5w Bag IVPB 100 mls/hr DAILY [facility] Administration Insulin Aspart 1 vial 11/04/17 16:30 11/07/17 11:22 Novolog Vial Sliding Scale - SQ 4 unit ACHS FRANCINE Administration Protocol Isosorbide Mononitrate 30 mg 11/04/17 10:00 11/07/17 09:17 Imdur - PO 30 mg DAILY [facility] Administration Lisinopril 5 mg 11/04/17 10:00 11/07/17 09:17 Prinivil PO 5 mg DAILY [facility] Administration Non-Formulary Medication 50 mg 11/04/17 10:00 Mirabegron [Myrbetriq] PO DAILY [facility] Ofloxacin 2 drop 11/04/17 14:00 11/07/17 14:40 Ocuflox 0.3% Eye Drops - OU Not Given Q4HWA [facility] Polyethylene Glycol 17 gm 11/04/17 10:00 11/07/17 09:18 Miralax (For Daily Use) - PO 17 gm DAILY [facility] Administration Quetiapine Fumarate 12.5 mg 11/03/17 23:08 11/06/17 21:41 Seroquel - PO 12.5 mg HS FRANCINE Administration IMAGIN11/06/[address] -> no acute findings ASSESSMENT/PLAN: 87M with PMH of CAD, htn, afib, DM, dementia, presents from [facility] with persistent cough productive of yellow sputum. # persistent cough - possibly 2/2 CAP - Day 4/5 of IV Ceftriaxone and IV Azithromycin - start Flonase for possible post nasal drip, trial for 2 weeks then re- assess # jonathan conjunctivitis - clinically improved - Day 4/5 of Ofloxacin eye drops # afib - currently paced, so rate controlled - continue home meds of Coreg and Pradaxa # CAD - continue home meds of ASA, Imdur, Lisinopril, and Lipitor # urinary incontinence - continue home med of Myrbetriq # DM - BGMs - Novolog SSI # FEN - Fluids: po - Electrolytes: wnl - Nutrition: diabetic, low sodium diet # Prophylaxis - DVT ppx with early ambulation and Pradaxa - deconditioning ppx with PT # dispo - pt walked 60 ft with PT today - discharge to [facility] tomorrow Visit type - Emergency Visit Emergency Visit: Yes ED Registration Date: 11/05/17 Care time: The patient presented to the Emergency Department on the above date and was hospitalized for further evaluation of their emergent condition. - New Patient This patient is new to me today: No - Critical Care Critical Care patient: No
[2017-11-07] MEDS: ATORVASTATIN CA 40 MG TABLET (FP) PO SCH (21:02)
[2017-11-07] MEDS: DOCUSATE SODIUM 100 MG CAPSULE (FP) PO SCH (21:02)
[2017-11-07] MEDS: QUEtiapine FUMARATE 25 MG TABLET (FP) PO SCH (21:03)
[2017-11-08] MEDS: OFLOXACIN 0.3% OPHTHALMIC SOLUTION 5 ML BOTTLE OU SCH ×2 (06:15→09:36)
[2017-11-08] MEDS: INSULIN SLIDING SCALE (NOVOLOG) 1 VIAL SQ SCH (06:16)
[2017-11-08] MEDS ORDERED: INSULIN (NOVOLOG) ASPART 100 UNITS/ML 10ML VIAL ONE (06:29)
[2017-11-08 08:23] VITALS: BP 122/76; PULSE 84; TEMP 97.6
[2017-11-08] MEDS ORDERED: PT OWN MED DRAWER 7, Y5N ONE (09:30)
[2017-11-08] MEDS: DABIGATRAN ETEXILATE MESYLATE 150 MG CAPSULE PO SCH (09:36)
[2017-11-08] MEDS: FLUTICASONE PROP 0.05% 16 GM NASAL SPRAY NS SCH (09:36)
[2017-11-08] MEDS: CARVEDILOL 12.5 MG TABLET (FP) PO SCH (09:36)
[2017-11-08] MEDS: ISOSORBIDE MONONITRATE 30 MG TAB.SR.24H (FP) PO SCH (09:36)
[2017-11-08] MEDS: FUROSEMIDE 20 MG TABLET (FP) PO SCH (09:36)
[2017-11-08] MEDS: LISINOPRIL 5 MG TABLET (FP) PO SCH (09:36)
[2017-11-08] MEDS: ASPIRIN 81 MG CHEWABLE TABLETS PO SCH (09:36)
--- NOTE | 2017-11-08 09:36 | PN ---
Teaching Attending Note Name of Resident: Mary Rios ATTENDING PHYSICIAN STATEMENT I saw and evaluated the patient. I reviewed the resident's note and discussed the case with the resident. I agree with the resident's findings and plan as documented with exceptions mentioned below. SUBJECTIVE: Patient seen and examined. Feels tired, no new complaints otherwise, comfortable in wheelchair. OBJECTIVE: Vital Signs Period Temp Pulse Resp BP Sys/Higgins Pulse Ox Last 24 Hr 97.5 F-99.3 F 75-87 18-20 122-160/65-87 95-95 Intake & Output 11/05/17 11/06/17 11/07/17 11/08/17 23:59 23:59 23:59 23:59 Intake Total 1700 1250 1020 200 Output Total 975 1300 Balance 725 -50 1020 200 General: sitting in wheelchair no acute distress Chest: no rales or wheezing, mild dry cough on exam, positive air entry bilaterally extremities: no edema HEENT: no conjunctival erythema noted Home Medication List Medication Instructions Recorded Confirmed Type Acetaminophen 650 mg PO Q6H PRN 10/22/17 11/03/17 History Albuterol Sulfate Inhaler - 2 inh PO QID PRN 10/22/17 11/03/17 History [Ventolin HFA Inhaler -] Aspirin 81 mg PO DAILY 10/22/17 11/03/17 History Carvedilol 12.5 mg PO BID 10/22/17 11/03/17 History Cholecalciferol (Vitamin D3) 50,000 unit PO MONTHLY 10/22/17 11/03/17 History [Vitamin D -] Dabigatran Etexilate Mesylate 150 mg PO BID 10/22/17 11/03/17 History [Pradaxa -] Isosorbide Mononitrate [Imdur -] 30 mg PO DAILY 10/22/17 11/03/17 History Lisinopril 5 mg PO DAILY 10/22/17 11/03/17 History Metformin HCl 500 mg PO DAILY 10/22/17 11/03/17 History Mirabegron [Myrbetriq] 50 mg PO DAILY 10/22/17 11/03/17 History Nitroglycerin [Nitrostat] 0.4 mg SL PRN PRN 10/22/17 11/03/17 History Polyethylene Glycol 3350 [Glycolax] 1 scoop PO DAILY 10/22/17 11/03/17 History Potassium Chloride [Klor-Con M10] 10 meq PO DAILY 10/22/17 11/03/17 History Quetiapine Fumarate [Seroquel -] 12.5 mg PO HS 10/22/17 11/03/17 History Atorvastatin Ca [Lipitor] 40 mg PO HS 10/23/17 11/03/17 History Docusate Sodium [Colace -] 200 mg PO HS 10/23/17 11/03/17 History Mag Hydrox/Aluminum Hyd/Simeth 10 ml PO TID 10/23/17 11/03/17 History [Rulox Suspension] Active Medications Generic Name Dose Route Start Last Admin Trade Name Freq PRN Reason Stop Dose Admin Acetaminophen 650 mg 11/03/17 23:06 Tylenol - PO Q6H PRN FEVER Aspirin 81 mg 11/04/17 10:00 11/07/17 09:17 Asa - PO 81 mg DAILY FRANCINE Administration Atorvastatin Calcium 40 mg 11/04/17 22:00 11/07/17 21:02 Lipitor - PO 40 mg HS FRANCINE Administration Carvedilol 12.5 mg 11/03/17 23:15 11/07/17 21:02 Coreg - PO 12.5 mg BID FRANCINE Administration Dabigatran 150 mg 11/03/17 23:15 11/07/17 21:01 Pradaxa - PO 150 mg BID FRANCINE Administration Docusate Sodium 200 mg 11/04/17 22:00 11/07/17 21:02 Colace - PO 200 mg HS FRANCINE Administration Fluticasone Propionate 2 spray 11/04/17 13:45 11/07/17 09:18 Flonase - NS 2 sprays DAILY FRANCINE Administration Furosemide 20 mg 11/04/17 10:00 11/07/17 09:17 Lasix - PO 20 mg DAILY FRANCINE Administration Azithromycin 500 mg/ Dextrose 250 mls @ 250 mls/hr 11/04/17 10:00 11/07/17 11 :21 IVPB 250 mls/hr DAILY FRANCINE Administration CEFTRIAXONE 1 G/50 ML PREMIX 50 mls @ 100 mls/hr 11/04/17 10:00 11/07/17 10: 00 Ceftriaxone 1 Gm-D5w Bag IVPB 100 mls/hr DAILY FRANCINE Administration Insulin Aspart 1 vial 11/04/17 16:30 11/08/17 06:16 Novolog Vial Sliding Scale - SQ Not Given ACHS [facility] Protocol Isosorbide Mononitrate 30 mg 11/04/17 10:00 11/07/17 09:17 Imdur - PO 30 mg DAILY FRANCINE Administration Lisinopril 5 mg 11/04/17 10:00 11/07/17 09:17 Prinivil PO 5 mg DAILY FRANCINE Administration Non-Formulary Medication 50 mg 11/04/17 10:00 Mirabegron [Myrbetriq] PO DAILY FRANCINE Ofloxacin 2 drop 11/04/17 14:00 11/08/17 06:15 Ocuflox 0.3% Eye Drops - OU 2 drop Q4HWA FRANCINE Administration Polyethylene Glycol 17 gm 11/04/17 10:00 11/07/17 09:18 Miralax (For Daily Use) - PO 17 gm DAILY FRANCINE Administration Quetiapine Fumarate 12.5 mg 11/03/17 23:08 11/07/17 21:03 Seroquel - PO 12.5 mg HS FRANCINE Administration Laboratory Results - last 24 hr 11/07/17 11/07/17 11/07/17 11:09 17:14 20:57 POC Glucometer 241 217 178 11/08/17 06:13 POC Glucometer 139 Microbiology 11/03/17 18:20 Blood - Peripheral Venous Blood Culture - Preliminary NO GROWTH OBTAINED AFTER 96 HOURS, INCUBATION TO CONTINUE FOR 1 DAYS. 11/03/17 18:20 Blood - Peripheral Venous Blood Culture - Preliminary NO GROWTH OBTAINED AFTER 96 HOURS, INCUBATION TO CONTINUE FOR 1 DAYS. 11/03/17 18:20 Urine - Urine Clean Catch Urine Culture - Final ASSESSMENT AND PLAN: 86yo M with PMH CAD, HTN, afib on pradaxa, dyslipidemia, s/p PPM was sent to the ER after noted to be tachypnic at the SNF -Possible cough -Suspected community acquired Pneumonia -Bilateral conjunctivitis, resolved -Atrial fibrillation s/p PPM -CAD -HTN -Urinary incontinence -NIDDM Plan Finishes 5 days of ceftriaxone/azithromycin today. No new fevers chills or new concerns. Flonase spray. s/p 5 days of ofloxacin eye drops, no further need Resume home meds. D/c to [facility] today. Plan discussed with patient.
[2017-11-08] MEDS: POLYETHYLENE GLYCOL 3350 119 GM BTL PO SCH (09:37)
[2017-11-08] MEDS ORDERED: CEPHALEXIN MONOHYDRATE 500 MG CAPSULE (UD) PO SCH (10:00)
[2017-11-08] MEDS ORDERED: AZITHROMYCIN 250 MG TABLET PO ONE (10:30)
--- NOTE | 2017-11-08 13:30 | EKG ---
Test Reason : Blood Pressure : / mmHG Vent. Rate : 089 BPM Atrial Rate : 098 BPM P-R Int : 000 ms QRS Dur : 132 ms QT Int : 372 ms P-R-T Axes : 000 -40 078 degrees QTc Int : 452 ms POOR DATA QUALITY, INTERPRETATION MAY BE ADVERSELY AFFECTED UNDETERMINED RHYTHM LEFT AXIS DEVIATION LEFT BUNDLE BRANCH BLOCK ABNORMAL ECG WHEN COMPARED WITH ECG OF 24-OCT-2017 10:35, CURRENT UNDETERMINED RHYTHM PRECLUDES RHYTHM COMPARISON, NEEDS REVIEW Confirmed by MD Armendariz Daniel ([id number]) on 11/08/2017 1:30:32 PM Referred By: Confirmed By:Jake Armendariz MD
--- NOTE | 2017-11-08 16:05 | DS ---
Physical Exam: SUBJECTIVE: Patient seen and examined. Pt has no c/o. Pt denies chest pain, dyspnea, abdominal pain, fever, chills. OBJECTIVE: Vital Signs Period Temp Pulse Resp BP Sys/Higgins Pulse Ox Last 24 Hr 97.6 F-99.3 F 75-87 18-20 122-143/65-77 95-95 PHYSICAL EXAM GENERAL: AAOx1 to self, in NAD. EYES: conjunctiva clear, no discharge. LUNGS: Breath sounds equal, clear to auscultation bilaterally, no wheezes, no crackles, no accessory muscle use. HEART: irregularly irregular, +S1/S2, no murmur appreciated. ABDOMEN: Soft, nontender, nondistended, no guarding. EXTREMITIES: Warm, well-perfused, no edema. PSYCH: Normal mood, normal affect. SKIN: Warm, dry, normal turgor, no rashes or lesions noted LABS Laboratory Results - last 24 hr 11/07/17 11/07/17 11/08/17 17:14 20:57 06:13 POC Glucometer 217 178 139 HOSPITAL COURSE: Date of Admission:11/05/17 Date of Discharge: 11/08/17 87M with PMH of CAD, htn, afib, DM, dementia, presents from [facility] with persistent cough productive of yellow sputum. Pt completed course of antibiotics for possible CAP. Pt presented with jonathan conjunctivitis, treated with Ofloacin eye drops and resolved. 11/03/17 CXR -> no acute pathology 11/04/17 CXR -> no acute pathology 11/05/[address] -> no acute findings Microbiology 11/03/17 18:20 Blood - Peripheral Venous Blood Culture - Final NO GROWTH AFTER 5 DAYS INCUBATION 11/03/17 18:20 Blood - Peripheral Venous Blood Culture - Final NO GROWTH AFTER 5 DAYS INCUBATION 11/03/17 18:20 Urine - Urine Clean Catch Urine Culture - Final Pt walked 60 ft with PT yesterday. Pt medically stable for discharge to [facility]. Minutes to complete discharge: 37 Discharge Summary Reason For Visit: FEVER UNSPEC/PNEUMONIA Condition: Stable - Instructions Diet, Activity, Other Instructions: You have been treated for persistent cough and possible pneumonia. Changes to your Medications include: - Take one last dose of antibiotic (Keflex) this evening, and then your course of antibiotics will be complete. - Flonase nasal spray to be used once daily by using 2 spays in each nostrils. Trial for 2 weeks (through 11/17/17), then reassess if your cough persists. - Resume all other home medications as you have been previously instructed. You can continue with diabetic diet. Increase activity as tolerated. Follow up with your primary doctor in one week. If your symptoms worsen or you develop fever, chills, body aches, nausea or vomiting please return to ED immediately. Disposition: CARE HOME FACILITY - Home Medications Comprehensive Discharge Medication List: Ambulatory Orders Acetaminophen 650 mg PO Q6H PRN 10/22/17 Albuterol Sulfate Inhaler - [Ventolin HFA Inhaler -] 2 inh PO QID PRN 10/22/17 Aspirin 81 mg PO DAILY 10/22/17 Carvedilol 12.5 mg PO BID 10/22/17 Cholecalciferol (Vitamin D3) [Vitamin D -] 50,000 unit PO MONTHLY 10/22/17 Dabigatran Etexilate Mesylate [Pradaxa -] 150 mg PO BID 10/22/17 Isosorbide Mononitrate [Imdur -] 30 mg PO DAILY 10/22/17 Lisinopril 5 mg PO DAILY 10/22/17 Metformin HCl 500 mg PO DAILY 10/22/17 Mirabegron [Myrbetriq] 50 mg PO DAILY 10/22/17 Nitroglycerin [Nitrostat] 0.4 mg SL PRN PRN 10/22/17 Polyethylene Glycol 3350 [Glycolax] 1 scoop PO DAILY 10/22/17 Potassium Chloride [Klor-Con M10] 10 meq PO DAILY 10/22/17 Quetiapine Fumarate [Seroquel -] 12.5 mg PO HS 10/22/17 Atorvastatin Ca [Lipitor] 40 mg PO HS 10/23/17 Docusate Sodium [Colace -] 200 mg PO HS 10/23/17 Mag Hydrox/Aluminum Hyd/Simeth [Rulox Suspension] 10 ml PO TID 10/23/17 Furosemide [Lasix -] 20 mg PO DAILY #30 tablet 10/24/17 Fluticasone Prop 0.05% Nasal [Flonase -] 2 spray NS DAILY spray 11/06/17 Cephalexin Monohydrate [Keflex -] 500 mg PO BID #1 capsule 11/08/17 Insulin Sliding Scale [Novolog Vial Sliding Scale -] 1 vial SQ ACHS units 11/08 This patient is new to me today: No Emergency Visit: Yes ED Registration Date: 11/05/17 Care time: The patient presented to the Emergency Department on the above date and was hospitalized for further evaluation of their emergent condition. Critical Care patient: No - Discharge Referral Referred to [facility] Med P.C.: No
== END 2017-11-08 11:05 | DRG 195 ==
LOC: JER 16:32 → JERBED 21:54 → J6S 11-04 03:11 → OBSVTOIN 11-05 10:03
PROVIDERS: ADMIT Internal Medicine; ATTEND Hospitalist
DX: J18.9 Pneumonia, unspecified organism (principal); I25.10 Atherosclerotic heart disease of native coronary artery without angina pectoris; I48.91 Unspecified atrial fibrillation; Z95.1 Presence of aortocoronary bypass graft; Z95.0 Presence of cardiac pacemaker; F03.90 Unspecified dementia, unspecified severity, without behavioral disturbance, psychotic disturbance, mood disturbance, and anxiety; I50.9 Heart failure, unspecified; R32 Unspecified urinary incontinence; I44.7 Left bundle-branch block, unspecified; E11.9 Type 2 diabetes mellitus without complications; Z79.84 Long term (current) use of oral hypoglycemic drugs; H10.89 Other conjunctivitis; N32.81 Overactive bladder; Z79.01 Long term (current) use of anticoagulants; E78.5 Hyperlipidemia, unspecified; I11.0 Hypertensive heart disease with heart failure
CPT/HCPCS: 36415; 71045-TC-FY; 71250-TC; 80053; 81003; 81015; 82550; 82803; 82962; 83605; 84484; 85025; 85610; 85730; 86850; 86900; 86901; 87040; 87086; 93005; 93010; 97116-GP; 97161-GP; 99281-25; G0378

== ENCOUNTER 2018-03-08 18:12 | Emergency (ER) | payer OTHER ==
--- NOTE | 2018-03-08 18:24 | PDOC ---
History of Present Illness - General History Source: Patient Exam Limitations: No Limitations - History of Present Illness Initial Comments: 03/08/18 19:50 The patient is a 87 year old male, with significant past medical history of CAD , afib, cabg, dementia presents to ER from [facility] , who presents to the ED complaining of nausea vomiting, and complaining of cough. It is noted that the patient did not specify if the vomit was nonbilious or nonbloody. The patient overall did not specify any other conditions at the moment. The patient denies chest pain, shortness of breath, headache or dizziness. Denies fever, chills, diarrhea and constipation. Denies dysuria, frequency, urgency and hematuria. Allergies: None reported Past surgical history: None reported Social History:None reported <Aubrey Perry - Last Filed: 03/08/18 19:50> <Fátima Monet - Last Filed: 03/09/18 02:03> - General Chief Complaint: Respiratory Stated Complaint: FEVER Time Seen by Provider: 03/08/18 18:24 Past History <Aubrey Perry - Last Filed: 03/08/18 19:50> - Past Medical History Cardiac Disorders: Yes (afib) COPD: No Dementia: Yes Diabetes: Yes Disorders: Yes (overactive bladder) HTN: Yes Hypercholesterolemia: Yes Psychiatric Problems: Yes (ANXIETY) - Surgical History Cardiac Surgery: Yes (pacemaker) - Suicide/Smoking/Psychosocial Hx Smoking History: Never smoked Have you smoked in the past 12 months: No Hx Alcohol Use: No Drug/Substance Use Hx: No Substance Use Type: None Hx Substance Use Treatment: No <Fátima Monet - Last Filed: 03/09/18 02:03> - Past Medical History Allergies/Adverse Reactions: Allergies Allergy/AdvReac Type Severity Reaction Status Date / Time No Known Allergies Allergy Verified 11/03/17 16:55 Home Medications: Ambulatory Orders Acetaminophen 650 mg PO Q6H PRN 10/22/17 Aspirin 81 mg PO DAILY 10/22/17 Carvedilol 12.5 mg PO BID 10/22/17 Dabigatran Etexilate Mesylate [Pradaxa -] 150 mg PO BID 10/22/17 Isosorbide Mononitrate [Imdur -] 30 mg PO DAILY 10/22/17 Lisinopril 2.5 mg PO DAILY 10/22/17 Mirabegron [Myrbetriq] 50 mg PO DAILY 10/22/17 Polyethylene Glycol 3350 [Glycolax] 1 scoop PO DAILY 10/22/17 Potassium Chloride [Klor-Con M10] 10 meq PO DAILY 10/22/17 Quetiapine Fumarate [Seroquel -] 12.5 mg PO HS 10/22/17 Atorvastatin Ca [Lipitor] 40 mg PO HS 10/23/17 Docusate Sodium [Colace -] 200 mg PO HS 10/23/17 Furosemide [Lasix -] 20 mg PO DAILY #30 tablet 10/24/17 Meclizine HCl 25 mg PO PRN 03/08/18 Review of Systems - Review of Systems Able to Perform ROS?: Yes Comments:: 03/08/18 19:51 GENERAL/CONSTITUTIONAL: No fever or chills. No weakness. HEAD, EYES, EARS, NOSE AND THROAT: No change in vision. No ear pain or discharge. No sore throat. CARDIOVASCULAR: No chest pain or shortness of breath RESPIRATORY: (+) Cough. No wheezing, or hemoptysis. GASTROINTESTINAL: (+) nausea, vomiting. No diarrhea or constipation. GENITOURINARY: No dysuria, frequency, or change in urination. MUSCULOSKELETAL: No joint or muscle swelling or pain. No neck or back pain. SKIN: No rash NEUROLOGIC: No headache, vertigo, loss of consciousness, or change in strength/ sensation. ENDOCRINE: No increased thirst. No abnormal weight change HEMATOLOGIC/LYMPHATIC: No anemia, easy bleeding, or history of blood clots. ALLERGIC/IMMUNOLOGIC: No hives or skin allergy. <Aubrey Perry - Last Filed: 03/08/18 19:50> *Physical Exam - Vital Signs Last Vital Signs Temp Pulse Resp BP Pulse Ox 99.8 F H 67 24 154/75 94 L 03/08/18 18:30 03/08/18 18:30 03/08/18 18:30 03/08/18 18:30 03/08/18 18:30 - Physical Exam Comments: 03/08/18 19:52 GENERAL: Awake, alert, and fully oriented, in no acute distress HEAD: +Dry patch located on the forehead. Normocephalic, atraumatic EYES: PERRLA, EOMI, sclera anicteric, conjunctiva clear ENT: Auricles normal inspection, hearing grossly normal, nares patent, oropharynx clear without exudates. Moist mucosa NECK: Normal ROM, supple, no lymphadenopathy, JVD, or masses LUNGS: No distress, speaks full sentences, clear to auscultation bilaterally HEART: Regular rate and rhythm, normal S1 and S2, no murmurs, rubs or gallops, peripheral pulses normal and equal bilaterally. ABDOMEN: +Epigastric tenderness, normoactive bowel sounds. No guarding, no rebound. No masses EXTREMITIES : +Pitting edema 1 bilateral to the legs. NEUROLOGICAL: Cranial nerves II through XII grossly intact. Normal speech, no focal sensorimotor deficits SKIN: Warm, Dry, normal turgor, no rashes or lesions noted <Aubrey Perry - Last Filed: 03/08/18 19:50> Heart Score/ECG Review - ECG Intrepretation Comment:: 03/08/18 21:51 afib at 77, L axis, lbbb, no acute st/t wave findings <Fátima Monet - Last Filed: 03/09/18 02:03> ED Treatment Course - LABORATORY CBC & Chemistry Diagram: 03/08/18 19:02 03/08/18 19:02 <Aubrey Perry - Last Filed: 03/08/18 19:50> - LABORATORY CBC & Chemistry Diagram: 03/08/18 19:02 03/08/18 22:00 <Fátima Monet - Last Filed: 03/09/18 02:03> Medical Decision Making - Medical Decision Making 03/08/18 21:52 a/p: 87yo male sent from his NH for eval of fever, cough, n/v/d -pt is pleasantly demented and a poor historia -pt with cough, but clear lungs -pt with epigastric abd pain -will send labs, ekg, cxr, cultures, ua -pt without vomiting in the ED -will do straight cath for ua -will give ivf hydraiton -will monitor and reassess 03/09/18 02:01 pt ua negative for infection, however blood - will obtain ct abd/pelvis pt cxr clear afebrile in the ED labs reviewed and stable suspect renal colic vs viral syndrome pt will be signed out to the oncoming ED physician pending ct abd pelvis pt has vss in the ed pt is nontoxic in appearance <Fátima Monet - Last Filed: 03/09/18 02:03> *DC/Admit/Observation/Transfer - Attestations Scribe Attestion: 03/08/18 19:52 Documentation prepared by Aubrey Perry, acting as medical anthropology director for Fátima Monet DO <Aubrey Perry - Last Filed: 03/08/18 19:50> - Attestations Physician Attestion: 03/09/18 02:03 I, Dr. Fátima Monet DO, attest that this document has been prepared under my direction and personally reviewed by me in its entirety. I further attest, that it accurately reflects all work, treatment, procedures and medical decision -making performed by me. <Fátima Moent - Last Filed: 03/09/18 02:03> Diagnosis at time of Disposition: Nausea and vomiting - Referrals Referrals: Sharon Bui MD [Primary Care Provider] - - Patient Instructions - Post Discharge Activity
[2018-03-08 19:00] VITALS: BMI 27.3
[2018-03-08 19:43] LABS: BASO % 0.6 % (0-2.0); EOS % 1.9 % (0-4.5); HEMATOCRIT 36.3 % (35.4-49); HEMOGLOBIN 12.3 GM/dL (11.7-16.9); LYMPH % 7.4 % (8-40); MCH 29.5 pg (25.7-33.7); MEAN PLT VOLUME 8.3 fl (7.5-11.1); NEUT % 76.1 % (42.8-82.8); PLATELET COUNT 171 K/MM3 (134-434); RBC 4.18 M/mm3 (4.00-5.60); RDW 14.3 % (11.9-15.9); WHITE BLOOD COUNT 7.6 K/mm3 (4.0-10.0)
[2018-03-08 20:28] LABS: VENOUS PC02 48.6 mmHg (38-52); VENOUS PH 7.36 (7.32-7.42); VENOUS PO2 48.4 mmHg (28-48)
[2018-03-08] MEDS ORDERED: SODIUM CHLORIDE 0.9% 1000 ML INFUS.BAG IV ONE (21:54)
[2018-03-08] MEDS ORDERED: ONDANSETRON 4 MG/2 ML VIAL IVPUSH ONE (21:54)
[2018-03-08] MEDS ORDERED: ACETAMINOPHEN 1000 MG/100 ML VIAL (NON FORMULARY) IVPB ONE (21:54)
[2018-03-08] MEDS ORDERED: ONDANSETRON 4 MG/2 ML VIAL ONE (22:08)
[2018-03-08] MEDS ORDERED: ACETAMINOPHEN INJECTION 100 ML IVPB ONE (22:08)
[2018-03-08] MEDS ORDERED: MAG HYDROX/AL HYDROX/SIMETH 30 ML UNIT-DOSE CUP PO ONE (22:44)
[2018-03-08 23:08] LABS: INR 1.47 (0.82-1.09); PROTHROMBIN TIME (PATIENT) 16.6 SEC (9.7-13.0)
[2018-03-08 23:27] LABS: URINE APPEARANCE CLEAR; URINE BILIRUBIN NEGATIVE (<2.0 mg/dL); URINE COLOR LTYELLOW; URINE GLUCOSE (UA) NEGATIVE (NEGATIVE); URINE KETONE NEGATIVE (NEGATIVE); URINE LEUK ESTERASE TRACE (NEGATIVE); URINE NITRITE NEGATIVE (NEGATIVE); URINE PROTEIN NEGATIVE (NEGATIVE); URINE UROBILINOGEN NEGATIVE mg/dL (0.2-1.0)
[2018-03-08 23:27] LABS: ALBUMIN 3.5 g/dl (3.4-5.0); ALK PHOS 115 U/L (45-117); ANION GAP 8 (8-16); BILIRUBIN,TOTAL 0.9 mg/dL (0.2-1.0); BLOOD UREA NITROGEN 13 mg/dL (7-18); CALCIUM 8.6 mg/dL (8.5-10.1); CHLORIDE 104 mmol/L (98-107); CO2 26 mmol/L (21-32); CREATININE 0.8 mg/dL (0.7-1.3); GLUCOSE,RANDOM 166 mg/dL (74-106); POTASSIUM 4.3 mmol/L (3.5-5.1); SGOT/AST 24 U/L (15-37); SGPT/ALT 25 U/L (12-78); SODIUM 138 mmol/L (136-145); TOT PROT 6.9 g/dl (6.4-8.2)
[2018-03-08 23:32] LABS: EPI CELLS RARE /HPF (FEW); URINE BACTERIA RARE /hpf (NONE SEEN); URINE MUCUS RARE
--- NOTE | 2018-03-09 02:38 | PDOC ---
*Physical Exam - Vital Signs Last Vital Signs Temp Pulse Resp BP Pulse Ox 99.8 F H 91 H 22 113/60 95 03/08/18 18:30 03/08/18 19:40 03/08/18 19:40 03/08/18 19:40 03/08/18 19:40 ED Treatment Course - LABORATORY CBC & Chemistry Diagram: 03/08/18 19:02 03/08/18 22:00 - ADDITIONAL ORDERS Additional order review: Laboratory Results 03/08/18 03/08/18 03/08/18 23:00 22:00 22:00 PT with INR 16.60 H INR 1.47 H VBG pH POC VBG pCO2 POC VBG pO2 Mixed VBG HCO3 Sodium 138 Potassium 4.3 Chloride 104 Carbon Dioxide 26 Anion Gap 8 BUN 13 Creatinine 0.8 Creat Clearance w eGFR > 60 Random Glucose 166 H Lactic Acid Calcium 8.6 Total Bilirubin 0.9 AST 24 ALT 25 D Alkaline Phosphatase 115 Creatine Kinase Troponin I Total Protein 6.9 Albumin 3.5 Lipase Urine Color Ltyellow Urine Appearance Clear Urine pH 6.0 Ur Specific Mooers 1.012 Urine Protein Negative Urine Glucose (UA) Negative Urine Ketones Negative Urine Blood 1+ H Urine Nitrite Negative Urine Bilirubin Negative Urine Urobilinogen Negative Ur Leukocyte Esterase Trace Urine WBC (Auto) 2 Urine RBC (Auto) 9 Ur Epithelial Cells Rare Urine Bacteria Rare Urine Mucus Rare Blood Type Antibody Screen 03/08/18 03/08/18 03/08/18 19:39 19:30 19:19 PT with INR INR VBG pH 7.36 POC VBG pCO2 48.6 POC VBG pO2 48.4 H D Mixed VBG HCO3 27.0 H Sodium Potassium Chloride Carbon Dioxide Anion Gap BUN Creatinine Creat Clearance w eGFR Random Glucose Lactic Acid 1.3 Calcium Total Bilirubin AST ALT Alkaline Phosphatase Creatine Kinase Cancelled Troponin I Cancelled Total Protein Albumin Lipase Urine Color Urine Appearance Urine pH Ur Specific Mooers Urine Protein Urine Glucose (UA) Urine Ketones Urine Blood Urine Nitrite Urine Bilirubin Urine Urobilinogen Ur Leukocyte Esterase Urine WBC (Auto) Urine RBC (Auto) Ur Epithelial Cells Urine Bacteria Urine Mucus Blood Type Antibody Screen 03/08/18 03/08/18 03/08/18 19:03 19:02 19:02 PT with INR Cancelled INR Cancelled VBG pH POC VBG pCO2 POC VBG pO2 Mixed VBG HCO3 Sodium Cancelled Potassium Cancelled Chloride Cancelled Carbon Dioxide Cancelled Anion Gap Cancelled BUN Cancelled Creatinine Cancelled Creat Clearance w eGFR Cancelled Random Glucose Cancelled Lactic Acid Calcium Cancelled Total Bilirubin Cancelled AST Cancelled ALT Cancelled Alkaline Phosphatase Cancelled Creatine Kinase Troponin I Total Protein Cancelled Albumin Cancelled Lipase Cancelled Urine Color Urine Appearance Urine pH Ur Specific Mooers Urine Protein Urine Glucose (UA) Urine Ketones Urine Blood Urine Nitrite Urine Bilirubin Urine Urobilinogen Ur Leukocyte Esterase Urine WBC (Auto) Urine RBC (Auto) Ur Epithelial Cells Urine Bacteria Urine Mucus Blood Type Cancelled Antibody Screen Cancelled 03/08/18 19:02 RBC 4.18 MCV 87.0 MCHC 34.0 RDW 14.3 MPV 8.3 D Neutrophils % 76.1 Lymphocytes % 7.4 L Monocytes % 14.0 H Eosinophils % 1.9 Basophils % 0.6 - Medications Given in the ED: ED Medications Discontinued Medications Generic Name Dose Route Start Last Admin Trade Name Tatoq PRN Reason Stop Dose Admin Acetaminophen 1,000 mg 03/08/18 21:54 03/08/18 22:18 Ofirmev Injection - IVPB 03/08/18 21:55 1,000 mg ONCE ONE Administration Al Hydroxide/Mg Hydroxide 30 ml 03/08/18 22:44 03/08/18 23:11 Mylanta Oral Suspension - PO 03/08/18 22:45 30 ml ONCE ONE Administration Ondansetron HCl 4 mg 03/08/18 21:54 03/08/18 22:18 Zofran Injection IVPUSH 03/08/18 21:55 4 mg ONCE ONE Administration Sodium Chloride 500 ml 03/08/18 21:54 03/08/18 22:18 Normal Saline - IV 03/08/18 21:55 500 ml ONCE ONE Administration Medical Decision Making - Medical Decision Making 03/09/18 02:38 Pt lab work and Ct scan are negative for any pathology. Pt is afebrile here. the other VS are stable. Pt to return to his facility. *DC/Admit/Observation/Transfer Diagnosis at time of Disposition: Nausea and vomiting - Discharge Dispostion Disposition: HOME Condition at time of disposition: Stable Decision to Admit order: No - Referrals Referrals: Sharon Bui MD [Primary Care Provider] - - Patient Instructions Printed Discharge Instructions: DI for Nausea -- Adult, Nausea and Vomiting- Adult - Post Discharge Activity
[2018-03-09 03:10] VITALS: BP 143/105; PULSE 70; TEMP 98.3
[2018-03-09 12:33] LABS: LIPASE 112 U/L (73-393)
--- NOTE | 2018-03-09 16:20 | EKG ---
Test Reason : Blood Pressure : / mmHG Vent. Rate : 078 BPM Atrial Rate : 079 BPM P-R Int : 000 ms QRS Dur : 140 ms QT Int : 404 ms P-R-T Axes : 000 -30 100 degrees QTc Int : 460 ms POOR DATA QUALITY, INTERPRETATION MAY BE ADVERSELY AFFECTED ATRIAL FIBRILLATION LEFT AXIS DEVIATION LEFT BUNDLE BRANCH BLOCK ABNORMAL ECG WHEN COMPARED WITH ECG OF 03-NOV-2017 16:40, PREVIOUS ECG HAS UNDETERMINED RHYTHM, NEEDS REVIEW Confirmed by QASIM MACIAS MD ([id number]) on 03/09/2018 4:20:00 PM Referred By: Confirmed By:QASIM MACIAS MD
--- NOTE | 2018-03-20 15:07 | EKG ---
Test Reason : Blood Pressure : / mmHG Vent. Rate : 067 BPM Atrial Rate : 067 BPM P-R Int : 000 ms QRS Dur : 140 ms QT Int : 426 ms P-R-T Axes : 000 -48 076 degrees QTc Int : 450 ms ATRIAL FIBRILLATION WITH FREQUENT ventricular-paced complexes LEFT AXIS DEVIATION ABNORMAL ECG WHEN COMPARED WITH ECG OF 03-NOV-2017 16:40, VENTRICULAR PACED RHYTHM IS SEEN Confirmed by ALVINA PRUITT MD [id number]) on 03/20/2018 3:06:49 PM Referred By: Confirmed By:ALVINA PRUITT MD
== END 2018-03-09 03:00 ==
LOC: JER 18:12
PROC: 3E033GC Introduction of Other Therapeutic Substance into Peripheral Vein, Percutaneous Approach (ICD-10-PCS; principal; 2018-03-08)
PROC: 3E033NZ Introduction of Analgesics, Hypnotics, Sedatives into Peripheral Vein, Percutaneous Approach (ICD-10-PCS; 2018-03-08)
DX: R11.2 Nausea with vomiting, unspecified (principal); I25.10 Atherosclerotic heart disease of native coronary artery without angina pectoris; I10 Essential (primary) hypertension; Z95.1 Presence of aortocoronary bypass graft; Z95.0 Presence of cardiac pacemaker; E78.00 Pure hypercholesterolemia, unspecified; E11.9 Type 2 diabetes mellitus without complications; F41.9 Anxiety disorder, unspecified; F03.90 Unspecified dementia, unspecified severity, without behavioral disturbance, psychotic disturbance, mood disturbance, and anxiety; Z79.82 Long term (current) use of aspirin
CPT/HCPCS: 36415; 71045-TC-FY; 74176-TC; 80053; 81003; 81015; 82550; 82803; 83605; 83690; 84484; 85025; 85610; 87040; 87086; 93005; 93010; 99285-25; J0131; J7030

== ENCOUNTER 2018-03-09 04:26 | Emergency (ER) | payer OTHER ==
[2018-03-09 04:38] VITALS: BMI 26.1
[2018-03-09] MEDS ORDERED: LISINOPRIL 5 MG TABLET (FP) PO ONE (04:47)
[2018-03-09] MEDS ORDERED: CARVEDILOL 12.5 MG TABLET (FP) PO ONE (04:47)
[2018-03-09] MEDS ORDERED: [UNRECOGNIZED DRUG - OTHER] ONE (05:04)
[2018-03-09] MEDS ORDERED: LISINOPRIL 5 MG TABLET (FP) ONE (05:04)
[2018-03-09] MEDS ORDERED: CARVEDILOL 12.5 MG TABLET (FP) ONE (05:05)
--- NOTE | 2018-03-09 05:05 | PDOC ---
Attending Attestation - Resident Resident Name: Mabel Garzon - ED Attending Attestation I have performed the following: I have examined & evaluated the patient, The case was reviewed & discussed with the resident, I agree w/resident's findings & plan, Exceptions are as noted <Aubrey Miranda - Last Filed: 03/09/18 04:43> - HPI HPI: 03/09/18 05:15 The patient is a 87 year old male, with significant past medical history of CAD , afib, cabg, dementia presents to ER BIBA from [facility] , who re-presents with elevated blood pressure since being discharged 2 hours ago. As per EMS, [facility] refused to take the patient because they did not have any nurses on duty to monitor his blood pressure. - Physicial Exam PE: 03/09/18 05:15 GENERAL: Well-appearing, well-nourished. No apparent distress. HEENT: Normocephalic, atraumatic. PERRL, EOM intact. CARDIOVASCULAR: (+) Elevated blood pressure. Normal S1, S2. Regular rate and rhythm. PULMONARY: Clear to auscultation bilaterally. ABDOMEN: Soft, non-distended, non-tender. EXTREMITIES: Normal ROM in all four extremities. No gross deformities. SKIN: Warm, dry. No rash NEUROLOGICAL: No focal neurological deficits. - Medical Decision Making 03/09/18 05:15 Documentation prepared by Jake Linares, acting as medical transcription for Aubrey Miranda DO. <Jake Linares - Last Filed: 03/09/18 05:15>
--- NOTE | 2018-03-09 05:06 | PDOC ---
History of Present Illness - General Chief Complaint: Blood Pressure Problem Stated Complaint: HIGH BLOOD PRESSURE Time Seen by Provider: 03/09/18 04:30 History Source: Patient, EMS, Skilled Nursing Records Exam Limitations: No Limitations - History of Present Illness Initial Comments: This is an 87 YOM with PMH of CAD, A-fib, CABG, HTN (on lisinopril 2.5 mg daily and carvedilol 25 mg bid), and dementia was BIBA from [facility]. He was just seen here in the ED for nausea, vomiting, fever, and cough. He received a full workup and was discharged back to [facility] via [facility], however on his arrival there his blood pressure was elevated and they would not accept him back because there were no RNs there to care for him. They sent him back here to the ED here for blood pressure control. Past History - Past Medical History Allergies/Adverse Reactions: Allergies Allergy/AdvReac Type Severity Reaction Status Date / Time No Known Allergies Allergy Verified 03/09/18 04:29 Home Medications: Ambulatory Orders Acetaminophen 650 mg PO Q6H PRN 10/22/17 Aspirin 81 mg PO DAILY 10/22/17 Carvedilol 12.5 mg PO BID 10/22/17 Dabigatran Etexilate Mesylate [Pradaxa -] 150 mg PO BID 10/22/17 Isosorbide Mononitrate [Imdur -] 30 mg PO DAILY 10/22/17 Lisinopril 2.5 mg PO DAILY 10/22/17 Mirabegron [Myrbetriq] 50 mg PO DAILY 10/22/17 Polyethylene Glycol 3350 [Glycolax] 1 scoop PO DAILY 10/22/17 Potassium Chloride [Klor-Con M10] 10 meq PO DAILY 10/22/17 Quetiapine Fumarate [Seroquel -] 12.5 mg PO HS 10/22/17 Atorvastatin Ca [Lipitor] 40 mg PO HS 10/23/17 Docusate Sodium [Colace -] 200 mg PO HS 10/23/17 Furosemide [Lasix -] 20 mg PO DAILY #30 tablet 10/24/17 Meclizine HCl 25 mg PO PRN 03/08/18 Cardiac Disorders: Yes (afib) COPD: No Dementia: Yes Diabetes: Yes Disorders: Yes (overactive bladder) HTN: Yes Hypercholesterolemia: Yes Psychiatric Problems: Yes (ANXIETY) - Surgical History Cardiac Surgery: Yes (pacemaker) - Suicide/Smoking/Psychosocial Hx Smoking History: Never smoked Have you smoked in the past 12 months: No Information on smoking cessation initiated: No Hx Alcohol Use: No Drug/Substance Use Hx: No Substance Use Type: None Hx Substance Use Treatment: No Review of Systems - Review of Systems Able to Perform ROS?: No (dementia) *Physical Exam - Vital Signs Last Vital Signs Temp Pulse Resp BP Pulse Ox 97.5 F L 95 H 20 162/105 98 03/09/18 04:29 03/09/18 04:29 03/09/18 04:29 03/09/18 04:29 03/09/18 04:29 ED Treatment Course - Medications Given in the ED: ED Medications Discontinued Medications Generic Name Dose Route Start Last Admin Trade Name Freq PRN Reason Stop Dose Admin Carvedilol 12.5 mg 03/09/18 04:47 03/09/18 05:02 Coreg - PO 03/09/18 04:48 12.5 mg ONCE ONE Administration Lisinopril 2.5 mg 03/09/18 04:47 03/09/18 05:02 Prinivil PO 03/09/18 04:48 2.5 mg ONCE ONE Administration
[2018-03-09] MEDS ORDERED: ALBUTEROL SO4 2.5/IPRATROPIUM 0.5 INH SOL 3 ML VIAL.NEB. NEB ONE ×2 (05:17)
--- NOTE | 2018-03-09 07:20 | PDOC ---
*Physical Exam - Vital Signs Last Vital Signs Temp Pulse Resp BP Pulse Ox 98.5 F 77 18 143/66 100 03/09/18 05:47 03/09/18 06:57 03/09/18 06:57 03/09/18 06:57 03/09/18 06:57 ED Treatment Course - Medications Given in the ED: ED Medications Discontinued Medications Generic Name Dose Route Start Last Admin Trade Name Brittany PRN Reason Stop Dose Admin Albuterol/Ipratropium 2 amp 03/09/18 05:17 03/09/18 05:20 Duoneb - NEB 03/09/18 05:18 2 amp ONCE ONE Administration Carvedilol 12.5 mg 03/09/18 04:47 03/09/18 05:02 Coreg - PO 03/09/18 04:48 12.5 mg ONCE ONE Administration Lisinopril 2.5 mg 03/09/18 04:47 03/09/18 05:02 Prinivil PO 03/09/18 04:48 2.5 mg ONCE ONE Administration Medical Decision Making - Medical Decision Making 03/09/18 07:[address] Uribe. 03/09/18 08:52 Mr. Arnett is an 87 yo male w/ pmh of CAD, afib, CABG, HTN, and dementia who presents for evaluation of elevated BP on arrival to home ([facility]) after discharge earlier today for N/V workup. Was found to have elevated BP on arrival to care facility however was non- concerning when re-evaluated in ER. Discussed patient with (Deborah: ) who will discuss with care facility and call back. 03/09/18 09:55 Discussed case with again who requests call to care facility to discussion. Further care w/ nurse at [facility] revealed that concern for elevated BP came from EMS on the way and not them; they are ok with his return. Will contact to discuss and send patient back. Discharging to home. *DC/Admit/Observation/Transfer Diagnosis at time of Disposition: Hypertension Qualifiers: Hypertension type: unspecified Qualified Code(s): I10 - Essential (primary) hypertension - Discharge Dispostion Disposition: [facility] Condition at time of disposition: Good - Referrals Referrals: Hao,Sahron, MD [Primary Care Provider] - - Patient Instructions - Post Discharge Activity
[2018-03-09 09:57] VITALS: BP 139/80; PULSE 72; TEMP 98.7
== END 2018-03-09 12:16 ==
LOC: JER 04:26
DX: I10 Essential (primary) hypertension (principal); I25.10 Atherosclerotic heart disease of native coronary artery without angina pectoris; Z95.1 Presence of aortocoronary bypass graft; Z95.0 Presence of cardiac pacemaker; I48.91 Unspecified atrial fibrillation; Z79.01 Long term (current) use of anticoagulants; F41.9 Anxiety disorder, unspecified; Z79.82 Long term (current) use of aspirin
CPT/HCPCS: 99282-25; J7620

== ENCOUNTER 2018-03-09 14:15 | Observation (INO) | payer OTHER ==
--- NOTE | 2018-03-09 14:31 | PDOC ---
History of Present Illness - General Stated Complaint: HTN Time Seen by Provider: 03/09/18 14:18 - History of Present Illness Initial Comments: 03/09/18 14:19 Mr. Arnett is an 87 yo male w/ pmh of CAD, afib, CABG, HTN, and dementia recently evaluated for nausea/vomiting who presents from [facility] as they did not feel comfortable taking further care of him after his evaluation in ER. Per family he is normally very unsteady on his feet however able to ambulate with walker at baseline. Patient had episode of Nausea/cough/vomiting yesterday. No further episodes today. Allergies: NKDA Past History - Past Medical History Allergies/Adverse Reactions: Allergies Allergy/AdvReac Type Severity Reaction Status Date / Time No Known Allergies Allergy Verified 03/09/18 04:29 Home Medications: Ambulatory Orders Acetaminophen 650 mg PO Q6H PRN 10/22/17 Aspirin 81 mg PO DAILY 10/22/17 Carvedilol 12.5 mg PO BID 10/22/17 Dabigatran Etexilate Mesylate [Pradaxa -] 150 mg PO BID 10/22/17 Isosorbide Mononitrate [Imdur -] 30 mg PO DAILY 10/22/17 Lisinopril 2.5 mg PO DAILY 10/22/17 Mirabegron [Myrbetriq] 50 mg PO DAILY 10/22/17 Polyethylene Glycol 3350 [Glycolax] 1 scoop PO DAILY 10/22/17 Potassium Chloride [Klor-Con M10] 10 meq PO DAILY 10/22/17 Quetiapine Fumarate [Seroquel -] 12.5 mg PO HS 10/22/17 Atorvastatin Ca [Lipitor] 40 mg PO HS 10/23/17 Docusate Sodium [Colace -] 200 mg PO HS 10/23/17 Furosemide [Lasix -] 20 mg PO DAILY #30 tablet 10/24/17 Meclizine HCl 25 mg PO PRN 03/08/18 Cardiac Disorders: Yes (afib) COPD: No Dementia: Yes Diabetes: Yes Disorders: Yes (overactive bladder) HTN: Yes Hypercholesterolemia: Yes Psychiatric Problems: Yes (ANXIETY) - Surgical History Cardiac Surgery: Yes (pacemaker) - Suicide/Smoking/Psychosocial Hx Smoking History: Never smoked Have you smoked in the past 12 months: No Hx Alcohol Use: No Drug/Substance Use Hx: No Substance Use Type: None Hx Substance Use Treatment: No Review of Systems - Review of Systems Comments:: 03/09/18 14:36 Unable to obtain further. *Physical Exam - Physical Exam Comments: 03/09/18 14:36 GENERAL: Awake, alert, and oriented to baseline per family, in no acute distress HEAD: No signs of trauma, normocephalic, atraumatic EYES: PERRLA, EOMI, sclera anicteric, conjunctiva clear ENT: Auricles normal inspection, hearing grossly normal, nares patent, oropharynx clear without exudates. Moist mucosa NECK: Normal ROM, supple, no lymphadenopathy, JVD, or masses LUNGS: +Minor cough appreciated. No distress, speaks full sentences, clear to auscultation bilaterally HEART: Regular rate and rhythm, normal S1 and S2, no murmurs, rubs or gallops, peripheral pulses normal and equal bilaterally. ABDOMEN: Soft, nontender, normoactive bowel sounds. No guarding, no rebound. No masses EXTREMITIES: Normal inspection, Normal range of motion, no edema. No clubbing or cyanosis. NEUROLOGICAL: Cranial nerves II through XII grossly intact. Normal speech, no focal sensorimotor deficits SKIN: Warm, Dry, normal turgor, no rashes or lesions noted. ED Treatment Course - LABORATORY CBC & Chemistry Diagram: 03/09/18 15:53 03/09/18 15:53 Medical Decision Making - Medical Decision Making 03/09/18 14:37 Mr. Arnett is an 87 yo male w/ pmh as described who presents after failure of placement at [facility]. Discussed patient with customer engagement manager of halfway who believes patient "looks like " and does not believe they are capable of managing his care at this time. Patient well appearing and conversant; able to stand and ambulate with assistance. Patient does not require supplemental oxygen. Concern for acute process at this time low. Minor cough appreciated - believe patient may have beginnings of URI. Will consult inpatient team for admission for further evaluation and proper care placement. 03/09/18 17:47 Patient's labs grossly wnl as below. EKG revealed continued LBBB unchanged from previous. Admitting patient. Laboratory Results - last 24 hr 03/09/18 03/09/18 15:53 15:53 WBC 8.0 RBC 4.54 Hgb 13.2 Hct 39.5 MCV 87.1 MCH 29.2 MCHC 33.5 RDW 14.5 Plt Count 148 MPV 7.7 Absolute Neuts (auto) 6.2 Neutrophils % 77.1 Lymphocytes % 6.7 L Monocytes % 12.2 H Eosinophils % 3.7 D Basophils % 0.3 Nucleated RBC % 0 Sodium 139 Potassium 4.4 Chloride 102 Carbon Dioxide 30 Anion Gap 7 L BUN 11 Creatinine 0.8 Creat Clearance w eGFR > 60 Random Glucose 137 H Calcium 8.7 Total Bilirubin 1.2 H AST 22 ALT 25 Alkaline Phosphatase 114 Total Protein 7.1 Albumin 3.6 *DC/Admit/Observation/Transfer Diagnosis at time of Disposition: Encounter for examination for admission to [facility] - Discharge Dispostion Decision to Admit order: Yes - Referrals Referrals: Sharon Bui MD [Primary Care Provider] - - Patient Instructions - Post Discharge Activity
--- NOTE | 2018-03-09 15:06 | PDOC ---
Attending Attestation - Resident Resident Name: Kirill Salmeron - ED Attending Attestation I have performed the following: I have examined & evaluated the patient, The case was reviewed & discussed with the resident, I agree w/resident's findings & plan - HPI HPI: 03/09/18 15:11 87y/o M 3rd visit to ED in 24h 2/ reported increased weakness and change from baseline in the setting of URI. first visit revealed negative workup. Pt was discharged but sent back to ED / elevated BP. On 2nd visit, BP wnl, discussed with , pt at baseline and d/c again. Admin called ED reporting concern for labored breathing and change from baseline : nonverbal and unable to ambulate, so sent to ED for higher level of care placement. - Physicial Exam PE: 03/09/18 15:38 VSS speaking clearly ambulating with assistance no respiratory distress - Medical Decision Making 03/09/18 15:38 87y/o M requiring higher level of care, possible rehab v. nh placement. repeat labs and ekg admit
[2018-03-09 16:43] LABS: BASO % 0.3 % (0-2.0); EOS % 3.7 % (0-4.5); HEMATOCRIT 39.5 % (35.4-49); HEMOGLOBIN 13.2 GM/dL (11.7-16.9); LYMPH % 6.7 % (8-40); MCH 29.2 pg (25.7-33.7); MCHC 33.5 g/dl (32.0-35.9); MEAN CELL VOLUME 87.1 fl (80-96); MEAN PLT VOLUME 7.7 fl (7.5-11.1); MONO % 12.2 % (3.8-10.2); NEUT % 77.1 % (42.8-82.8); PLATELET COUNT 148 K/MM3 (134-434); RBC 4.54 M/mm3 (4.00-5.60); RDW 14.5 % (11.9-15.9)
[2018-03-09 16:47] LABS: ALBUMIN 3.6 g/dl (3.4-5.0); ANION GAP 7 (8-16); BILIRUBIN,TOTAL 1.2 mg/dL (0.2-1.0); BLOOD UREA NITROGEN 11 mg/dL (7-18); CALCIUM 8.7 mg/dL (8.5-10.1); CHLORIDE 102 mmol/L (98-107); CO2 30 mmol/L (21-32); CREATININE 0.8 mg/dL (0.7-1.3); GLUCOSE,RANDOM 137 mg/dL (74-106); POTASSIUM 4.4 mmol/L (3.5-5.1); SGOT/AST 22 U/L (15-37); SGPT/ALT 25 U/L (12-78); SODIUM 139 mmol/L (136-145); TOT PROT 7.1 g/dl (6.4-8.2)
[2018-03-09 16:48] LABS: ALK PHOS 114 U/L (45-117)
--- NOTE | 2018-03-09 18:06 | HP ---
CHIEF COMPLAINT: rule out upper respiratory infection, poor ambulation, weakness PCP: Sharon Bui MD HISTORY OF PRESENT ILLNESS: Patient is an 87 year old male with a significant past medical history of diabetes, hypertension, overactive bladder, atrial fibrillation (on Pradaxa). He presents to the ED today from his nursing facility. Today is his third visit to [facility] since 03/08/2018. on 03/08/2018 he was sent to the ER for nausea and vomiting and was subsequently sent back to [facility] when Abd/CT was negative for acute process. He returned on 03/09 with concerns over elevated BP, however, his BP stabilized and he was sent back to facility. Upon return back to his facility today, he was sent to the ED over facility's concern over labored breathing, congestion and poor ambulation. Patient was in no acute distress during exam, but unable to participate in exam , secondary to dementia. History received from ER signout as well as medical records. He is resting comfortably, tolerating room air. No distress noted. Denies pain, denies shortness of breath. Mild expiratory wheezing noted throughout lung mackey. Mild congestion. Chest xray 03/08 negative for acute pathology. Will repeat chest xray in a.m. and monitor oxygen levels through the night. . Duonebs are scheduled and will consult pulmonary for further recommendations. Patient will need pre and post prior to discharge. ER course was notable for: (1) (2) (3) Recent Travel: PAST MEDICAL HISTORY: PAST SURGICAL HISTORY: Social History: Smoking: n/a Alcohol: n/a Drugs: n/a Family History: Allergies No Known Allergies Allergy (Verified 03/09/18 04:29) HOME MEDICATIONS: Home Medications Medication Instructions Recorded Acetaminophen 650 mg PO Q6H PRN 10/22/17 Aspirin 81 mg PO DAILY 10/22/17 Carvedilol 12.5 mg PO BID 10/22/17 Dabigatran Etexilate Mesylate 150 mg PO BID 10/22/17 [Pradaxa -] Isosorbide Mononitrate [Imdur -] 30 mg PO DAILY 10/22/17 Lisinopril 2.5 mg PO DAILY 10/22/17 Mirabegron [Myrbetriq] 50 mg PO DAILY 10/22/17 Polyethylene Glycol 3350 [Glycolax] 1 scoop PO DAILY 10/22/17 Potassium Chloride [Klor-Con M10] 10 meq PO DAILY 10/22/17 Quetiapine Fumarate [Seroquel -] 12.5 mg PO HS 10/22/17 Atorvastatin Ca [Lipitor] 40 mg PO HS 10/23/17 Docusate Sodium [Colace -] 200 mg PO HS 10/23/17 Furosemide [Lasix -] 20 mg PO DAILY #30 tablet 10/24/17 Meclizine HCl 25 mg PO PRN 03/08/18 PHYSICAL EXAMINATION Vital Signs - 24 hr 03/09/18 14:30 Temperature 97.8 F Pulse Rate 66 Respiratory 18 Rate Blood Pressure 136/78 O2 Sat by Pulse 96 Oximetry (%) GENERAL: Awake, alert, in no acute distress. HEAD: Normal with no signs of trauma. EYES: Pupils equal, round and reactive to light, extraocular movements intact, sclera anicteric, conjunctiva clear. No lid lag. EARS, NOSE, THROAT: Ears normal, nares patent, oropharynx clear without exudates. Moist mucous membranes. NECK: Normal range of motion, supple without lymphadenopathy, JVD, or masses. LUNGS: mild scattered expiratory wheezing, mild congestions bilaterally HEART: Regular rate and rhythm ABDOMEN: mildly distended abdomen, + bowel sounds, no abdominal pain MUSCULOSKELETAL: Normal range of motion at all joints. No bony deformities or tenderness. No CVA tenderness. UPPER EXTREMITIES: No peripheral edema. LOWER EXTREMITIES: No peripheral edema. NEUROLOGICAL: Normal speech. Normal gait. PSYCHIATRIC: Cooperative. Good eye contact. Appropriate mood and affect. SKIN: Warm, dry, normal turgor, no rashes or lesions noted, normal capillary refill. Laboratory Results - last 24 hr 03/09/18 03/09/18 15:53 15:53 WBC 8.0 RBC 4.54 Hgb 13.2 Hct 39.5 MCV 87.1 MCH 29.2 MCHC 33.5 RDW 14.5 Plt Count 148 MPV 7.7 Absolute Neuts (auto) 6.2 Neutrophils % 77.1 Lymphocytes % 6.7 L Monocytes % 12.2 H Eosinophils % 3.7 D Basophils % 0.3 Nucleated RBC % 0 Sodium 139 Potassium 4.4 Chloride 102 Carbon Dioxide 30 Anion Gap 7 L BUN 11 Creatinine 0.8 Creat Clearance w eGFR > 60 Random Glucose 137 H Calcium 8.7 Total Bilirubin 1.2 H AST 22 ALT 25 Alkaline Phosphatase 114 Total Protein 7.1 Albumin 3.6 ASSESSMENT/PLAN: Patient is an 87 year old male with a significant past medical history of diabetes, hypertension, overactive bladder, atrial fibrillation (on Pradaxa). He presents to the ED today from his nursing facility. Today is his third visit to [facility] since 03/08/2018. on 03/08/2018 he was sent to the ER for nausea and vomiting and was subsequently sent back to [facility] when Abd/CT was negative for acute process. He returned on 03/09 with concerns over elevated BP, however, his BP stabilized and he was sent back to facility. Upon return back to his facility today, he was sent to the ED over facility's concern over labored breathing, congestion and poor ambulation. Pulmonary Congestion/mild wheezing Rule out URI vs. viral etiology. Patient with non productive cough, no fevers on admission, WBC stable. No signs of infection. Will order schedule duonebs and monitor off antibiotics. Pulmonary consult for further recommendations. Tylenol prn. Chest xray in am. Recent chest xray 03/08 negative for acute pathology. Respiratory pre and post prior to d/c. Cards Atrial fibrillation, chronic On Pradaxa 150mg BID, Coreq 12.5mg BID. Coronary artery disease, chronic On ASA 81mg daily, Atorvastatin 40mg at bedtime Trops ordered. echo ordered. Hypertension, chronic Controlled. BP not elevated on admission. On Lasix 20mg PO daily, Lisinopril 5mg PO daily, Coreq 12.5mg BID. Monitor BP. : Urinary incontinence, chronic Continue home regimen Endocrine: Diabetes, chronic Novolog SS with BGMs ac/hs. Neuro: Dementia, history. On Seroquel. FEN PO adequate monitor electrolytes diabetic diet prophy: on Pradaxa. GI: deferred Physical therapy Respiratory pre and post Disposition: full code. Visit type - Emergency Visit Emergency Visit: Yes ED Registration Date: 03/09/18 Care time: The patient presented to the Emergency Department on the above date and was hospitalized for further evaluation of their emergent condition. - New Patient This patient is new to me today: Yes Date on this admission: 04/27/18 - Critical Care Critical Care patient: No Hospitalist Screening - Colonoscopy Questionnaire Colonoscopy Questionnaire: Colonoscopy Questionnaire - Patient: 50 - 75 years old and never had a screening colonoscopy: Unknown History of colon or rectal polyps, or CA: Unknown History of IBD, Crohn's disease or UC: Unknown History of abdominal radiation therapy as a child: Unknown - Relative: 1 with colon or rectal CA, or polyps at age 60 or younger: Unknown Colon or rectal CA diagnosed at age 45 or younger: Unknown Multiple relatives with colon or rectal CA: Unknown - Outcome: Screening Result: Negative Screen
[2018-03-09] MEDS ORDERED: CARVEDILOL 12.5 MG TABLET (FP) ONE (22:33)
[2018-03-09] MEDS ORDERED: ATORVASTATIN CA 40 MG TABLET (FP) ONE (22:33)
[2018-03-09] MEDS ORDERED: ALBUTEROL SO4 2.5/IPRATROPIUM 0.5 INH SOL 3 ML VIAL.NEB. NEB ONE (22:34)
[2018-03-09] MEDS ORDERED: QUEtiapine FUMARATE 25 MG TABLET (FP) ONE (22:34)
[2018-03-09] MEDS: QUEtiapine FUMARATE 25 MG TABLET (FP) PO SCH (22:39)
[2018-03-09] MEDS: ALBUTEROL SO4 2.5/IPRATROPIUM 0.5 INH SOL 3 ML VIAL.NEB. NEB SCH (22:39)
[2018-03-09] MEDS: CARVEDILOL 12.5 MG TABLET (FP) PO SCH (22:39)
[2018-03-09] MEDS: ATORVASTATIN CA 40 MG TABLET (FP) PO SCH (22:39)
[2018-03-10] MEDS: DABIGATRAN ETEXILATE MESYLATE 150 MG CAPSULE PO SCH ×4 (00:13→21:53)
[2018-03-10] MEDS: INSULIN SLIDING SCALE (NOVOLOG) 1 VIAL SQ SCH ×5 (00:13→21:54)
[2018-03-10] MEDS: DOCUSATE SODIUM 100 MG CAPSULE (FP) PO SCH ×2 (00:15→21:53)
[2018-03-10 00:29] VITALS: BMI 21.8
[2018-03-10] MEDS: ALBUTEROL SO4 2.5/IPRATROPIUM 0.5 INH SOL 3 ML VIAL.NEB. NEB SCH ×5 (06:41→21:33)
--- NOTE | 2018-03-10 09:16 | EKG ---
Test Reason : Blood Pressure : / mmHG Vent. Rate : 077 BPM Atrial Rate : 070 BPM P-R Int : 000 ms QRS Dur : 136 ms QT Int : 398 ms P-R-T Axes : 000 -12 095 degrees QTc Int : 450 ms ATRIAL FIBRILLATION LEFT BUNDLE BRANCH BLOCK NONSPECIFIC ST ABNORMALITY ABNORMAL ECG Confirmed by RADHA YEAGER MD ([id number]) on 03/10/2018 9:15:53 AM Referred By: Confirmed By:RADHA YEAGER MD
[2018-03-10] MEDS: ASPIRIN 81 MG CHEWABLE TABLETS PO SCH (10:06)
[2018-03-10] MEDS: FUROSEMIDE 20 MG TABLET (FP) PO SCH (10:06)
[2018-03-10] MEDS: LISINOPRIL 5 MG TABLET (FP) PO SCH (10:06)
[2018-03-10] MEDS: CARVEDILOL 12.5 MG TABLET (FP) PO SCH ×2 (10:06→21:53)
--- NOTE | 2018-03-10 14:19 | PN ---
Physical Exam: SUBJECTIVE: Patient seen and examined at the bedside. Denies discomfort or pain. OBJECTIVE: anterior lungs with congestion and wheezing Vital Signs Period Temp Pulse Resp BP Sys/Higgins Pulse Ox Last 24 Hr 97.8 F-98.6 F 66-82 18-21 119-154/55-78 94-97 GENERAL: Awake, alert, in no acute distress. HEAD: Normal with no signs of trauma. EYES: Pupils equal, round and reactive to light, extraocular movements intact, sclera anicteric, conjunctiva clear. No lid lag. EARS, NOSE, THROAT: Ears normal, nares patent, oropharynx clear without exudates. Moist mucous membranes. NECK: Normal range of motion, supple without lymphadenopathy, JVD, or masses. LUNGS: mild scattered expiratory wheezing, mild congestions bilaterally HEART: Regular rate and rhythm ABDOMEN: mildly distended abdomen, + bowel sounds, no abdominal pain MUSCULOSKELETAL: Normal range of motion at all joints. No bony deformities or tenderness. No CVA tenderness. UPPER EXTREMITIES: No peripheral edema. LOWER EXTREMITIES: No peripheral edema. NEUROLOGICAL: Normal speech. Normal gait. PSYCHIATRIC: Cooperative. Good eye contact. Appropriate mood and affect. SKIN: Warm, dry, normal turgor, small abrasion on anterior right foot. Laboratory Results - last 24 hr 03/09/18 03/09/18 03/09/18 15:53 15:53 22:29 WBC 8.0 RBC 4.54 Hgb 13.2 Hct 39.5 MCV 87.1 MCH 29.2 MCHC 33.5 RDW 14.5 Plt Count 148 MPV 7.7 Absolute Neuts (auto) 6.2 Neutrophils % 77.1 Lymphocytes % 6.7 L Monocytes % 12.2 H Eosinophils % 3.7 D Basophils % 0.3 Nucleated RBC % 0 Sodium 139 Potassium 4.4 Chloride 102 Carbon Dioxide 30 Anion Gap 7 L BUN 11 Creatinine 0.8 Creat Clearance w eGFR > 60 POC Glucometer Random Glucose 137 H Calcium 8.7 Total Bilirubin 1.2 H AST 22 ALT 25 Alkaline Phosphatase 114 Troponin I 0.02 Total Protein 7.1 Albumin 3.6 03/10/18 03/10/18 03/10/18 00:12 02:02 11:48 WBC RBC Hgb Hct MCV MCH MCHC RDW Plt Count MPV Absolute Neuts (auto) Neutrophils % Lymphocytes % Monocytes % Eosinophils % Basophils % Nucleated RBC % Sodium Potassium Chloride Carbon Dioxide Anion Gap BUN Creatinine Creat Clearance w eGFR POC Glucometer 136 132 Random Glucose Calcium Total Bilirubin AST ALT Alkaline Phosphatase Troponin I 0.02 Total Protein Albumin Active Medications Generic Name Dose Route Start Last Admin Trade Name Brittany PRN Reason Stop Dose Admin Albuterol/Ipratropium 1 amp 03/09/18 20:16 03/10/18 10:44 Duoneb - NEB 1 amp [id number] FRANCINE Administration Aspirin 81 mg 03/10/18 10:00 03/10/18 10:06 Asa - PO 81 mg DAILY FRANCINE Administration Atorvastatin Calcium 40 mg 03/09/18 22:00 03/09/18 22:39 Lipitor - PO 40 mg HS FRANCINE Administration Carvedilol 12.5 mg 03/09/18 22:00 03/10/18 10:06 Coreg - PO 12.5 mg BID FRANCINE Administration Dabigatran 150 mg 03/09/18 22:00 03/10/18 10:06 Pradaxa - PO 150 mg BID FRANCINE Administration Docusate Sodium 200 mg 03/09/18 22:00 03/10/18 00:15 Colace - PO Not Given HS FRANCINE Furosemide 20 mg 03/10/18 10:00 03/10/18 10:06 Lasix - PO 20 mg DAILY FRANCINE Administration Insulin Aspart 1 vial 03/09/18 22:00 03/10/18 11:50 Novolog Vial Sliding Scale - SQ Not Given ACHS [facility] Protocol Lisinopril 2.5 mg 03/10/18 10:00 03/10/18 10:06 Prinivil PO 2.5 mg DAILY FRANCINE Administration Quetiapine Fumarate 12.5 mg 03/09/18 22:00 03/09/18 22:39 Seroquel - PO 12.5 mg HS FRANCINE Administration ASSESSMENT/PLAN: Patient is an 87 year old male with a significant past medical history of diabetes, hypertension, overactive bladder, atrial fibrillation (on Pradaxa). He presents to the ED today from his nursing facility. Today is his third visit to [facility] since 03/08/2018. on 03/08/2018 he was sent to the ER for nausea and vomiting and was subsequently sent back to [facility] when Abd/CT was negative for acute process. He returned on 03/09 with concerns over elevated BP, however, his BP stabilized and he was sent back to facility. Upon return back to his facility today, he was sent to the ED over facility's concern over labored breathing, congestion and poor ambulation. Pulmonary Congestion/mild wheezing, acute asthmatic bronchitis as per pulmonary. As per pulmonary, started on Medrol x 24 per pulm. On duonebs. Ceftin BID. Patient with non productive cough, no fevers on admission, WBC stable. No signs of infection. Tylenol prn. chest xray negative for acute pathology. Respiratory pre and post prior to d/c. Cards Atrial fibrillation, chronic On Pradaxa 150mg BID, Coreq 12.5mg BID. Coronary artery disease, chronic On ASA 81mg daily, Atorvastatin 40mg at bedtime Trops negative. echo ordered. Hypertension, chronic Controlled. BP not elevated on admission. On Lasix 20mg PO daily, Lisinopril 5mg PO daily, Coreq 12.5mg BID. Monitor BP. : Urinary incontinence, chronic Endocrine: Diabetes, chronic Novolog SS with BGMs ac/hs. Neuro: Dementia, history. On Seroquel. FEN PO adequate monitor electrolytes diabetic diet prophy: on Pradaxa. GI: deferred Physical therapy Respiratory pre and post Disposition: full code. Visit type - Emergency Visit Emergency Visit: Yes ED Registration Date: 03/09/18 Care time: The patient presented to the Emergency Department on the above date and was hospitalized for further evaluation of their emergent condition. - New Patient This patient is new to me today: Yes Date on this admission: 04/27/18 - Critical Care Critical Care patient: No - Discharge Referral Referred to [facility] No
--- NOTE | 2018-03-10 15:33 | PN ---
Progress Note (short form) - Note Progress Note: PULMONARY CONSULTATION DICTATED 03/10/18 IMP ACUTE ASTHMATIC BRONCHITIS LIKELY URI AFIB ASHD HTN DEMENTIA DM PLAN INHALED BRONCHODILATORS MEDROL PO ABX O2 BP MEDS DR ROMANO Problem List - Problems (1) Asthmatic bronchitis Code(s): J45.909 - UNSPECIFIED ASTHMA, UNCOMPLICATED (2) Hypertension Code(s): I10 - ESSENTIAL (PRIMARY) HYPERTENSION Qualifiers: Hypertension type: unspecified Qualified Code(s): I10 - Essential (primary ) hypertension (3) Afib Code(s): I48.91 - UNSPECIFIED ATRIAL FIBRILLATION (4) CAD (coronary artery disease) Code(s): I25.10 - ATHSCL HEART DISEASE OF [place] CORONARY ARTERY W/O ANG PCTRS (5) DM (diabetes mellitus) Code(s): E11.9 - TYPE 2 DIABETES MELLITUS WITHOUT COMPLICATIONS (6) Dementia Code(s): F03.90 - UNSPECIFIED DEMENTIA WITHOUT BEHAVIORAL DISTURBANCE (7) HTN (hypertension) Code(s): I10 - ESSENTIAL (PRIMARY) HYPERTENSION (8) URI (upper respiratory infection) Code(s): J06.9 - ACUTE UPPER RESPIRATORY INFECTION, UNSPECIFIED
[2018-03-10] MEDS: methylPREDNISolone NA SUCC 40 MG/1 ML VIAL IVPUSH SCH ×2 (16:25→18:25)
[2018-03-10] MEDS ORDERED: INSULIN (NOVOLOG) ASPART 100 UNITS/ML 10ML VIAL ONE (16:39)
--- NOTE | 2018-03-10 17:41 | CONS ---
DATE OF CONSULTATION: 03/10/2018 PULMONARY CONSULTATION REFERRING PHYSICIAN: Dr. Tapia. HISTORY OF PRESENT ILLNESS: History is obtained from the chart. Patient is a poor historian. Patient is an 87-year-old white male with past medical history of atrial fibrillation, diabetes, hypertension, overactive bladder, dementia, skilled nursing resident transferred to [facility] secondary to shortness of breath, chest congestion, poor ambulation. Patient apparently was in the ER for the third visit since March 08. Apparently, he was sent to the ER for nausea, vomiting, and sent back to [facility] when he had abdominal CT which was negative. He apparently returned to [facility] on March 09 with elevated BP. BP stabilized in the ER and was sent back to the skilled nursing. He was sent back to [facility] yesterday with increasing chest congestion and labored breathing. In the emergency room, he was found in no acute distress, but he was noted to have bilateral congestion. He had an x-ray performed which revealed no acute pathology. He was started on inhaled bronchodilators with some clinical response. No further history is available at this time. PAST MEDICAL HISTORY: Again includes diabetes, hypertension, atrial fibrillation, overactive bladder, ASHD. REVIEW OF SYSTEMS: Unable to obtain. CURRENT MEDICATIONS: Include Prinivil, Pradaxa, Seroquel, DuoNeb, Coreg, Colace , Lipitor, Lasix, NovoLog, aspirin. PHYSICAL EXAMINATION: General: Patient is an elderly white male, well developed, well nourished, awake, alert, confused, in o acute distress. Vital Signs: He is afebrile, blood pressure 119/70, O2 saturation 94% on room air. HEENT: Exam is normocephalic, atraumatic. Neck: Supple. Heart: Irregularly irregular. S1, S2. Chest: Scattered bilateral wheezes more pronounced on the right. Abdomen: Soft. Bowel sounds are positive. Extremities: No cyanosis or edema. LABORATORIES: WBC is 8, hemoglobin 13.2, hematocrit 39.5, platelet count 148, 000. BUN 11, creatinine 0.8. Chest x-ray reveals no infiltrates and no effusions. IMPRESSION: 1. Likely acute asthmatic bronchitis secondary to upper respiratory infection. 2. Hypertension. 3. Arteriosclerotic heart disease. 4. Atrial fibrillation. 5. Dementia. PLAN: 1. Inhaled bronchodilators, steroids 24-48 hours 2. antibiotics. 3. O2 prn ERI ROMANO M.D. SHAGGY/[id number] MTDD
[2018-03-10] MEDS ORDERED: PT OWN MED DRAWER 7, Y5N ONE ×2 (17:45→21:43)
[2018-03-10] MEDS: QUEtiapine FUMARATE 25 MG TABLET (FP) PO SCH (21:53)
[2018-03-10] MEDS: ATORVASTATIN CA 40 MG TABLET (FP) PO SCH (21:53)
[2018-03-10] MEDS: CEFUROXIME AXETIL 500 MG TABLET PO SCH (21:55)
[2018-03-11] MEDS: methylPREDNISolone NA SUCC 40 MG/1 ML VIAL IVPUSH SCH ×4 (01:55→21:34)
[2018-03-11] MEDS: INSULIN SLIDING SCALE (NOVOLOG) 1 VIAL SQ SCH ×4 (06:34→21:36)
[2018-03-11] MEDS: ALBUTEROL SO4 2.5/IPRATROPIUM 0.5 INH SOL 3 ML VIAL.NEB. NEB SCH ×5 (06:55→22:33)
--- NOTE | 2018-03-11 08:59 | PN ---
Physical Exam: SUBJECTIVE: Patient seen and examined at the bedside. OBJECTIVE: alert, cooperative + congestion, wheezing anteriorly Vital Signs Period Temp Pulse Resp BP Sys/Higgins Pulse Ox Last 24 Hr 97.0 F-98.1 F 69-80 16-21 99-120/51-75 94-94 GENERAL: Awake, alert, in no acute distress. HEAD: Normal with no signs of trauma. EYES: Pupils equal, round and reactive to light, extraocular movements intact, sclera anicteric, conjunctiva clear. No lid lag. EARS, NOSE, THROAT: Ears normal, nares patent, oropharynx clear without exudates. Moist mucous membranes. NECK: Normal range of motion, supple without lymphadenopathy, JVD, or masses. LUNGS: mild scattered expiratory wheezing, mild congestions bilaterally HEART: Regular rate and rhythm ABDOMEN: mildly distended abdomen, + bowel sounds, no abdominal pain MUSCULOSKELETAL: Normal range of motion at all joints. No bony deformities or tenderness. No CVA tenderness. UPPER EXTREMITIES: No peripheral edema. LOWER EXTREMITIES: No peripheral edema. NEUROLOGICAL: Normal speech. Normal gait. PSYCHIATRIC: Cooperative. Good eye contact. Appropriate mood and affect. SKIN: Warm, dry, normal turgor, small abrasion on anterior right foot. Laboratory Results - last 24 hr 03/10/18 03/10/18 03/10/18 11:48 16:36 21:50 POC Glucometer 132 164 201 03/11/18 05:40 POC Glucometer 201 Active Medications Generic Name Dose Route Start Last Admin Trade Name Freq PRN Reason Stop Dose Admin Albuterol/Ipratropium 1 amp 03/09/18 20:16 03/11/18 06:55 Duoneb - NEB 1 amp Q4HWA FRANCINE Administration Aspirin 81 mg 03/10/18 10:00 03/10/18 10:06 Asa - PO 81 mg DAILY FRANCINE Administration Atorvastatin Calcium 40 mg 03/09/18 22:00 03/10/18 21:53 Lipitor - PO 40 mg HS FRANCINE Administration Carvedilol 12.5 mg 03/09/18 22:00 03/10/18 21:53 Coreg - PO 12.5 mg BID FRANCINE Administration Cefuroxime Axetil 500 mg 03/10/18 22:00 03/10/18 21:55 Ceftin - PO 500 mg BID FRANCINE Administration Dabigatran 150 mg 03/09/18 22:00 03/10/18 21:53 Pradaxa - PO 150 mg BID FRANCINE Administration Docusate Sodium 200 mg 03/09/18 22:00 03/10/18 21:53 Colace - PO 200 mg HS FRANCINE Administration Furosemide 20 mg 03/10/18 10:00 03/10/18 10:06 Lasix - PO 20 mg DAILY FRANCINE Administration Insulin Aspart 1 vial 03/09/18 22:00 03/11/18 06:34 Novolog Vial Sliding Scale - SQ 4 units ACHS FRANCINE Administration Protocol Lisinopril 2.5 mg 03/10/18 10:00 03/10/18 10:06 Prinivil PO 2.5 mg DAILY FRANCINE Administration Methylprednisolone Sodium Succinate 40 mg 03/10/18 15:45 03/11/18 01:55 Solu-Medrol - IVPUSH 40 mg Q8H-IV FRANCINE Administration Quetiapine Fumarate 12.5 mg 03/09/18 22:00 03/10/18 21:53 Seroquel - PO 12.5 mg HS FRANCINE Administration ASSESSMENT/PLAN: Patient is an 87 year old male with a significant past medical history of diabetes, hypertension, overactive bladder, atrial fibrillation (on Pradaxa). He presents to the ED today from his nursing facility. Today is his third visit to [place] since 03/08/2018. on 03/08/2018 he was sent to the ER for nausea and vomiting and was subsequently sent back to [facility] when Abd/CT was negative for acute process. He returned on 03/09 with concerns over elevated BP, however, his BP stabilized and he was sent back to facility. Upon return back to his facility today, he was sent to the ED over facility's concern over labored breathing, congestion and poor ambulation. Pulmonary Congestion/mild wheezing, acute asthmatic bronchitis as per pulmonary. As per pulmonary, started on Medrol x 24 per pulm. On duonebs. Ceftin BID. Patient with non productive cough, no fevers on admission, WBC stable. Tylenol prn. chest xray negative for acute pathology. Respiratory pre and post prior to d/c. Cards Atrial fibrillation, chronic On Pradaxa 150mg BID, Coreq 12.5mg BID Coronary artery disease, chronic On ASA 81mg daily, Atorvastatin 40mg at bedtime Trops negative. echo ordered. Hypertension, chronic BP elevated today. On Lasix 20mg PO daily, Lisinopril 5mg PO daily, Coreq 12.5mg BID. Monitor BP and will increase meds if remains elevated. : Urinary incontinence, chronic Endocrine: Diabetes, chronic Novolog SS with BGMs ac/hs. Neuro: Dementia, history. On Seroquel. FEN PO adequate monitor electrolytes diabetic diet prophy: on Pradaxa. GI: deferred Physical therapy Respiratory pre and post Disposition: full code. Awaiting SNF placement Visit type - Emergency Visit Emergency Visit: Yes ED Registration Date: 03/09/18 Care time: The patient presented to the Emergency Department on the above date and was hospitalized for further evaluation of their emergent condition. - New Patient This patient is new to me today: No - Critical Care Critical Care patient: No - Discharge Referral Referred to [facility] Med P.C.: No
[2018-03-11] MEDS ORDERED: PT OWN MED DRAWER 7, Y5N ONE ×2 (09:08→21:26)
[2018-03-11] MEDS: ASPIRIN 81 MG CHEWABLE TABLETS PO SCH (09:10)
[2018-03-11] MEDS: DABIGATRAN ETEXILATE MESYLATE 150 MG CAPSULE PO SCH ×2 (09:10→21:34)
[2018-03-11] MEDS: FUROSEMIDE 20 MG TABLET (FP) PO SCH (09:10)
[2018-03-11] MEDS: CEFUROXIME AXETIL 500 MG TABLET PO SCH ×2 (09:10→21:35)
[2018-03-11] MEDS: CARVEDILOL 12.5 MG TABLET (FP) PO SCH ×2 (09:10→21:34)
[2018-03-11] MEDS: LISINOPRIL 5 MG TABLET (FP) PO SCH (09:10)
[2018-03-11 10:06] LABS: HEMATOCRIT 40.2 % (35.4-49); HEMOGLOBIN 14.1 GM/dL (11.7-16.9); LYMPH % 10.4 % (8-40); MCHC 35.1 g/dl (32.0-35.9); MEAN CELL VOLUME 85.5 fl (80-96); MEAN PLT VOLUME 7.5 fl (7.5-11.1); MONO % 2.4 % (3.8-10.2); NEUT % 87.2 % (42.8-82.8); PLATELET COUNT 155 K/MM3 (134-434); RDW 14.2 % (11.9-15.9); WHITE BLOOD COUNT 4.1 K/mm3 (4.0-10.0)
[2018-03-11 10:29] LABS: ALBUMIN 3.3 g/dl (3.4-5.0); ANION GAP 7 (8-16); BLOOD UREA NITROGEN 16 mg/dL (7-18); CALCIUM 8.7 mg/dL (8.5-10.1); CHLORIDE 100 mmol/L (98-107); CO2 30 mmol/L (21-32); GLUCOSE,RANDOM 231 mg/dL (74-106); MAGNESIUM 2.4 mg/dL (1.8-2.4); POTASSIUM 4.1 mmol/L (3.5-5.1); SODIUM 137 mmol/L (136-145)
[2018-03-11 10:32] LABS: ALK PHOS 107 U/L (45-117); CREATININE 0.8 mg/dL (0.7-1.3); SGOT/AST 18 U/L (15-37); SGPT/ALT 24 U/L (12-78); TOT PROT 7.3 g/dl (6.4-8.2)
--- NOTE | 2018-03-11 10:39 | PN ---
Progress Note, Physician History of Present Illness: PULMONARY ALERT,COMFORTABLE,-RESP DISTRESS - Current Medication List Current Medications: Active Medications Albuterol/Ipratropium (Duoneb -) 1 amp NEB Q4HWA [facility] Last Admin: 03/11/18 06:55 Dose: 1 amp Aspirin (Asa -) 81 mg PO DAILY [facility] Last Admin: 03/11/18 09:10 Dose: 81 mg Atorvastatin Calcium (Lipitor -) 40 mg PO [facility] Last Admin: 03/10/18 21:53 Dose: 40 mg Carvedilol (Coreg -) 12.5 mg PO BID [facility] Last Admin: 03/11/18 09:10 Dose: 12.5 mg Cefuroxime Axetil (Ceftin -) 500 mg PO BID [facility] Last Admin: 03/11/18 09:10 Dose: 500 mg Dabigatran (Pradaxa -) 150 mg PO BID [facility] Last Admin: 03/11/18 09:10 Dose: 150 mg Docusate Sodium (Colace -) 200 mg PO [facility] Last Admin: 03/10/18 21:53 Dose: 200 mg Furosemide (Lasix -) 20 mg PO DAILY [facility] Last Admin: 03/11/18 09:10 Dose: 20 mg Insulin Aspart (Novolog Vial Sliding Scale -) 1 vial SQ [facility]; Protocol Last Admin: 03/11/18 06:34 Dose: 4 units Lisinopril (Prinivil) 2.5 mg PO DAILY [facility] Last Admin: 03/11/18 09:10 Dose: 2.5 mg Methylprednisolone Sodium Succinate (Solu-Medrol -) 40 mg IVPUSH Q8H-IV [facility] Last Admin: 03/11/18 09:09 Dose: 40 mg Quetiapine Fumarate (Seroquel -) 12.5 mg PO [facility] Last Admin: 03/10/18 21:53 Dose: 12.5 mg - Objective Vital Signs: Vital Signs Temperature 98.9 F 03/11/18 08:56 Pulse Rate 83 03/11/18 08:56 Respiratory Rate 18 03/11/18 08:56 Blood Pressure 157/101 03/11/18 08:56 O2 Sat by Pulse Oximetry (%) 94 L 03/11/18 06:00 Constitutional: Yes: Well Nourished, Calm Eyes: Yes: WNL HENT: Yes: WNL Neck: Yes: WNL Cardiovascular: Yes: Pulse Irregular, S1, S2 Respiratory: Yes: Wheezes (FEW SCATTERED AYAKA WHEEZES) Gastrointestinal: Yes: Normal Bowel Sounds, Soft Extremities: Yes: WNL Edema: No Labs: CBC, BMP 03/11/18 09:30 03/11/18 09:30 Problem List - Problems (1) Asthmatic bronchitis Code(s): J45.909 - UNSPECIFIED ASTHMA, UNCOMPLICATED (2) Hypertension Code(s): I10 - ESSENTIAL (PRIMARY) HYPERTENSION Qualifiers: Hypertension type: unspecified Qualified Code(s): I10 - Essential (primary ) hypertension (3) Afib Code(s): I48.91 - UNSPECIFIED ATRIAL FIBRILLATION (4) CAD (coronary artery disease) Code(s): I25.10 - ATHSCL HEART DISEASE OF [place] CORONARY ARTERY W/O ANG PCTRS (5) DM (diabetes mellitus) Code(s): E11.9 - TYPE 2 DIABETES MELLITUS WITHOUT COMPLICATIONS (6) Dementia Code(s): F03.90 - UNSPECIFIED DEMENTIA WITHOUT BEHAVIORAL DISTURBANCE (7) HTN (hypertension) Code(s): I10 - ESSENTIAL (PRIMARY) HYPERTENSION (8) URI (upper respiratory infection) Code(s): J06.9 - ACUTE UPPER RESPIRATORY INFECTION, UNSPECIFIED Assessment/Plan IMP ACUTE ASTHMATIC BRONCHITIS LIKELY URI AFIB ASHD HTN DEMENTIA DM PLAN INHALED BRONCHODILATORS MEDROL PO ABX O2 BP MEDS DR ROMANO Problem List - Problems (1) Asthmatic bronchitis Code(s): J45.909 - UNSPECIFIED ASTHMA, UNCOMPLICATED (2) Hypertension Code(s): I10 - ESSENTIAL (PRIMARY) HYPERTENSION Qualifiers: Hypertension type: unspecified Qualified Code(s): I10 - Essential (primary ) hypertension (3) Afib Code(s): I48.91 - UNSPECIFIED ATRIAL FIBRILLATION (4) CAD (coronary artery disease) Code(s): I25.10 - ATHSCL HEART DISEASE OF [place] CORONARY ARTERY W/O ANG PCTRS (5) DM (diabetes mellitus) Code(s): E11.9 - TYPE 2 DIABETES MELLITUS WITHOUT COMPLICATIONS (6) Dementia Code(s): F03.90 - UNSPECIFIED DEMENTIA WITHOUT BEHAVIORAL DISTURBANCE (7) HTN (hypertension) Code(s): I10 - ESSENTIAL (PRIMARY) HYPERTENSION (8) URI (upper respiratory infection) Code(s): J06.9 - ACUTE UPPER RESPIRATORY INFECTION, UNSPECIFIED
[2018-03-11] MEDS ORDERED: INSULIN (NOVOLOG) ASPART 100 UNITS/ML 10ML VIAL ONE (21:25)
[2018-03-11] MEDS: DOCUSATE SODIUM 100 MG CAPSULE (FP) PO SCH (21:34)
[2018-03-11] MEDS: QUEtiapine FUMARATE 25 MG TABLET (FP) PO SCH (21:34)
[2018-03-11] MEDS: ATORVASTATIN CA 40 MG TABLET (FP) PO SCH (21:34)
[2018-03-11] MEDS ORDERED: INSULIN (LEVEMIR) 100 UNITS/ML UNITS SQ SCH (22:00)
[2018-03-12] MEDS: ALBUTEROL SO4 2.5/IPRATROPIUM 0.5 INH SOL 3 ML VIAL.NEB. NEB SCH ×4 (06:12→20:51)
[2018-03-12] MEDS: INSULIN SLIDING SCALE (NOVOLOG) 1 VIAL SQ SCH ×5 (06:38→23:51)
[2018-03-12] MEDS: CEFUROXIME AXETIL 500 MG TABLET PO SCH ×2 (09:44→23:03)
[2018-03-12] MEDS: methylPREDNISolone NA SUCC 40 MG/1 ML VIAL IVPUSH SCH (09:51)
[2018-03-12] MEDS: ASPIRIN 81 MG CHEWABLE TABLETS PO SCH (09:51)
[2018-03-12] MEDS: LISINOPRIL 5 MG TABLET (FP) PO SCH (09:51)
[2018-03-12] MEDS: FUROSEMIDE 20 MG TABLET (FP) PO SCH (09:51)
[2018-03-12] MEDS: DABIGATRAN ETEXILATE MESYLATE 150 MG CAPSULE PO SCH ×2 (09:51→22:45)
[2018-03-12] MEDS: CARVEDILOL 12.5 MG TABLET (FP) PO SCH ×2 (09:51→22:45)
--- NOTE | 2018-03-12 09:56 | PN ---
Progress Note, Physician History of Present Illness: pulmonary alert,oob-chair,comfortable,-sob - Current Medication List Current Medications: Active Medications Albuterol/Ipratropium (Duoneb -) 1 amp NEB Q4HWA [facility] Last Admin: 03/12/18 06:12 Dose: Not Given Aspirin (Asa -) 81 mg PO DAILY [facility] Last Admin: 03/12/18 09:51 Dose: 81 mg Atorvastatin Calcium (Lipitor -) 40 mg PO [facility] Last Admin: 03/11/18 21:34 Dose: 40 mg Carvedilol (Coreg -) 12.5 mg PO BID [facility] Last Admin: 03/12/18 09:51 Dose: 12.5 mg Cefuroxime Axetil (Ceftin -) 500 mg PO BID [facility] Last Admin: 03/12/18 09:44 Dose: 500 mg Dabigatran (Pradaxa -) 150 mg PO BID [facility] Last Admin: 03/12/18 09:51 Dose: 150 mg Docusate Sodium (Colace -) 200 mg PO [facility] Last Admin: 03/11/18 21:34 Dose: 200 mg Furosemide (Lasix -) 20 mg PO DAILY [facility] Last Admin: 03/12/18 09:51 Dose: 20 mg Insulin Aspart (Novolog Vial Sliding Scale -) 1 vial SQ [facility]; Protocol Last Admin: 03/12/18 06:38 Dose: 4 units Insulin Detemir (Levemir Vial) 5 units SQ [facility] Last Admin: 03/11/18 21:35 Dose: 5 units Lisinopril (Prinivil) 2.5 mg PO DAILY [facility] Last Admin: 03/12/18 09:51 Dose: 2.5 mg Methylprednisolone Sodium Succinate (Solu-Medrol -) 40 mg IVPUSH BID [facility] Last Admin: 03/12/18 09:51 Dose: 40 mg Quetiapine Fumarate (Seroquel -) 12.5 mg PO [facility] Last Admin: 03/11/18 21:34 Dose: 12.5 mg - Objective Vital Signs: Vital Signs Temperature 98.1 F 03/12/18 09:00 Pulse Rate 69 03/12/18 09:00 Respiratory Rate 18 03/12/18 09:00 Blood Pressure 142/77 03/12/18 09:00 O2 Sat by Pulse Oximetry (%) 97 03/12/18 06:00 Constitutional: Yes: Well Nourished, Calm Eyes: Yes: WNL HENT: Yes: WNL Neck: Yes: WNL Cardiovascular: Yes: Regular Rate and Rhythm, S1, S2 Respiratory: Yes: Wheezes (less wheezes jonathan) Gastrointestinal: Yes: Normal Bowel Sounds, Soft Extremities: Yes: WNL Edema: No Problem List - Problems (1) Asthmatic bronchitis Code(s): J45.909 - UNSPECIFIED ASTHMA, UNCOMPLICATED (2) Hypertension Code(s): I10 - ESSENTIAL (PRIMARY) HYPERTENSION Qualifiers: Hypertension type: unspecified Qualified Code(s): I10 - Essential (primary ) hypertension (3) Afib Code(s): I48.91 - UNSPECIFIED ATRIAL FIBRILLATION (4) CAD (coronary artery disease) Code(s): I25.10 - ATHSCL HEART DISEASE OF [place] CORONARY ARTERY W/O ANG PCTRS (5) DM (diabetes mellitus) Code(s): E11.9 - TYPE 2 DIABETES MELLITUS WITHOUT COMPLICATIONS (6) Dementia Code(s): F03.90 - UNSPECIFIED DEMENTIA WITHOUT BEHAVIORAL DISTURBANCE (7) HTN (hypertension) Code(s): I10 - ESSENTIAL (PRIMARY) HYPERTENSION (8) URI (upper respiratory infection) Code(s): J06.9 - ACUTE UPPER RESPIRATORY INFECTION, UNSPECIFIED Assessment/Plan IMP ACUTE ASTHMATIC BRONCHITIS LIKELY URI AFIB ASHD HTN DEMENTIA DM PLAN INHALED BRONCHODILATORS D/C MEDROL PO ABX O2 BP MEDS DR ROMANO Problem List - Problems (1) Asthmatic bronchitis Code(s): J45.909 - UNSPECIFIED ASTHMA, UNCOMPLICATED (2) Hypertension Code(s): I10 - ESSENTIAL (PRIMARY) HYPERTENSION Qualifiers: Hypertension type: unspecified Qualified Code(s): I10 - Essential (primary ) hypertension (3) Afib Code(s): I48.91 - UNSPECIFIED ATRIAL FIBRILLATION (4) CAD (coronary artery disease) Code(s): I25.10 - ATHSCL HEART DISEASE OF [place] CORONARY ARTERY W/O ANG PCTRS (5) DM (diabetes mellitus) Code(s): E11.9 - TYPE 2 DIABETES MELLITUS WITHOUT COMPLICATIONS (6) Dementia Code(s): F03.90 - UNSPECIFIED DEMENTIA WITHOUT BEHAVIORAL DISTURBANCE (7) HTN (hypertension) Code(s): I10 - ESSENTIAL (PRIMARY) HYPERTENSION (8) URI (upper respiratory infection) Code(s): J06.9 - ACUTE UPPER RESPIRATORY INFECTION, UNSPECIFIED
--- NOTE | 2018-03-12 13:20 | PN ---
Physical Exam: SUBJECTIVE: Patient seen and examined. Sitting in hallway, eating meals. cooperative. in no acute distress. discharge planning to [facility] vs. back to [place] OBJECTIVE: Vital Signs Period Temp Pulse Resp BP Sys/Higgins Pulse Ox Last 24 Hr 97.6 F-98.5 F 66-80 14-20 123-179/65-89 97-97 GENERAL: The patient is awake, alert, in no acute distress. HEAD: Normal with no signs of trauma. NECK: Trachea midline, full range of motion, supple. LUNGS: clear/diminished breath sounds bilaterally no wheezing, not short of breath HEART: Regular rate and rhythm ABDOMEN: Soft, nontender, nondistended, normoactive bowel sounds, no guarding, no rebound, no hepatosplenomegaly, no masses. EXTREMITIES: 2+ pulses, warm, well-perfused, no edema. NEUROLOGICAL: Normal speech, gait not observed. PSYCH: Normal mood, normal affect. SKIN: Warm, dry, normal turgor, no rashes or lesions noted Laboratory Results - last 24 hr 03/11/18 03/11/18 03/12/18 17:14 21:33 05:39 POC Glucometer 226 212 197 03/12/18 11:41 POC Glucometer 251 Active Medications Generic Name Dose Route Start Last Admin Trade Name Freq PRN Reason Stop Dose Admin Albuterol/Ipratropium 1 amp 03/12/18 14:00 Duoneb - NEB RTID FRANCINE Aspirin 81 mg 03/10/18 10:00 03/12/18 09:51 Asa - PO 81 mg DAILY FRANCINE Administration Atorvastatin Calcium 40 mg 03/09/18 22:00 03/11/18 21:34 Lipitor - PO 40 mg HS FRANCINE Administration Carvedilol 12.5 mg 03/09/18 22:00 03/12/18 09:51 Coreg - PO 12.5 mg BID FRANCINE Administration Cefuroxime Axetil 500 mg 03/10/18 22:00 03/12/18 09:44 Ceftin - PO 500 mg BID FRANCINE Administration Dabigatran 150 mg 03/09/18 22:00 03/12/18 09:51 Pradaxa - PO 150 mg BID FRANCINE Administration Docusate Sodium 200 mg 03/09/18 22:00 03/11/18 21:34 Colace - PO 200 mg HS FRANCINE Administration Furosemide 20 mg 03/10/18 10:00 03/12/18 09:51 Lasix - PO 20 mg DAILY FRANCINE Administration Insulin Aspart 1 vial 03/11/18 15:43 03/12/18 11:55 Novolog Vial Sliding Scale - SQ 8 units ACHS FRANCINE Administration Protocol Insulin Detemir 5 units 03/11/18 22:00 03/11/18 21:35 Levemir Vial SQ 5 units HS FRANCINE Administration Lisinopril 2.5 mg 03/10/18 10:00 03/12/18 09:51 Prinivil PO 2.5 mg DAILY FRANCINE Administration Quetiapine Fumarate 12.5 mg 03/09/18 22:00 03/11/18 21:34 Seroquel - PO 12.5 mg HS FRANCINE Administration ASSESSMENT/PLAN: Patient is an 87 year old male with a significant past medical history of diabetes, hypertension, overactive bladder, atrial fibrillation (on Pradaxa). He presents to the ED today from his nursing facility for upper respiratory infection and difficulty with ambulation. Pulmonary Acute asthmatic bronchitis, improved No wheezing, not short of breath. Lungs sound improved. Solumedrol discontinued today by pulm. On duonebs scheduled and Ceftin BID. Cards Atrial fibrillation: On Pradaxa 150mg BID, Coreq 12.5mg BID Coronary artery disease: On ASA 81mg daily, Atorvastatin 40mg at bedtime. Trops negative. echo ordered. Hypertension: BP better controlled. On Lasix 20mg PO daily, Lisinopril 5mg PO daily, Coreq 12.5mg BID. Monitor BP and will increase meds if elevated. : Urinary incontinence, chronic Endocrine: Diabetes: Novolog SS with BGMs ac/hs. Neuro: Dementia, history. On Seroquel. FEN PO adequate monitor electrolytes diabetic diet prophy: on Pradaxa. GI: deferred Physical therapy Respiratory pre and post before discharge. Discharge plan: [facility] assisted living facility vs. SNF. Awaiting placement per . Visit type - Emergency Visit Emergency Visit: Yes ED Registration Date: 03/09/18 Care time: The patient presented to the Emergency Department on the above date and was hospitalized for further evaluation of their emergent condition. - New Patient This patient is new to me today: No - Critical Care Critical Care patient: No - Discharge Referral Referred to [facility] Med P.C.: No
[2018-03-12] MEDS ORDERED: LORazepam 2 MG/ML SDV VIAL IM ONE (22:30)
[2018-03-12] MEDS: QUEtiapine FUMARATE 25 MG TABLET (FP) PO SCH (22:45)
[2018-03-12] MEDS: DOCUSATE SODIUM 100 MG CAPSULE (FP) PO SCH (23:03)
[2018-03-12] MEDS: INSULIN (LEVEMIR) 100 UNITS/ML UNITS SQ SCH ×2 (23:03→23:43)
[2018-03-12] MEDS: ATORVASTATIN CA 40 MG TABLET (FP) PO SCH (23:04)
[2018-03-13] MEDS: INSULIN SLIDING SCALE (NOVOLOG) 1 VIAL SQ SCH ×4 (06:14→23:19)
[2018-03-13] MEDS: ALBUTEROL SO4 2.5/IPRATROPIUM 0.5 INH SOL 3 ML VIAL.NEB. NEB SCH ×3 (07:25→20:43)
[2018-03-13] MEDS: DABIGATRAN ETEXILATE MESYLATE 150 MG CAPSULE PO SCH ×2 (10:22→21:31)
[2018-03-13] MEDS: ASPIRIN 81 MG CHEWABLE TABLETS PO SCH (10:22)
[2018-03-13] MEDS: CARVEDILOL 12.5 MG TABLET (FP) PO SCH ×2 (10:22→21:33)
[2018-03-13] MEDS: LISINOPRIL 5 MG TABLET (FP) PO SCH (10:22)
[2018-03-13] MEDS: FUROSEMIDE 20 MG TABLET (FP) PO SCH (10:22)
[2018-03-13] MEDS: CEFUROXIME AXETIL 500 MG TABLET PO SCH ×2 (10:23→21:30)
--- NOTE | 2018-03-13 11:15 | PN ---
Progress Note (short form) - Note Progress Note: PULMONARY Denies shortness of breath or chest pain. Vital Signs Period Temp Pulse Resp BP Sys/Higgins Pulse Ox Last 24 Hr 97.4 F-98.4 F 64-78 0-14 142-153/73-84 98-98 Gen: NAD at rest Heart: RRR Lung: decreased breath sounds at the bases Abd: soft, nontender Ext: no edema CBC, BMP 03/11/18 09:30 03/11/18 09:30 Active Medications Albuterol/Ipratropium (Duoneb -) 1 amp NEB RTID [facility] Last Admin: 03/13/18 07:25 Dose: 1 amp Aspirin (Asa -) 81 mg PO DAILY [facility] Last Admin: 03/13/18 10:22 Dose: 81 mg Atorvastatin Calcium (Lipitor -) 40 mg PO HS [facility] Last Admin: 03/12/18 23:04 Dose: Not Given Carvedilol (Coreg -) 12.5 mg PO BID [facility] Last Admin: 03/13/18 10:22 Dose: 12.5 mg Cefuroxime Axetil (Ceftin -) 500 mg PO BID [facility] Last Admin: 03/13/18 10:23 Dose: 500 mg Dabigatran (Pradaxa -) 150 mg PO BID [facility] Last Admin: 03/13/18 10:22 Dose: 150 mg Docusate Sodium (Colace -) 200 mg PO [facility] Last Admin: 03/12/18 23:03 Dose: Not Given Furosemide (Lasix -) 20 mg PO DAILY [facility] Last Admin: 03/13/18 10:22 Dose: 20 mg Insulin Aspart (Novolog Vial Sliding Scale -) 1 vial SQ [facility]; Protocol Last Admin: 03/13/18 06:14 Dose: Not Given Insulin Detemir (Levemir Vial) 10 units SQ [facility] Last Admin: 03/12/18 23:43 Dose: 10 units Lisinopril (Prinivil) 2.5 mg PO DAILY [facility] Last Admin: 03/13/18 10:22 Dose: 2.5 mg Quetiapine Fumarate (Seroquel -) 12.5 mg PO [facility] Last Admin: 03/12/18 22:45 Dose: 12.5 mg A/P Acute Asthmatic Bronchitis improving Atrial Fibrillation CAD HTN DM Dementia - inhaled bronchodilators - complete antibiotics - s/p medrol course - O2 as needed - DVT prophylaxis - d/c planning
--- NOTE | 2018-03-13 11:58 | PN ---
Progress Note (short form) - Note Progress Note: Subjective: The patient was seen and examined at the bedside, he appears comfortable and pleasant at this time. Walked 60ft with PT Current Medications Generic Name Dose Route Start Last Admin Trade Name Brittany PRN Reason Stop Dose Admin Albuterol/Ipratropium 1 amp 03/12/18 14:00 03/13/18 07:25 Duoneb - NEB 1 amp RTID FRANCINE Administration Aspirin 81 mg 03/10/18 10:00 03/13/18 10:22 Asa - PO 81 mg DAILY FRANCINE Administration Atorvastatin Calcium 40 mg 03/09/18 22:00 03/12/18 23:04 Lipitor - PO Not Given HS FRANCINE Carvedilol 12.5 mg 03/09/18 22:00 03/13/18 10:22 Coreg - PO 12.5 mg BID FRANCINE Administration Cefuroxime Axetil 500 mg 03/10/18 22:00 03/13/18 10:23 Ceftin - PO 500 mg BID FRANCINE Administration Dabigatran 150 mg 03/09/18 22:00 03/13/18 10:22 Pradaxa - PO 150 mg BID FRANCINE Administration Docusate Sodium 200 mg 03/09/18 22:00 03/12/18 23:03 Colace - PO Not Given HS FRANCINE Furosemide 20 mg 03/10/18 10:00 03/13/18 10:22 Lasix - PO 20 mg DAILY FRANCINE Administration Insulin Aspart 1 vial 03/11/18 15:43 03/13/18 06:14 Novolog Vial Sliding Scale - SQ Not Given ACHS [facility] Protocol Insulin Detemir 10 units 03/12/18 22:00 03/12/18 23:43 Levemir Vial SQ 10 units HS FRANCINE Administration Lisinopril 2.5 mg 03/10/18 10:00 03/13/18 10:22 Prinivil PO 2.5 mg DAILY FRANCINE Administration Quetiapine Fumarate 12.5 mg 03/09/18 22:00 03/12/18 22:45 Seroquel - PO 12.5 mg HS FRANCINE Administration Objective: Vital Signs Period Temp Pulse Resp BP Sys/Higgins Pulse Ox Last 24 Hr 97.4 F-98.4 F 64-78 0-14 142-153/73-84 98-98 Physical Exam: General: NAD Lungs: CTA anteriorly Heart: RRR, S1S2, +murmur Abd: Soft, non-tender, non-distended. Normoactive bowel sounds Ext: Warm, well-perfused. 2+ DP/PT bilaterally CBCD WBC 4.1 K/mm3 (4.0-10.0) 03/11/18 09:30 RBC 4.70 M/mm3 (4.00-5.60) 03/11/18 09:30 Hgb 14.1 GM/dL (11.7-16.9) 03/11/18 09:30 Hct 40.2 % (35.4-49) 03/11/18 09:30 MCV 85.5 fl (80-96) 03/11/18 09:30 MCHC 35.1 g/dl (32.0-35.9) 03/11/18 09:30 RDW 14.2 % (11.9-15.9) 03/11/18 09:30 Plt Count 155 K/MM3 (134-434) 03/11/18 09:30 MPV 7.5 fl (7.5-11.1) 03/11/18 09:30 CMP Sodium 137 mmol/L (136-145) 03/11/18 09:30 Potassium 4.1 mmol/L (3.5-5.1) 03/11/18 09:30 Chloride 100 mmol/L (98-107) 03/11/18 09:30 Carbon Dioxide 30 mmol/L (21-32) 03/11/18 09:30 Anion Gap 7 (8-16) L 03/11/18 09:30 BUN 16 mg/dL (7-18) 03/11/18 09:30 Creatinine 0.8 mg/dL (0.7-1.3) 03/11/18 09:30 Creat Clearance w eGFR > 60 (>60) 03/11/18 09:30 Random Glucose 231 mg/dL (74-106) H D 03/11/18 09:30 Calcium 8.7 mg/dL (8.5-10.1) 03/11/18 09:30 Total Bilirubin 1.0 mg/dL (0.2-1.0) 03/11/18 09:30 AST 18 U/L (15-37) 03/11/18 09:30 ALT 24 U/L (12-78) 03/11/18 09:30 Alkaline Phosphatase 107 U/L (45-117) 03/11/18 09:30 Total Protein 7.3 g/dl (6.4-8.2) 03/11/18 09:30 Albumin 3.3 g/dl (3.4-5.0) L 03/11/18 09:30 CARDIAC ENZYMES Troponin I 0.02 ng/ml (0.00-0.05) 03/10/18 02:02 Assessment: This is 87 year old male with PMHx of DM, HTN, overactive bladder, A.fib on Pradaxa, who presented to the ED with upper respiratory infection and difficulty ambulating Plan: 1) Acute asthmatic bronchitis - Continue Duonebs - Off steroids now - Continue Ceftin - Appreciate pulmonary consult 2) A.fib - Continue Pradaxa - Continue Coreg 3) HTN - Continue Lasix - Continue Prinivil 4) Hyperlipidemia - Continue Lipitor 5) DM - BGM ACHS - ISS ACHS - Continue Levemir 10u sq HS 6) Dementia - Patient has been quite pleasant today, not combative - Continue Seroquel 7) Dispo: - SNF vs. transport back to [facility] Visit type - Emergency Visit Emergency Visit: Yes ED Registration Date: 03/09/18 Care time: The patient presented to the Emergency Department on the above date and was hospitalized for further evaluation of their emergent condition. - New Patient This patient is new to me today: Yes Date on this admission: 03/13/18 - Critical Care Critical Care patient: No
[2018-03-13] MEDS ORDERED: PT OWN MED DRAWER 7, Y5N ONE (21:20)
[2018-03-13] MEDS: QUEtiapine FUMARATE 25 MG TABLET (FP) PO SCH (21:31)
[2018-03-13] MEDS: ATORVASTATIN CA 40 MG TABLET (FP) PO SCH (21:33)
[2018-03-13] MEDS: DOCUSATE SODIUM 100 MG CAPSULE (FP) PO SCH (21:33)
[2018-03-13] MEDS: INSULIN (LEVEMIR) 100 UNITS/ML UNITS SQ SCH (21:34)
[2018-03-14] MEDS: INSULIN SLIDING SCALE (NOVOLOG) 1 VIAL SQ SCH ×3 (06:41→17:12)
[2018-03-14] MEDS: ALBUTEROL SO4 2.5/IPRATROPIUM 0.5 INH SOL 3 ML VIAL.NEB. NEB SCH ×2 (08:51→14:00)
[2018-03-14] MEDS: LISINOPRIL 5 MG TABLET (FP) PO SCH (09:54)
[2018-03-14] MEDS: CARVEDILOL 12.5 MG TABLET (FP) PO SCH (09:56)
[2018-03-14] MEDS: FUROSEMIDE 20 MG TABLET (FP) PO SCH (09:57)
[2018-03-14] MEDS: DABIGATRAN ETEXILATE MESYLATE 150 MG CAPSULE PO SCH (09:57)
[2018-03-14] MEDS: ASPIRIN 81 MG CHEWABLE TABLETS PO SCH (09:57)
--- NOTE | 2018-03-14 10:31 | PN ---
Progress Note (short form) - Note Progress Note: PULMONARY Denies shortness of breath or chest pain. Ambulated with PT. Vital Signs Period Temp Pulse Resp BP Sys/Higgins Pulse Ox Last 24 Hr 97.3 F-98.1 F 64-65 18-20 135-150/77-82 98-98 Gen: NAD at rest Heart: RRR Lung: decreased breath sounds at the bases Abd: soft, nontender Ext: no edema CBC, BMP 03/11/18 09:30 03/11/18 09:30 Active Medications Albuterol/Ipratropium (Duoneb -) 1 amp NEB RTID [facility] Last Admin: 03/14/18 08:51 Dose: 1 amp Aspirin (Asa -) 81 mg PO DAILY [facility] Last Admin: 03/14/18 09:57 Dose: 81 mg Atorvastatin Calcium (Lipitor -) 40 mg PO HS [facility] Last Admin: 03/13/18 21:33 Dose: 40 mg Carvedilol (Coreg -) 12.5 mg PO BID [facility] Last Admin: 03/14/18 09:56 Dose: 12.5 mg Cefuroxime Axetil (Ceftin -) 500 mg PO BID [facility] Last Admin: 03/13/18 21:30 Dose: 500 mg Dabigatran (Pradaxa -) 150 mg PO BID [facility] Last Admin: 03/14/18 09:57 Dose: 150 mg Docusate Sodium (Colace -) [address] [facility] Last Admin: 03/13/18 21:33 Dose: 200 mg Furosemide (Lasix -) 20 mg PO DAILY [facility] Last Admin: 03/14/18 09:57 Dose: 20 mg Insulin Aspart (Novolog Vial Sliding Scale -) 1 vial SQ [facility]; Protocol Last Admin: 03/14/18 06:41 Dose: Not Given Insulin Detemir (Levemir Vial) [address] [facility] Last Admin: 03/13/18 21:34 Dose: 10 units Lisinopril (Prinivil) 2.5 mg PO DAILY [facility] Last Admin: 03/14/18 09:54 Dose: 2.5 mg Quetiapine Fumarate (Seroquel -) 12.[address] [facility] Last Admin: 03/13/18 21:31 Dose: 12.5 mg A/P Acute Asthmatic Bronchitis improving Atrial Fibrillation CAD HTN DM Dementia - inhaled bronchodilators - complete antibiotics - s/p medrol course - rate controlled - continue anticoagulation - O2 as needed - DVT prophylaxis - d/c planning
[2018-03-14] MEDS: CEFUROXIME AXETIL 500 MG TABLET PO SCH (10:33)
[2018-03-14] MEDS ORDERED: INSULIN (NOVOLOG) ASPART 100 UNITS/ML 10ML VIAL ONE (11:48)
--- NOTE | 2018-03-14 13:57 | DS ---
Physical Examination Vital Signs: Vital Signs Temperature 97.2 F L 03/14/18 10:00 Pulse Rate 68 03/14/18 10:00 Respiratory Rate 20 03/14/18 10:00 Blood Pressure 161/81 03/14/18 10:00 O2 Sat by Pulse Oximetry (%) 100 03/14/18 10:00 Findings/Remarks: Physical Exam: General: NAD Lungs: CTA anteriorly Heart: RRR, S1S2, +murmur Abd: Soft, non-tender, non-distended. Normoactive bowel sounds Ext: Warm, well-perfused. 2+ DP/PT bilaterally Labs: CBC, BMP 03/11/18 09:30 03/11/18 09:30 Discharge Summary Reason For Visit: ENCOUNTER FOR EXAM FOR ADMISSION TO HOME Current Active Problems Asthmatic bronchitis (Acute) Encounter for examination for admission to long-term (Acute) URI (upper respiratory infection) (Acute) Hospital Course: This is 87 year old male with PMHx of DM, HTN, overactive bladder, A.fib on Pradaxa, who presented to the ED with upper respiratory infection and difficulty ambulating Plan: 1) Acute asthmatic bronchitis - Continue Duonebs - Off steroids now - Continue Ceftin - Appreciate pulmonary consult 2) A.fib - Continue Pradaxa - Continue Coreg 3) HTN - Continue Lasix - Continue Prinivil 4) Hyperlipidemia - Continue Lipitor 5) DM - BGM ACHS - ISS ACHS - Continue Levemir 10u sq HS 6) Dementia - Patient has been quite pleasant today, not combative - Continue Seroquel Condition: Improved - Instructions Diet, Activity, Other Instructions: Please return to the ED with new, persistent, or worsening symptoms. Please follow-up with providers as indicated. Novolog Insulin Sliding Scale (ACHS- before meals and at bedtime) Blood sugar Novolog units Less than 150 0 151-200 2 201-250 4 251-300 6 301-350 8 350-400 10 More than 400 Call your primary care provider Referrals: Sharon Bui MD [Primary Care Provider] - Mathew Suero MD, MD [Staff Physician] - (Please follow-up with Dr. Suero (pulmonary ) within 2-3 days for further management of your asthma. ) Disposition: NURSING HOME FACILITY - Home Medications Comprehensive Discharge Medication List: Ambulatory Orders Aspirin 81 mg PO DAILY 10/22/17 Carvedilol 12.5 mg PO BID 10/22/17 Dabigatran Etexilate Mesylate [Pradaxa -] 150 mg PO BID 10/22/17 Lisinopril 2.5 mg PO DAILY 10/22/17 Polyethylene Glycol 3350 [Glycolax] 1 scoop PO DAILY 10/22/17 Quetiapine Fumarate [Seroquel -] 12.5 mg PO HS 10/22/17 Atorvastatin Ca [Lipitor] 40 mg PO HS 10/23/17 Docusate Sodium [Colace -] 200 mg PO HS 10/23/17 Furosemide [Lasix -] 20 mg PO DAILY #30 tablet 10/24/17 Albuterol 2.5/Ipratropium 0.5 [Duoneb -] 1 amp NEB RTID amp 03/14/18 Cefuroxime Axetil [Ceftin -] 500 mg PO BID #0 tablet 03/14/18 Insulin (Levemir) [Levemir Vial] 10 units SQ HS units 03/14/18 Insulin Sliding Scale [Novolog Vial Sliding Scale -] 1 vial SQ ACHS units 03/14 This patient is new to me today: No Emergency Visit: Yes ED Registration Date: 03/09/18 Care time: The patient presented to the Emergency Department on the above date and was hospitalized for further evaluation of their emergent condition. Critical Care patient: No - Discharge Referral Referred to [facility] No
[2018-03-14 14:36] VITALS: BP 124/63; PULSE 64; TEMP 98.7
== END 2018-03-14 20:22 ==
LOC: JER 14:15 → JERBED 17:50 → J6S 23:21
PROVIDERS: ADMIT Internal Medicine; ATTEND Registered Nurse
PROC: 3E0333Z Introduction of Anti-inflammatory into Peripheral Vein, Percutaneous Approach (ICD-10-PCS; principal; 2018-03-09)
PROC: 3E013GC Introduction of Other Therapeutic Substance into Subcutaneous Tissue, Percutaneous Approach (ICD-10-PCS; 2018-03-09)
PROC: 3E0F7GC Introduction of Other Therapeutic Substance into Respiratory Tract, Via Natural or Artificial Opening (ICD-10-PCS; 2018-03-09)
DX: Z02.2 Encounter for examination for admission to residential institution (principal); J45.998 Other asthma; I48.2 Chronic atrial fibrillation; I10 Essential (primary) hypertension; I25.10 Atherosclerotic heart disease of native coronary artery without angina pectoris; F03.90 Unspecified dementia, unspecified severity, without behavioral disturbance, psychotic disturbance, mood disturbance, and anxiety; E11.9 Type 2 diabetes mellitus without complications; E78.5 Hyperlipidemia, unspecified; F41.9 Anxiety disorder, unspecified; N32.81 Overactive bladder; I44.7 Left bundle-branch block, unspecified
CPT/HCPCS: 36415; 71045-TC-FY; 74176-TC; 80053; 81003; 81015; 82550; 82803; 82962; 83605; 83690; 83735; 84484; 85025; 85610; 87040; 87086; 93005; 93010; 94640; 94761; 96372; 96374; 96375; 97116-GP; 99282-25; 99285-25; G0378; J0131; J7030; J7620